=== PATIENT | female | born 1940 | race African-American/Black ===

== ENCOUNTER 2016-05-01 14:03 | Inpatient (IN) | payer OTHER ==
[2016-05-01 14:25] VITALS: BMI 30.4
--- NOTE | 2016-05-01 14:35 | PDOC ---
History of Present Illness <Alejandro Fink - Last Filed: 05/01/16 17:23> - General History Source: Patient Exam Limitations: No Limitations - History of Present Illness Initial Comments: 05/01/16 15:45 The patient is a 76-yea-old woman, accompanied by daughter, with a significant past medical history of hypertension, congestive heart failure (on 80mg of Lasix), renal failure s/p renal stents, non-insulin dependent diabetes mellitus and breast Ca (currently on Tamoxifen) who presents to the emergency department via EMS for further evaluation of shortness of breath for the past 2 days. As per EMS, the patient was noted to be lethargic, short of breath with associated bilateral leg swelling by her visiting nurse. The visiting nurse performed a physical examination and noted "fluid in her lungs", and did not feel comfortable taking care of her and EMS was activated. As per daughter, it is unaware if patient is complaint with her Lasix (80 mg). Patient was recently admitted to this hospital for CHF exacerbation, for which during discharged, the patient's Lasix was discussed as she is in renal failure. Primary Care Physician: Joe Recinos [phone] Sales Driver/Oncologist: Dr. Josue Orozco ([phone] <Dana Samuel - Last Filed: 05/01/16 18:08> - General Stated Complaint: SWELLING OF THE LEG Past History - Past Medical History Anemia: Yes Asthma: No Cancer: Yes (right breast ca) Cardiac Disorders: Yes (CHF) CVA: No COPD: No CHF: No Dementia: No Diabetes: Yes GI Disorders: Yes (small bowel obstruction) Disorders: No HTN: Yes Hypercholesterolemia: No Liver Disease: No Suicide Attempt (Hx): No Seizures: No Thyroid Disease: No - Surgical History Abdominal Surgery: No Appendectomy: No Cardiac Surgery: No Cholecystectomy: No Lung Surgery: No Neurologic Surgery: No Orthopedic Surgery: Yes - Immunization History Td Vaccination: Yes Immunization Up to Date: Yes - Psycho/Social/Smoking Cessation Hx Anxiety: No Suicidal Ideation: No Smoking Status: No Smoking History: Never smoked Have you smoked in the past 12 months: No Number of Cigarettes Smoked Daily: 0 If you are a former smoker, when did you quit?: 40 yrs ago Cigars Per Day: 0 Information on smoking cessation initiated: No Hx Alcohol Use: No Drug/Substance Use Hx: No Substance Use Type: None Hx Substance Use Treatment: No <Alejandro Fink - Last Filed: 05/01/16 17:23> <Dana Samuel - Last Filed: 05/01/16 18:08> - Past Medical History Allergies/Adverse Reactions: Allergies Allergy/AdvReac Type Severity Reaction Status Date / Time No Known Drug Allergies Allergy Verified 05/01/16 14:38 Home Medications: Ambulatory Orders Amlodipine Besylate [Norvasc -] 5 mg PO DAILY 05/01/16 Atenolol [Tenormin] 50 mg PO DAILY 05/01/16 Calcium Acetate [Phoslo -] 667 mg PO TID 05/01/16 Dronabinol [Marinol] 5 mg PO DAILY 05/01/16 Furosemide [Lasix] 80 mg PO DAILY 05/01/16 Oxycodone HCl 5 mg PO QID 05/01/16 Pantoprazole Sodium [Protonix] 40 mg PO DAILY 05/01/16 Polyethylene Glycol 3350 [Miralax (For Daily Use) -] 17 gm PO DAILY 05/01/16 Sitagliptin Phosphate [Januvia] 25 mg PO DAILY 05/01/16 Tamoxifen Citrate 20 mg PO DAILY 05/01/16 Review of Systems - Review of Systems Able to Perform ROS?: Yes Comments:: 05/01/16 15:45 GENERAL/CONSTITUTIONAL: Yes: +Weakness. No fever or chills. HEAD, EYES, EARS, NOSE AND THROAT: No change in vision. No ear pain or discharge. No sore throat. CARDIOVASCULAR: Yes: +Shortness of breath. No chest pain. RESPIRATORY: No cough, wheezing, or hemoptysis. GASTROINTESTINAL: No nausea, vomiting, diarrhea or constipation. GENITOURINARY: No dysuria, frequency, or change in urination. MUSCULOSKELETAL: No joint or muscle swelling or pain. No neck or back pain. SKIN: No rash NEUROLOGIC: No headache, vertigo, loss of consciousness, or change in strength/ sensation. ENDOCRINE: No increased thirst. No abnormal weight change. HEMATOLOGIC/LYMPHATIC: No anemia, easy bleeding, or history of blood clots. ALLERGIC/IMMUNOLOGIC: No hives or skin allergy. <Dana Samuel - Last Filed: 05/01/16 18:08> *Physical Exam - Vital Signs Last Vital Signs Temp Pulse Resp BP Pulse Ox 98.6 F 52 L 19 116/77 97 05/01/16 14:18 05/01/16 14:18 05/01/16 14:18 05/01/16 14:18 05/01/16 14:18 <Alejandro Fink - Last Filed: 05/01/16 17:23> - Vital Signs Last Vital Signs Temp Pulse Resp BP Pulse Ox 98.6 F 52 L 19 116/77 97 05/01/16 14:18 05/01/16 14:18 05/01/16 14:18 05/01/16 14:18 05/01/16 14:18 - Physical Exam Comments: 05/01/16 15:45 GENERAL: Awake, alert. On non-rebreather. HEAD: No signs of trauma. +JVD, bilaterally. EYES: PERRLA, EOMI, sclera anicteric, conjunctiva clear ENT: Auricles normal inspection, hearing grossly normal, nares patent, oropharynx clear without exudates. NECK: Normal ROM, supple, no lymphadenopathy, JVD, or masses LUNGS: +There are rales in the lower lung bases, bilaterally. HEART: Regular rate and rhythm, normal S1 and S2, no murmurs, rubs or gallops ABDOMEN: Soft, nontender, normoactive bowel sounds. No guarding, no rebound. No masses EXTREMITIES: Normal range of motion, 3+ pitting edema bilaterally. No clubbing or cyanosis. No cords, erythema, or tenderness. PT pulses 2+ palpable but DP pulses not palpable NEUROLOGICAL: Cranial nerves II through XII grossly intact. Normal speech. SKIN: There is skin discoloration of the distal tibia <Dana Samuel - Last Filed: 05/01/16 18:08> ED Treatment Course - LABORATORY CBC & Chemistry Diagram: 05/01/16 15:05 05/01/16 15:05 <Alejandro Fink - Last Filed: 05/01/16 17:23> - LABORATORY CBC & Chemistry Diagram: 05/01/16 15:05 05/01/16 15:05 - ADDITIONAL ORDERS Additional order review: 05/01/16 15:05 RBC 2.73 L MCV 93.5 MCHC 32.0 RDW 16.7 H MPV 9.4 D Neutrophils % 79.2 Lymphocytes % 10.0 Monocytes % 9.3 Eosinophils % 0.9 Basophils % 0.6 <Dana Samuel - Last Filed: 05/01/16 18:08> Medical Decision Making - Medical Decision Making 05/01/16 17:06 A call was placed to patient's Primary Care Physician, Dr. Briseyda Recinos at [phone]. Awaiting call back. 05/01/16 17:[address] Briseyda Recinos. Case was discussed. Accepts case. Would like Rubber Washer, Dr. Cade Altamirano and Gluer Machine Setup Operator, Dr. Chapincito Jordan on consult. <Dana Samuel - Last Filed: 05/01/16 18:08> *DC/Admit/Observation/Transfer - Discharge Dispostion Admit: Yes <Alejandro Fink - Last Filed: 05/01/16 17:23> - Attestations Scribe Attestion: 05/01/16 15:45 Documentation prepared by Dana Samuel, acting as registered medical transcriptionist for Alejandro Fink MD. <Dana Samuel - Last Filed: 05/01/16 18:08> Diagnosis at time of Disposition: CHF (congestive heart failure) - Discharge Dispostion Condition at time of disposition: Guarded - Referrals Referrals: Briseyda Recinos MD [Primary Care Provider] -
[2016-05-01] MEDS ORDERED: FUROSEMIDE 40 MG/4 ML INJECTABLE VIAL IVPUSH ONE (14:44)
[2016-05-01 15:34] LABS: BASOPHIL 0.6 % (0-2.0); EOSINOPHIL 0.9 % (0-4.5); MEAN CELL VOLUME 93.5 fl (80-96); MEAN PLT VOLUME 9.4 fl (7.5-11.1); NEUTROPHILS 79.2 % (42.8-82.8); PLATELET COUNT 133 K/MM3 (134-434); RDW 16.7 % (11.6-15.6); WHITE BLOOD COUNT 4.3 K/mm3 (4.0-10.0)
[2016-05-01 15:47] LABS: INR 1.2 (0.82-1.09); PROTHROMBIN TIME (PATIENT) 13.3 SEC (9.98-11.88)
[2016-05-01] MEDS ORDERED: FUROSEMIDE 40 MG/4 ML INJECTABLE VIAL ONE (15:49)
[2016-05-01 15:50] LABS: ACTIVATED PTT 56.7 SECONDS (26.9-34.4)
[2016-05-01 16:01] LABS: ALBUMIN 2.3 g/dl (3.4-5.0); ANION GAP 7 (8-16); BILIRUBIN,TOTAL 0.2 mg/dL (0.2-1.0); CALCIUM 7.9 mg/dL (8.5-10.1); CO2 25 mmol/L (21-32); CREATININE 3.4 mg/dL (0.55-1.02); GLUCOSE,RANDOM 82 mg/dL (74-106); MAGNESIUM 2.3 mg/dL (1.8-2.4); SGOT/AST 48 U/L (15-37); SGPT/ALT 24 U/L (12-78); TOT PROT 7.3 g/dl (6.4-8.2)
[2016-05-01 16:03] LABS: ALK PHOS 164 U/L (45-117); TROPONIN I < 0.02 ng/ml (0.00-0.05)
[2016-05-01] MEDS ORDERED: oxyCODONE HCL 5 MG TABLET PO PRN (21:08)
[2016-05-01] MEDS ORDERED: VANCOMYCIN 1 GRAM (PRE-DOCKED) 1,000 MG/250 ML BAG IVPB ONE (23:15)
[2016-05-02 01:05] LABS: URINE APPEARANCE SLCLOUDY; URINE BILIRUBIN NEGATIVE (NEGATIVE); URINE COLOR STRAW; URINE GLUCOSE (UA) NEGATIVE (NEGATIVE); URINE KETONE NEGATIVE (NEGATIVE); URINE NITRITE NEGATIVE (NEGATIVE); URINE PROTEIN NEGATIVE (NEGATIVE); URINE UROBILINOGEN NEGATIVE E.U./dl (0.2-1.0)
[2016-05-02 01:18] LABS: URINE BLOOD 2+ (NEGATIVE)
[2016-05-02 01:19] LABS: URINE LEUK ESTERASE 3+ (NEGATIVE)
[2016-05-02 01:23] LABS: CALCIUM OXALATE CRYSTALS RARE /hpf (NONE SEEN); URINE BACTERIA MODERATE /hpf (NONE SEEN); URINE HYALINE CAST 3 /lpf; URINE RBC 42 /hpf (0-3); URINE WBC 74 /hpf (3-5); YEAST MANY
--- NOTE | 2016-05-02 02:03 | HOSP ---
Addendum entered and electronically signed by Gloria Worthy RES 05/02/16 02: 05: hypotention may be due to overdiuresis (80 mg IV lasix push in ED). record i and o Original Note: Subjective - Review of Symptoms Events since last encounter: hypotension, hypothermia Subjective: patient aaox3, nad, resting comfortably, responsive, feels well and has no complaints. denies f/c, dizziness, h/a, sob, nausea, chest pain. HEENT: No: Head Aches Pulmonary: No: Dyspnea, Cough, Pleuritic Chest Pain, Other Cardiovascular: No: Chest Pain, Palpitations, Orthopnea, Paroxysmal Noc. Dyspnea , Edema, Light Headedness, Other Gastrointestinal: No: Nausea Neurological: No: Weakness, Confusion Physical Examination Vital Signs: Vital Signs Temperature 94.5 F L 05/02/16 01:13 Pulse Rate 54 L 05/01/16 21:50 Respiratory Rate 16 05/01/16 21:50 Blood Pressure 80/44 05/02/16 01:13 O2 Sat by Pulse Oximetry (%) 100 05/01/16 21:50 Constitutional: Yes: No Distress, Calm Eyes: Yes: Conjunctiva Clear HENT: Yes: Normocephalic Neck: Yes: Supple Cardiovascular: Yes: Regular Rate and Rhythm, S1, S2 Respiratory: Yes: Rhonchi (mild bibasilar) Gastrointestinal: Yes: Normal Bowel Sounds, Soft Extremities: Yes: Other (warm) Edema: LLE: 1+, RLE: 1+ Peripheral Pulses: Left Radial: 2+, Right Radial: 2+ Neurological: Yes: Alert, Oriented Psychiatric: Yes: Alert, Oriented Hospitalist Encounter Assessment: hypertension in 76 F with Acute on chronic CHF exacerbation (diastolic) likely due to prolonged supine position or vasovagal during sleep -asymptomatic. -hold lasix and BP meds for now -if systolic drops below 70 or if mental status changes then patietn may need dopamine drip but not at this time -vitals q4 h -mental status check q 1 h Visit type - Emergency Visit Emergency Visit: No - New Patient This patient is new to me today: Yes Date on this admission: 05/02/16 - Critical Care Critical Care patient: No
[2016-05-02] MEDS ORDERED: PNEUMOC 13-VAL CONJ-DIP CRM/PF 0.5 ML DISP.SYRIN IM ONE (02:56)
--- NOTE | 2016-05-02 04:25 | CONSULT ---
Consult Consult Specialty:: Pulm/CCM Reason for Consultation:: hypotension, CHF - History of Present Illness Chief Complaint: SOB History of Present Illness: This is a 76 yo woman with DM, HTN, diastolic HF, CKD, breast CA w/ metastasis on chemo who presented with increased LE edema and SOB x2 days. EMS activated by [facility] for lethargy and SOB. In the ED. In ED labs notable for SCr 3.4, previously 1.0 in 2015. CXR with pulmonary vascular congestion and effusions. BNP 12k. Lasix 80mg IV given. Patient admitted to hospitalist service. While on the floor she was noted to have SBP 70s and she was transferred to ICU for possible pressors +/- inotropic support. In the ICU patient seen, awake, alert. Hemodynamically stable: SBP 140-160s. Labs notable for u/a +LE, wbc 50s. She was hypothermic on the floor. Keflex started for UTI. Bentley placed and lasix 80mg x1 given. ECHO pending. - History Source History Provided By: Patient, Family Member - Past Medical History Cardio/Vascular: Yes: CAD, HTN Gastrointestinal: Yes: Other (SEROSAL METS WIHT HISTORY OF SBO) ...: No Rheumatology: Yes: Other (Surgery on right hip for metastasis and ?pathological fracture.) Endocrine: Yes: Diabetes Mellitus - Alcohol/Substance Use Hx Alcohol Use: No - Smoking History Smoking history: Former smoker Have you smoked in the past 12 months: No Aproximately how many cigarettes per day: 0 If you are a former smoker, when did you quit?: 40 yrs ago - Social History Usual Living Arrangement: Alone ADL: Support Services Occupation: retired History of Recent Travel: No Home Medications - Allergies Allergies/Adverse Reactions: Allergies Allergy/AdvReac Type Severity Reaction Status Date / Time No Known Drug Allergies Allergy Verified 05/01/16 14:38 - Home Medications Home Medications: Ambulatory Orders Amlodipine Besylate [Norvasc -] 5 mg PO DAILY 05/01/16 Atenolol [Tenormin] 50 mg PO DAILY 05/01/16 Calcium Acetate [Phoslo -] 667 mg PO TID 05/01/16 Dronabinol [Marinol] 5 mg PO DAILY 05/01/16 Furosemide [Lasix] 80 mg PO DAILY 05/01/16 Oxycodone HCl 5 mg PO QID 05/01/16 Pantoprazole Sodium [Protonix] 40 mg PO DAILY 05/01/16 Polyethylene Glycol 3350 [Miralax (For Daily Use) -] 17 gm PO DAILY 05/01/16 Sitagliptin Phosphate [Januvia] 25 mg PO DAILY 05/01/16 Tamoxifen Citrate 20 mg PO DAILY 05/01/16 Family Disease History - Family Disease History Family History: Unremarkable Review of Systems - Review of Systems Constitutional: reports: Weakness Cardiovascular: reports: Edema, Shortness of Breath Respiratory: reports: SOB on Exertion Physical Exam Vital Signs: Vital Signs Temperature 96.7 F L 05/02/16 02:34 Pulse Rate 54 L 05/01/16 21:50 Respiratory Rate 16 05/01/16 21:50 Blood Pressure 76/50 05/02/16 02:34 O2 Sat by Pulse Oximetry (%) 100 05/01/16 21:50 Current Medications Atenolol (Tenormin -) 50 mg PO DAILY [facility] Calcium Acetate (Phoslo -) 667 mg PO TIDCM [facility] Dronabinol (Marinol -) 5 mg PO DAILY [facility] Oxycodone HCl (Roxicodone -) 5 mg PO Q6H PRN PRN Reason: BACK PAIN Pantoprazole Sodium (Protonix -) 40 mg PO DAILY [facility] Pneumococcal 13-Valent Conj Vacc (Prevnar 13 Syringe -) 0.5 ml IM .ONCE ONE Stop: 05/02/16 02:57 Polyethylene Glycol (Miralax (For Daily Use) -) 17 gm PO DAILY [facility] Sitagliptin Phosphate (Januvia -) 25 mg PO DAILY@0700 [facility] Tamoxifen Citrate (Tamoxifen Citrate) 20 mg PO DAILY [facility] Constitutional: Yes: No Distress, Calm Eyes: Yes: PERRL Cardiovascular: Yes: Regular Rate and Rhythm, S1, S2 Respiratory: Yes: Rales Gastrointestinal: Yes: Normal Bowel Sounds, Soft Edema: LLE: 4+, RLE: 4+ Neurological: Yes: Alert, Oriented Psychiatric: Yes: Alert, Oriented Labs: CBCD WBC 4.3 K/mm3 (4.0-10.0) D 05/01/16 15:05 RBC 2.73 M/mm3 (3.60-5.2) L 05/01/16 15:05 Hgb 8.2 GM/dL (10.7-15.3) L 05/01/16 15:05 Hct 25.5 % (32.4-45.2) L 05/01/16 15:05 MCV 93.5 fl (80-96) 05/01/16 15:05 MCHC 32.0 g/dl (32.0-36.0) 05/01/16 15:05 RDW 16.7 % (11.6-15.6) H 05/01/16 15:05 Plt Count 133 K/MM3 (134-434) L D 05/01/16 15:05 MPV 9.4 fl (7.5-11.1) D 05/01/16 15:05 CMP Sodium 143 mmol/L (136-145) 05/01/16 15:05 Potassium 4.6 mmol/L (3.5-5.1) D 05/01/16 15:05 Chloride 111 mmol/L (98-107) H D 05/01/16 15:05 Carbon Dioxide 25 mmol/L (21-32) 05/01/16 15:05 Anion Gap 7 (8-16) L 05/01/16 15:05 BUN 85 mg/dL (7-18) H D 05/01/16 15:05 Creatinine 3.4 mg/dL (0.55-1.02) H 05/01/16 15:05 Creat Clearance w eGFR 13.17 (>60) 05/01/16 15:05 Random Glucose 82 mg/dL (74-106) 05/01/16 15:05 Calcium 7.9 mg/dL (8.5-10.1) L 05/01/16 15:05 Total Bilirubin 0.2 mg/dL (0.2-1.0) D 05/01/16 15:05 AST 48 U/L (15-37) H D 05/01/16 15:05 ALT 24 U/L (12-78) D 05/01/16 15:05 Alkaline Phosphatase 164 U/L (45-117) H D 05/01/16 15:05 Total Protein 7.3 g/dl (6.4-8.2) 05/01/16 15:05 Albumin 2.3 g/dl (3.4-5.0) L D 05/01/16 15:05 CARDIAC ENZYMES Creatine Kinase 41 IU/L (26-192) 05/01/16 15:05 Troponin I < 0.02 ng/ml (0.00-0.05) 05/01/16 15:05 Urine Test Results Urine Color Straw 05/02/16 00:17 Urine Appearance Slcloudy 05/02/16 00:17 Urine pH 6.0 (5.0-8.0) 05/02/16 00:17 Ur Specific [place] 1.006 (1.001-1.035) 05/02/16 00:17 Urine Protein Negative (NEGATIVE) 05/02/16 00:17 Urine Glucose (UA) Negative (NEGATIVE) 05/02/16 00:17 Urine Ketones Negative (NEGATIVE) 05/02/16 00:17 Urine Blood 2+ (NEGATIVE) H 05/02/16 00:17 Urine Nitrite Negative (NEGATIVE) 05/02/16 00:17 Urine Bilirubin Negative (NEGATIVE) 05/02/16 00:17 Ur Leukocyte Esterase 3+ (NEGATIVE) H 05/02/16 00:17 Urine RBC 42 /hpf (0-3) 05/02/16 00:17 Urine WBC 74 /hpf (3-5) 05/02/16 00:17 Ur Epithelial Cells Rare /hpf (FEW) 05/02/16 00:17 Urine Bacteria Moderate /hpf (NONE SEEN) 05/02/16 00:17 Imaging - Results Chest X-ray: Report Reviewed, Image Reviewed Problem List - Problems (1) CHF (congestive heart failure) Code(s): I50.9 - HEART FAILURE, UNSPECIFIED (2) Breast cancer Code(s): C50.919 - MALIGNANT NEOPLASM OF UNSP SITE OF UNSPECIFIED FEMALE BREAST (3) Kidney failure Code(s): N19 - UNSPECIFIED KIDNEY FAILURE (4) UTI (urinary tract infection) Code(s): N39.0 - URINARY TRACT INFECTION, SITE NOT SPECIFIED Assessment/Plan a/p: 76 yo DM, HTN, stage 4 breast CA, presented with CHF exacerbation, renal failure, UTI -O2 for Sat >92% -lasix for O>I -no acute indication for pressors -ECHO today -consider inotropic assisted diuresis if non responsive to lasix -bentley placed for strict I&O's -urine lytes -renal dose medications -consider renal and cardiology consults -keflex for UTI -heparin sq for DVT prophylaxis Boerem ACNP Pulm/CCM CCT: 35m
[2016-05-02] MEDS ORDERED: FUROSEMIDE 40 MG/4 ML INJECTABLE VIAL IVPUSH ONE (04:28)
[2016-05-02] MEDS ORDERED: oxyCODONE HCL 5 MG TABLET PO PRN (04:59)
[2016-05-02] MEDS: CEPHALEXIN MONOHYDRATE 500 MG CAPSULE (UD) PO SCH ×2 (05:41→10:15)
[2016-05-02 06:38] LABS: BASOPHIL 0.5 % (0-2.0); EOSINOPHIL 0.9 % (0-4.5); MCH 30.4 pg (25.7-33.7); MCHC 32.5 g/dl (32.0-36.0); MEAN CELL VOLUME 93.4 fl (80-96); MEAN PLT VOLUME 9.2 fl (7.5-11.1); NEUTROPHILS 74.8 % (42.8-82.8); PLATELET COUNT 116 K/MM3 (134-434); RDW 16.7 % (11.6-15.6)
[2016-05-02] MEDS ORDERED: sitaGLIPtin PHOSPHATE 25 MG TABLET (FP) PO SCH (07:00)
[2016-05-02 07:05] LABS: ALBUMIN 2.2 g/dl (3.4-5.0); BILIRUBIN,TOTAL 0.2 mg/dL (0.2-1.0); CALCIUM 8.1 mg/dL (8.5-10.1); CREATININE 3.6 mg/dL (0.55-1.02)
[2016-05-02] MEDS ORDERED: CALCIUM ACETATE 667 MG CAPSULE (FP) PO SCH (08:00)
[2016-05-02] MEDS: CALCIUM ACETATE 667 MG CAPSULE (FP) PO SCH ×3 (08:23→17:18)
--- NOTE | 2016-05-02 09:57 | HP ---
Admitting History and Physical - Primary Care Physician PCP: Briseyda Recinos - Admission Chief Complaint: SOB History of Present Illness: 76 yrs old female admitted for SOB and lethargy. patient well known to me from the office She was admitted here in January for similar complaints of CHF and acute on chronic kidney disease This time she was observed by her visiting nurse to be lethargic and worsening shortness of breath with fluid overload, lower extremity edema and EMS was called. She is transferred to the ICU when she became hypotensive and hypothermic in telemetry. patient is awake and alert, she received Lasix yesterday, she has a Guerrero catheter She was seen by her level vial sealer and hose maker after previous discharge from the hospital. During that admission, she had bilateral ureteral stent placement due to left kidney obstructive uropathy. She walks with a walker but finds it difficult to ambulate due to shortness of breath and edema History Source: Patient Limitations to Obtaining History: No Limitations - Past Medical History Cardiovascular: Yes: CAD, HTN Gastrointestinal: Yes: Other (SEROSAL METS WIHT HISTORY OF SBO) ...: No Heme/Onc: Yes: Anemia, Cancer (metastatic breast CA) Rheumatology: Yes: Other (Surgery on right hip for metastasis and ?pathological fracture.) Endocrine: Yes: Diabetes Mellitus - Smoking History Smoking history: Former smoker Have you smoked in the past 12 months: No Aproximately how many cigarettes per day: 0 If you are a former smoker, when did you quit?: 40 yrs ago - Alcohol/Substance Use Hx Alcohol Use: No - Social History ADL: Support Services Occupation: retired History of Recent Travel: No Home Medications - Allergies Allergies/Adverse Reactions: Allergies Allergy/AdvReac Type Severity Reaction Status Date / Time No Known Drug Allergies Allergy Verified 05/01/16 14:38 - Home Medications Home Medications: Ambulatory Orders Amlodipine Besylate [Norvasc -] 5 mg PO DAILY 05/01/16 Atenolol [Tenormin] 50 mg PO DAILY 05/01/16 Calcium Acetate [Phoslo -] 667 mg PO TID 05/01/16 Dronabinol [Marinol] 5 mg PO DAILY 05/01/16 Furosemide [Lasix] 80 mg PO DAILY 05/01/16 Oxycodone HCl 5 mg PO QID 05/01/16 Pantoprazole Sodium [Protonix] 40 mg PO DAILY 05/01/16 Polyethylene Glycol 3350 [Miralax (For Daily Use) -] 17 gm PO DAILY 05/01/16 Sitagliptin Phosphate [Januvia] 25 mg PO DAILY 05/01/16 Tamoxifen Citrate 20 mg PO DAILY 05/01/16 Review of Systems - Review of Systems Constitutional: denies: Chills, Fever Cardiovascular: reports: Edema, Shortness of Breath. denies: Chest Pain, Palpitations Respiratory: reports: Cough Physical Examination Vital Signs: Vital Signs Temperature 97.7 F 05/02/16 06:35 Pulse Rate 62 05/02/16 09:19 Respiratory Rate 19 05/02/16 09:19 Blood Pressure 104/87 05/02/16 09:19 O2 Sat by Pulse Oximetry (%) 100 05/01/16 21:50 Constitutional: Yes: Mild Distress Cardiovascular: Yes: Regular Rate and Rhythm Respiratory: Yes: Diminished, Rales Gastrointestinal: Yes: Normal Bowel Sounds, Soft, Other (edema of the abdominal wall). No: Distention, Tenderness Edema: Yes (proximal edema) Psychiatric: Yes: Alert, Oriented Labs: CBC, BMP 05/02/16 05:20 05/02/16 05:20 Imaging - Results Chest X-ray: Image Reviewed (bilateral congestive changes) EKG: Image Reviewed Problem List - Problems (1) CHF (congestive heart failure) Code(s): I50.9 - HEART FAILURE, UNSPECIFIED (2) Chronic diastolic CHF (congestive heart failure) Code(s): I50.32 - CHRONIC DIASTOLIC (CONGESTIVE) HEART FAILURE (3) DM II (diabetes mellitus, type II), controlled Code(s): E11.9 - TYPE 2 DIABETES MELLITUS WITHOUT COMPLICATIONS Qualifiers: Diabetes mellitus complication status: with neurologic complications Diabetes mellitus complication detail: with autonomic neuropathy (4) Edema Code(s): R60.9 - EDEMA, UNSPECIFIED (5) HLD (hyperlipidemia) Code(s): E78.5 - HYPERLIPIDEMIA, UNSPECIFIED (6) UTI (urinary tract infection) Code(s): N39.0 - URINARY TRACT INFECTION, SITE NOT SPECIFIED Qualifiers: Urinary tract infection type: acute cystitis (7) Hypotension Code(s): I95.9 - HYPOTENSION, UNSPECIFIED Qualifiers: Hypotension type: other hypotension type Qualified Code(s): I95.89 - Other hypotension Assessment/Plan plan received Lasix yesterday and today nephrology evaluation Check kidney and urinary bladder sono She has recent bilateral ureteral stent placements, also has a positive urinalysisbeing treated for UTI with antibiotics, urology evaluationmay need to remove stents Transfuse packed cells For hypothermiarule out UTI sepsis as a cause, check cortisol levels, transfuse packed cells today Hold atenolol due to hypotension Cardiology evaluation Check daily weights Spoke to patient about advanced directives today, she wishes to go home , not decided on DNR spoke to staff CC time35 minutes
[2016-05-02] MEDS ORDERED: PANTOPRAZOLE 40 MG TABLET (FP) PO SCH (10:00)
[2016-05-02] MEDS ORDERED: DRONABINOL 5 MG CAPSULE PO SCH (10:00)
[2016-05-02] MEDS ORDERED: ATENOLOL 50 MG TABLET (FP) PO SCH ×2 (10:00)
[2016-05-02] MEDS ORDERED: POLYETHYLENE GLYCOL 3350 119 GM BTL PO SCH (10:00)
[2016-05-02] MEDS ORDERED: TAMOXIFEN CITRATE 10 MG TABLET PO SCH (10:00)
[2016-05-02] MEDS: TAMOXIFEN CITRATE 10 MG TABLET PO SCH (10:15)
[2016-05-02] MEDS: sitaGLIPtin PHOSPHATE 25 MG TABLET (FP) PO SCH (10:15)
[2016-05-02] MEDS: HEPARIN NA (PORCINE) 5,000 UNITS/ML 1ML VIAL SQ SCH ×2 (10:19→21:37)
[2016-05-02] MEDS: PANTOPRAZOLE 40 MG TABLET (FP) PO SCH (10:20)
[2016-05-02] MEDS: POLYETHYLENE GLYCOL 3350 119 GM BTL PO SCH (10:22)
--- NOTE | 2016-05-02 11:19 | CONSULT ---
Consult Consult Specialty:: Cardiology Referred by:: Dr. Recinos/Dr. Mejias Reason for Consultation:: CHF - History of Present Illness Chief Complaint: admitted for hypotension History of Present Illness: 76 year old woman with a history of HTN, chronic diastolic chf, CKD, JOSUÉ h/o stents, DMII, breast Ca admitted with sob, lethargy, b/l LE swelling, hypotension. Pt. seen and examined in the ICU in nad. pt awake, alert, and oriented. she states she is felling well. she denies being sob at home. denies any chest pain, palpitations, lightheadedness, dizziness, syncope, or near syncope. no pnd or orthopnea. 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 Cardio/Vascular: Yes: CAD, CHF, HTN, Hyperlipdemia Gastrointestinal: Yes: Other (SEROSAL METS WIHT HISTORY OF SBO) Renal/: Yes: Renal Failure ...: No Heme/Onc: Yes: Cancer Rheumatology: Yes: Other (Surgery on right hip for metastasis and ?pathological fracture.) Endocrine: Yes: Diabetes Mellitus - Alcohol/Substance Use Hx Alcohol Use: No - Smoking History Smoking history: Former smoker Have you smoked in the past 12 months: No Aproximately how many cigarettes per day: 0 If you are a former smoker, when did you quit?: 40 yrs ago - Social History Usual Living Arrangement: Alone ADL: Support Services Occupation: retired History of Recent Travel: No Home Medications - Allergies Allergies/Adverse Reactions: Allergies Allergy/AdvReac Type Severity Reaction Status Date / Time No Known Drug Allergies Allergy Verified 05/01/16 14:38 - Home Medications Home Medications: Ambulatory Orders Amlodipine Besylate [Norvasc -] 5 mg PO DAILY 05/01/16 Atenolol [Tenormin] 50 mg PO DAILY 05/01/16 Calcium Acetate [Phoslo -] 667 mg PO TID 05/01/16 Dronabinol [Marinol] 5 mg PO DAILY 05/01/16 Furosemide [Lasix] 80 mg PO DAILY 05/01/16 Oxycodone HCl 5 mg PO QID 05/01/16 Pantoprazole Sodium [Protonix] 40 mg PO DAILY 05/01/16 Polyethylene Glycol 3350 [Miralax (For Daily Use) -] 17 gm PO DAILY 05/01/16 Sitagliptin Phosphate [Januvia] 25 mg PO DAILY 05/01/16 Tamoxifen Citrate 20 mg PO DAILY 05/01/16 Family Disease History - Family Disease History Family History: Denies Review of Systems - Review of Systems Constitutional: reports: Lethargy, Malaise, Weakness. denies: No Symptoms, Chills, Diaphoresis, Fever, Loss of Appetite, Night Sweats, Unintentional Wgt. Loss, Other Eyes: denies: No Symptoms, Blind Spots, Blurred Vision, Double Vision, Eye Pain , Floaters, Photophobia, Recent Change in Vision, Other HENT: denies: No Symptoms, Difficult Swallowing, Ear Discharge, Ear Pain, Epistaxis, Gingival Bleeding, Hearing Loss, Mouth Swelling, Nasal Congestion, Ocular Prosthesis, Throat Pain, Toothache, Ringing in Ears, Other Neck: denies: No Symptoms, Decreased ROM, Lumps, Pain on Movement, Stiffness, Swollen Glands, Tenderness, Other Cardiovascular: reports: Edema, Shortness of Breath. denies: No Symptoms, Chest Pain, Palpitations, Other Respiratory: reports: SOB, SOB on Exertion. denies: No Symptoms, Cough, Exercise Intolerance, Hemoptysis, Orthopnea, PND, Snoring, Wheezing, Other Gastrointestinal: denies: No Symptoms, Abdominal Pain, Bloating, Constipation, Diarrhea, Dysphagia, Indigestion, Melena, Nausea, Rectal Bleeding, Vomiting, Vomiting Blood, Other Genitourinary: denies: No Symptoms, Burning, Discharge, Dysuria, Flank Pain, Frequency, Hematuria, Incontinence, Lesions, Menses, Pain, Testicular Mass, Testicular Pain, Testicular Swelling, Urgency, Vaginal Bleeding, Other Breasts: denies: No Symptoms Reported, See HPI, Breast Implants, Discharge from Nipple, Lumps, Pain, Skin Changes, Other Musculoskeletal: denies: No Symptoms, Back Pain, Crepitus, Decreased ROM, Extremity Pain, Joint Pain, Joint Swelling, Muscle Pain, Muscle Cramps, Muscle Weakness, Other Integumentary: denies: No Symptoms, Blister, Bruising, Change in Color, Eczema, Erythema, Incision, Lesions, Lump, Pallor, Pruritis, Rash, Wound, Other Neurological: reports: Weakness. denies: No Symptoms, Change in LOC, Change in Speech, Confusion, Dizziness, Headache, Incoordination, Numbness, Parasthesia, Pre-Existing Deficit, Seizure, Syncope, Tremors, Unsteady Gait, Other Endocrine: denies: No Symptoms, Excessive Sweating, Flushing, Increased Hunger, Increased Thirst, Intolerance to Cold, Intolerance to Heat, Unexplained Weight Gain, Unexplained Weight Loss, Other Hematology/Lymphatic: denies: No Symptoms, Easily Bruised, Excessive Bleeding, Swollen Glands, Other Psychiatric: denies: No Symptoms, Altered Sleep Pattern, Anxiety, Depression, Hallucinations, Panic, Paranoia, Suicidal, Other - Risk Factors Known Risk Factors: Yes: Age, Diabetes Mellitus, Hypercholesterolemia, Hypertension, Physical Inactivity Vital Signs: Vital Signs Temperature 97.4 F L 05/02/16 10:30 Pulse Rate 64 05/02/16 10:30 Respiratory Rate 19 05/02/16 10:30 Blood Pressure 108/74 05/02/16 10:30 O2 Sat by Pulse Oximetry (%) 97 05/02/16 10:10 Constitutional: Yes: Well Nourished, No Distress, Calm Eyes: Yes: WNL, Conjunctiva Clear, EOM Intact, PERRL HENT: Yes: WNL, Atraumatic, Normocephalic Neck: Yes: WNL, Supple, Trachea Midline Respiratory: Yes: Regular, Diminished, On Nasal O2, Rales. No: Rhonchi, Wheezes Gastrointestinal: Yes: WNL, Normal Bowel Sounds, Soft. No: Distention, Tenderness Cardiovascular: Yes: Regular Rate and Rhythm. No: Bradycardia, Tachycardia, Pulse Irregular, Gallop, Rub, Varicosities JVD: No Carotid Bruit: No PMI: Non-Displaced Heart Sounds: Yes: S1, S2. No: Split S2, S3, S4, Clicks, Gallop, Rub, Bruit Murmur: No: Systolic Murmur, Diastolic Murmur Musculoskeletal: Yes: Muscle Weakness Extremities: Yes: WNL Edema: Yes Edema: LLE: 2+, RLE: 2+ Peripheral Pulses WNL: Yes Peripheral Pulses: 2+ Left Doralis Pedis, 2+ Right Dorsalis Pedis Integumentary: Yes: WNL Neurological: Yes: Alert, Oriented Psychiatric: Yes: Alert, Oriented - Other Data Labs, Other Data: CBC, BMP 05/02/16 05:20 05/02/16 05:20 INR, PTT INR 1.20 (0.82-1.09) H 05/01/16 15:05 ekg-sinus anum 50bpm, rbbb, septal infarct, nonspecific ST abnl Echo: Report Reviewed Ejection Fraction %: LVEF > or = 40 % Imaging - Results Chest X-ray: Report Reviewed, Image Reviewed EKG: Report Reviewed, Image Reviewed Other: Report Reviewed, Image Reviewed (tele-nsr, no arrhythmia) Problem List - Problems (1) SOB (shortness of breath) Code(s): R06.02 - SHORTNESS OF BREATH (2) Edema Code(s): R60.9 - EDEMA, UNSPECIFIED (3) Chronic diastolic CHF (congestive heart failure) Code(s): I50.32 - CHRONIC DIASTOLIC (CONGESTIVE) HEART FAILURE (4) HTN (hypertension) Code(s): I10 - ESSENTIAL (PRIMARY) HYPERTENSION (5) HLD (hyperlipidemia) Code(s): E78.5 - HYPERLIPIDEMIA, UNSPECIFIED (6) DM II (diabetes mellitus, type II), controlled Code(s): E11.9 - TYPE 2 DIABETES MELLITUS WITHOUT COMPLICATIONS Assessment/Plan 76 year old woman with a history of HTN, chronic diastolic chf, CKD, JOSUÉ h/o stents, DMII, breast Ca with mets admitted with sob, lethargy, b/l LE swelling, hypotension. SOB-likely multifactorial including acute on chronic diastolic CHF -given 1 dose of IV lasix 80mg in ER and another dose of 80mg this am -sob seems to have improved -LE edema appears chronic and actually appears improved based on wrinkling of skin -monitor I/Os and daily weights -hold off on further Lasix today and re-evaluate later today and tomorrow for need for additional Lasix -does not require inotropic assisted diuresis at this time and given etiology is diastolic dysfunction not systolic, inotropes would be unlikely to assist in diuresis -monitor bun/creat/electrolytes closely -echo from 12/2015 showed normal LV and RV function, Impaired relaxation, mild MR , mild to mod TR, small pericardial effusion -f/up repeat echo that was done this am -hold Atenolol for now as she was hypotensive on admission HTN-hypotensive on admission -hold anti-HTN meds for now will follow
[2016-05-02] MEDS: DRONABINOL 2.5 MG CAPSULE PO SCH (11:41)
--- NOTE | 2016-05-02 12:41 | CONSULT ---
Consult Consult Specialty:: Nephrology Referred by:: Drs. Briseyda Recinos/ Lina Mejias Reason for Consultation:: Abnormal kidney functions - History of Present Illness Chief Complaint: BUN 83, Cr 3.6 eGFR 12.33 ml/min/m2 History of Present Illness: Patient in the ICU Was reportedly Hypotensive on the floor, But BP improved by the time she was in the ICU. Has h/o Type 2 DM, Hypertension, CHF, CKD, CA. Breast on Tamoxifen, Chronic LE edema ? Benous stasis. Reporedly the patient has Renal artery stenting done recently. Maintains good urine output. No hematuria, No fever, No chills, o diarrhea. Serum Creatinine and BUN extremly elevated. Was normal a year ago. Also noted is severe anemia. No overt bleeding. 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 ) ...: No Rheumatology: Yes: Other (Surgery on right hip for metastasis and ?pathological fracture.) Endocrine: Yes: Diabetes Mellitus - Alcohol/Substance Use Hx Alcohol Use: No - Smoking History Smoking history: Former smoker Have you smoked in the past 12 months: No Aproximately how many cigarettes per day: 0 If you are a former smoker, when did you quit?: 40 yrs ago - Social History Usual Living Arrangement: Alone ADL: Support Services Occupation: retired History of Recent Travel: No Home Medications - Allergies Allergies/Adverse Reactions: Allergies Allergy/AdvReac Type Severity Reaction Status Date / Time No Known Drug Allergies Allergy Verified 05/01/16 14:38 - Home Medications Home Medications: Ambulatory Orders Amlodipine Besylate [Norvasc -] 5 mg PO DAILY 05/01/16 Atenolol [Tenormin] 50 mg PO DAILY 05/01/16 Calcium Acetate [Phoslo -] 667 mg PO TID 05/01/16 Dronabinol [Marinol] 5 mg PO DAILY 05/01/16 Furosemide [Lasix] 80 mg PO DAILY 05/01/16 Oxycodone HCl 5 mg PO QID 05/01/16 Pantoprazole Sodium [Protonix] 40 mg PO DAILY 05/01/16 Polyethylene Glycol 3350 [Miralax (For Daily Use) -] 17 gm PO DAILY 05/01/16 Sitagliptin Phosphate [Januvia] 25 mg PO DAILY 05/01/16 Tamoxifen Citrate 20 mg PO DAILY 05/01/16 Review of Systems - Review of Systems Constitutional: reports: No Symptoms, Weakness. denies: Night Sweats HENT: reports: No Symptoms. denies: Difficult Swallowing Respiratory: reports: No Symptoms Gastrointestinal: reports: No Symptoms. denies: Melena Genitourinary: reports: No Symptoms. denies: Burning, Dysuria, Flank Pain Breasts: reports: See HPI Musculoskeletal: reports: No Symptoms Integumentary: reports: No Symptoms Neurological: reports: Numbness, Parasthesia Physical Exam Vital Signs: Vital Signs Temperature 97.4 F L 05/02/16 10:30 Pulse Rate 61 05/02/16 11:56 Respiratory Rate 19 05/02/16 11:56 Blood Pressure 116/64 05/02/16 11:56 O2 Sat by Pulse Oximetry (%) 97 05/02/16 10:10 Constitutional: Yes: Calm Eyes: Yes: WNL HENT: Yes: WNL Neck: Yes: WNL Cardiovascular: Yes: Regular Rate and Rhythm, S1, S2 Respiratory: Yes: CTA Bilaterally Gastrointestinal: Yes: Normal Bowel Sounds, Soft Renal/: Yes: Guerrero Present (Maintains good urine output). No: CVA Tenderness - Left, CVA Tenderness - Right Edema: Yes Edema: LLE: 2+ (Has Chronic venous stasis), RLE: 2+ (Evidence of Chronic venous stasis) Labs: CBC, BMP 05/02/16 05:20 05/02/16 05:20 Problem List - Problems (1) Chronic diastolic CHF (congestive heart failure) Code(s): I50.32 - CHRONIC DIASTOLIC (CONGESTIVE) HEART FAILURE (2) DM II (diabetes mellitus, type II), controlled Code(s): E11.9 - TYPE 2 DIABETES MELLITUS WITHOUT COMPLICATIONS Qualifiers: Diabetes mellitus complication status: with neurologic complications Diabetes mellitus complication detail: with autonomic neuropathy (3) Edema Code(s): R60.9 - EDEMA, UNSPECIFIED (4) HTN (hypertension) Code(s): I10 - ESSENTIAL (PRIMARY) HYPERTENSION Qualifiers: Hypertension type: renovascular hypertension Qualified Code(s): I15.0 - Renovascular hypertension (5) Anemia Code(s): D64.9 - ANEMIA, UNSPECIFIED Qualifiers: 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, drug-induced (6) Anemia due to chemotherapy Code(s): D64.81 - ANEMIA DUE TO ANTINEOPLASTIC CHEMOTHERAPY T45.1X5A - ADVERSE EFFECT OF ANTINEOPLASTIC AND IMMUNOSUP DRUGS, INIT (7) Breast cancer Code(s): C50.919 - MALIGNANT NEOPLASM OF UNSP SITE OF UNSPECIFIED FEMALE BREAST (8) Breast cancer metastasized to bone Code(s): C50.919 - MALIGNANT NEOPLASM OF UNSP SITE OF UNSPECIFIED FEMALE BREAST C79.51 - SECONDARY MALIGNANT NEOPLASM OF BONE (9) Dehydration Code(s): E86.0 - DEHYDRATION (10) Diabetes Code(s): E11.9 - TYPE 2 DIABETES MELLITUS WITHOUT COMPLICATIONS Qualifiers: Diabetes mellitus type: type 2 Diabetes mellitus complication status: with neurologic complications (11) Kidney failure Code(s): N19 - UNSPECIFIED KIDNEY FAILURE (12) 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 Will obtain Renal vascular studies to evaluate renal perfusion Monitor Renal functions. Look for reversible components to her Acute Renal failure. Underlying Chronic Renal disease, possibly Microvascular in origin. If the azotemia worsens, may require Renal replavcement therapy. Will D/C Lasix and observe. Thank you. Will follow with you. Meli Montoya MD
--- NOTE | 2016-05-02 13:22 | PN ---
Progress Note, Physician History of Present Illness: patient seen and examined no events overnight no hypotension or tachycardia no fevers - Current Medication List Current Medications: Active Medications Calcium Acetate (Phoslo -) 667 mg PO TIDCM [facility] Last Admin: 05/02/16 11:42 Dose: 667 mg Dronabinol (Marinol -) 5 mg PO DAILY [facility] Last Admin: 05/02/16 11:41 Dose: 5 mg Heparin Sodium (Porcine) (Heparin -) 5,000 unit SQ BID [facility] Last Admin: 05/02/16 10:19 Dose: 5,000 unit Piperacillin Sod/Tazobactam Sod (Zosyn 2.25gm Ivpb (Pre-Docked)) 50 mls @ 100 mls/hr IVPB Q8H-IV [facility] Oxycodone HCl (Roxicodone -) 5 mg PO Q6H PRN PRN Reason: BACK PAIN Pantoprazole Sodium (Protonix -) 40 mg PO DAILY [facility] Last Admin: 05/02/16 10:20 Dose: 40 mg Polyethylene Glycol (Miralax (For Daily Use) -) 17 gm PO DAILY [facility] Last Admin: 05/02/16 10:22 Dose: 17 grams Sitagliptin Phosphate (Januvia -) 25 mg PO DAILY@0700 [facility] Last Admin: 05/02/16 10:15 Dose: 25 mg Tamoxifen Citrate (Tamoxifen Citrate) 20 mg PO DAILY [facility] Last Admin: 05/02/16 10:15 Dose: 20 mg - Objective Vital Signs: Vital Signs Temperature 97.4 F L 05/02/16 10:30 Pulse Rate 61 05/02/16 11:56 Respiratory Rate 19 05/02/16 11:56 Blood Pressure 116/64 05/02/16 11:56 O2 Sat by Pulse Oximetry (%) 97 05/02/16 10:10 Constitutional: Yes: Cachectic Eyes: Yes: WNL HENT: Yes: Atraumatic Neck: Yes: Supple Cardiovascular: Yes: Regular Rate and Rhythm, S1, S2 Respiratory: Yes: Other (right side clear left side minimal wheezing) Gastrointestinal: Yes: Soft Edema: Yes Edema: LLE: 2+, RLE: 2+ Labs: CBC, BMP 05/02/16 05:20 05/02/16 05:20 INR, PTT INR 1.20 (0.82-1.09) H 05/01/16 15:05 Assessment/Plan 76F with multiple medical probelms transsferred to ICU for hypothermia and hypotension Hypothermia/Hypotension: the cause is likely a component of sepsis. likely has a PNA with a RLL infiltrate on CXR with a UTI will stop Keflex will start zosyn Hypotension resolved patient is also anemia and will require 1 unit PRBCs bentley for I/O Stop lasix Repeat CXR UCx pending BCx pending will send TFTs will do ECHO diastolic CHF: will get ECHO hold lasix per renal and observe repeat CXR Breast CA with metastasis: Outpt follow up with heme/onco no further treatment warranted per heme/onc palliative consult CKD: nephrology consult appreciated f/u urine lytes trend Cr renally dose all meds bentley for I/Os hold lasix per nephrology and observe off dieuresis DM: fingersticks ACHS ISS sitagliptin Diabetic diet FEN: no IVF no electrolyte issues on diet PPx: HSQ PO protonix PT consult transfer to floor
[2016-05-02] MEDS: PIPERACILLIN/TAZOB 2.25 GM 50 ML IVPB SCH ×2 (13:24→17:15)
--- NOTE | 2016-05-02 16:33 | EKG ---
Test Reason : Blood Pressure : / mmHG Vent. Rate : 050 BPM Atrial Rate : 050 BPM P-R Int : 182 ms QRS Dur : 134 ms QT Int : 548 ms P-R-T Axes : 037 072 039 degrees QTc Int : 499 ms SINUS BRADYCARDIA RIGHT BUNDLE BRANCH BLOCK SEPTAL INFARCT , AGE UNDETERMINED ABNORMAL ECG WHEN COMPARED WITH ECG OF 01-MAR-2016 08:32, VENT. RATE HAS DECREASED BY 35 BPM SEPTAL INFARCT IS NOW PRESENT T WAVE INVERSION MORE EVIDENT IN ANTERIOR LEADS Confirmed by VAMSHI WALLACE MD ([id number]) on 05/02/2016 4:32:51 PM Referred By: Confirmed By:VAMSHI WALLACE MD
[2016-05-02] MEDS: INSULIN SLIDING SCALE (NOVOLOG) 1 VIAL SQ SCH ×2 (17:15→22:26)
[2016-05-03] MEDS: PIPERACILLIN/TAZOB 2.25 GM 50 ML IVPB SCH (01:57)
[2016-05-03] MEDS ORDERED: PT OWN MED DRAWER 7, Y5N ONE (06:04)
[2016-05-03 06:10] LABS: MCH 29.1 pg (25.7-33.7); PLATELET COUNT 128 K/MM3 (134-434); WHITE BLOOD COUNT 4.4 K/mm3 (4.0-10.0)
[2016-05-03] MEDS: sitaGLIPtin PHOSPHATE 25 MG TABLET (FP) PO SCH (06:26)
[2016-05-03] MEDS: INSULIN SLIDING SCALE (NOVOLOG) 1 VIAL SQ SCH ×4 (06:31→21:04)
[2016-05-03 06:37] LABS: ALBUMIN 2.2 g/dl (3.4-5.0); CALCIUM 7.9 mg/dL (8.5-10.1); CREATININE 3.7 mg/dL (0.55-1.02)
[2016-05-03 06:47] LABS: BILIRUBIN,TOTAL 0.3 mg/dL (0.2-1.0); FREE T4 0.91 ng/dl (0.76-1.46); THYROID STIMULATING HORMONE 8.65 uIU/ml (0.358-3.74); TOT PROT 7.2 g/dl (6.4-8.2)
--- NOTE | 2016-05-03 07:34 | PN ---
Progress Note (short form) - Note Progress Note: pt seen/ examined / chart reviewed feels comfortable denies pain. afebrile Vital Signs Temp 95 F L 05/03/16 06:00 Pulse 58 L 05/03/16 06:00 Resp 26 H 05/03/16 06:00 BP 112/78 05/03/16 06:00 Pulse Ox 97 05/02/16 21:00 Intake & Output 05/02/16 05/02/16 05/03/16 11:59 23:59 11:59 Intake Total 50 1000 170 Output Total 300 2100 400 Balance -250 -1100 -230 Weight 153 lb 152 lb 3.2 oz Intake: IVPB 50 50 Oral 50 600 120 Packed Cells 350 Output: Urine 300 2100 400 Guerrero 300 2100 400 Other: Voiding Method Diaper Diaper Bowel Movement Yes Yes No # Bowel Movements 1 3 Weight Measurement Method Built in Bedscale Built in Bedscale Active Medications Calcium Acetate (Phoslo -) 667 mg PO TIDCM [facility] Last Admin: 05/02/16 17:18 Dose: 667 mg Dronabinol (Marinol -) 5 mg PO DAILY [facility] Last Admin: 05/02/16 11:41 Dose: 5 mg Heparin Sodium (Porcine) (Heparin -) 5,000 unit SQ BID [facility] Last Admin: 05/02/16 21:37 Dose: 5,000 unit Piperacillin Sod/Tazobactam Sod (Zosyn 2.25gm Ivpb (Pre-Docked)) 50 mls @ 100 mls/hr IVPB Q8H-IV [facility] Last Admin: 05/03/16 01:57 Dose: 100 mls/hr Insulin Aspart (Novolog Vial Sliding Scale -) 1 vial SQ ACHS [facility] PRN Reason: Protocol Last Admin: 05/03/16 06:31 Dose: Not Given Oxycodone HCl (Roxicodone -) 5 mg PO Q6H PRN PRN Reason: BACK PAIN Pantoprazole Sodium (Protonix -) 40 mg PO DAILY [facility] Last Admin: 05/02/16 10:20 Dose: 40 mg Polyethylene Glycol (Miralax (For Daily Use) -) 17 gm PO DAILY [facility] Last Admin: 05/02/16 10:22 Dose: 17 grams Tamoxifen Citrate (Tamoxifen Citrate) 20 mg PO DAILY [facility] Last Admin: 05/02/16 10:15 Dose: 20 mg CBC, BMP 05/03/16 05:15 05/03/16 05:15 Microbiology 05/01/16 23:10 Blood Culture - Preliminary Blood - Peripheral Venous NO GROWTH OBTAINED AFTER 24 HOURS, INCUBATION TO CONTINUE FOR 4 DAYS. 05/01/16 23:10 Blood Culture - Preliminary Blood - Peripheral Venous NO GROWTH OBTAINED AFTER 24 HOURS, INCUBATION TO CONTINUE FOR 4 DAYS. Physical Examination Constitutional: Yes:No Distress Cardiovascular: Yes: Regular Rate and Rhythm Respiratory: Yes: Diminished at bases . Gastrointestinal: Yes: Normal Bowel Sounds, Soft, Other (edema of the abdominal wall). No: Distention, Tenderness Edema: Yes (proximal edema) Psychiatric: Yes: Alert, Oriented Guerrero + Imaging - Results Chest X-ray: Image Reviewed (bilateral congestive changes) EKG: Image Reviewed Problem List - Problems (1) CHF (congestive heart failure) Code(s): I50.9 - HEART FAILURE, UNSPECIFIED (2) Chronic diastolic CHF (congestive heart failure) Code(s): I50.32 - CHRONIC DIASTOLIC (CONGESTIVE) HEART FAILURE (3) DM II (diabetes mellitus, type II), controlled Code(s): E11.9 - TYPE 2 DIABETES MELLITUS WITHOUT COMPLICATIONS Qualifiers: Diabetes mellitus complication status: with neurologic complications Diabetes mellitus complication detail: with autonomic neuropathy (4) Edema Code(s): R60.9 - EDEMA, UNSPECIFIED (5) HLD (hyperlipidemia) Code(s): E78.5 - HYPERLIPIDEMIA, UNSPECIFIED (6) UTI (urinary tract infection) Code(s): N39.0 - URINARY TRACT INFECTION, SITE NOT SPECIFIED Qualifiers: Urinary tract infection type: acute cystitis (7) Hypotension Code(s): I95.9 - HYPOTENSION, UNSPECIFIED Qualifiers: Hypotension type: other hypotension type Qualified Code(s): I95.89 - Other hypotension Assessment/Plan Overall better continue present care meds reviewed monitor lytes d/c januvia and monitor bgm may transfer to floor will follow Problem List - Problems (1) Breast cancer metastasized to bone Code(s): C50.919 - MALIGNANT NEOPLASM OF UNSP SITE OF UNSPECIFIED FEMALE BREAST C79.51 - SECONDARY MALIGNANT NEOPLASM OF BONE
[2016-05-03] MEDS: CALCIUM ACETATE 667 MG CAPSULE (FP) PO SCH ×3 (08:12→17:51)
--- NOTE | 2016-05-03 09:46 | PN ---
Progress Note, Physician Chief Complaint: no distress alert TELE: NSR - Current Medication List Current Medications: Active Medications Calcium Acetate (Phoslo -) 667 mg PO TIDCM [facility] Last Admin: 05/03/16 08:12 Dose: 667 mg Dronabinol (Marinol -) 5 mg PO DAILY [facility] Last Admin: 05/02/16 11:41 Dose: 5 mg Heparin Sodium (Porcine) (Heparin -) 5,000 unit SQ BID [facility] Last Admin: 05/02/16 21:37 Dose: 5,000 unit Piperacillin Sod/Tazobactam Sod (Zosyn 2.25gm Ivpb (Pre-Docked)) 50 mls @ 100 mls/hr IVPB Q8H-IV [facility] Last Admin: 05/03/16 01:57 Dose: 100 mls/hr Insulin Aspart (Novolog Vial Sliding Scale -) 1 vial SQ ACHS [facility] PRN Reason: Protocol Last Admin: 05/03/16 06:31 Dose: Not Given Oxycodone HCl (Roxicodone -) 5 mg PO Q6H PRN PRN Reason: BACK PAIN Pantoprazole Sodium (Protonix -) 40 mg PO DAILY [facility] Last Admin: 05/02/16 10:20 Dose: 40 mg Polyethylene Glycol (Miralax (For Daily Use) -) 17 gm PO DAILY [facility] Last Admin: 05/02/16 10:22 Dose: 17 grams Tamoxifen Citrate (Tamoxifen Citrate) 20 mg PO DAILY [facility] Last Admin: 05/02/16 10:15 Dose: 20 mg - Objective Vital Signs: Vital Signs Temperature 95 F L 05/03/16 06:00 Pulse Rate 60 05/03/16 08:00 Respiratory Rate 24 05/03/16 08:00 Blood Pressure 115/71 05/03/16 08:00 O2 Sat by Pulse Oximetry (%) 97 05/02/16 21:00 Constitutional: Yes: Calm Eyes: Yes: Conjunctiva Clear Cardiovascular: Yes: Regular Rate and Rhythm Respiratory: Yes: Other (clear anteriorly and laterally) Gastrointestinal: Yes: Soft Edema: No Neurological: Yes: Alert Labs: CBC, BMP 05/03/16 05:15 05/03/16 05:15 INR, PTT INR 1.20 (0.82-1.09) H 05/01/16 15:05 - ....Imaging EKG: Image Reviewed Assessment/Plan Assessment/Plan 76 year old woman with a history of HTN, chronic diastolic chf, CKD, JOSUÉ h/o stents, DMII, breast Ca with mets admitted with sob, lethargy, b/l LE swelling, hypotension. SOB-likely multifactorial including acute on chronic diastolic CHF -improved after diuresis -LE edema appears chronic and actually appears improved based on wrinkling of skin -monitor I/Os and daily weights -Diurese PRN -monitor bun/creat/electrolytes closely -echo from 12/2015 showed normal LV and RV function, Impaired relaxation, mild MR , mild to mod TR, small pericardial effusion -repeat echo w/ mild reduction RV function and sig TR w/ Mild PHTN -Doubt PE- will check LE venous duplex HTN-hypotensive on admission and running lowish baseline BPs now -hold anti-HTN meds for now
[2016-05-03] MEDS: TAMOXIFEN CITRATE 10 MG TABLET PO SCH (10:00)
[2016-05-03] MEDS: PANTOPRAZOLE 40 MG TABLET (FP) PO SCH (10:00)
[2016-05-03] MEDS: POLYETHYLENE GLYCOL 3350 119 GM BTL PO SCH (10:00)
[2016-05-03] MEDS: DRONABINOL 2.5 MG CAPSULE PO SCH (10:00)
[2016-05-03] MEDS: HEPARIN NA (PORCINE) 5,000 UNITS/ML 1ML VIAL SQ SCH ×2 (11:49→21:02)
--- NOTE | 2016-05-03 11:50 | PN ---
Progress Note, Physician History of Present Illness: patient seen and examined no issues remains hypothermic asymptomatic feels well no complaints - Current Medication List Current Medications: Active Medications Calcium Acetate (Phoslo -) 667 mg PO TIDCM [facility] Last Admin: 05/03/16 08:12 Dose: 667 mg Dronabinol (Marinol -) 5 mg PO DAILY [facility] Last Admin: 05/02/16 11:41 Dose: 5 mg Heparin Sodium (Porcine) (Heparin -) 5,000 unit SQ BID [facility] Last Admin: 05/02/16 21:37 Dose: 5,000 unit Ceftriaxone Sodium 1 gm/ (Dextrose) 50 mls @ 100 mls/hr IVPB DAILY [facility] Insulin Aspart (Novolog Vial Sliding Scale -) 1 vial SQ ACHS [facility] PRN Reason: Protocol Last Admin: 05/03/16 06:31 Dose: Not Given Oxycodone HCl (Roxicodone -) 5 mg PO Q6H PRN PRN Reason: BACK PAIN Pantoprazole Sodium (Protonix -) 40 mg PO DAILY [facility] Last Admin: 05/02/16 10:20 Dose: 40 mg Polyethylene Glycol (Miralax (For Daily Use) -) 17 gm PO DAILY [facility] Last Admin: 05/02/16 10:22 Dose: 17 grams Tamoxifen Citrate (Tamoxifen Citrate) 20 mg PO DAILY [facility] Last Admin: 05/02/16 10:15 Dose: 20 mg - Objective Vital Signs: Vital Signs Temperature 95 F L 05/03/16 06:00 Pulse Rate 64 05/03/16 10:17 Respiratory Rate 24 05/03/16 10:17 Blood Pressure 97/51 05/03/16 10:17 O2 Sat by Pulse Oximetry (%) 97 05/02/16 21:00 Constitutional: Yes: Cachectic Eyes: Yes: WNL HENT: Yes: Atraumatic Neck: Yes: Supple Cardiovascular: Yes: Regular Rate and Rhythm, S1, S2 Respiratory: Yes: Other fine crackles bilateral crackles Gastrointestinal: Yes: Soft Edema: Yes Edema: trace non pitting edema Labs: CBC, BMP 05/03/16 05:15 05/03/16 05:15 INR, PTT INR 1.20 (0.82-1.09) H 05/01/16 15:05 Assessment/Plan 76F with multiple medical probelms transsferred to ICU for hypothermia and hypotension Hypothermia/Hypotension: the cause is likely a component of sepsis. likely has a PNA with a RLL infiltrate on CXR with a UTI will stop zosyn start ceftriaxone Hypotension resolved patient is also anemia and will require 1 unit PRBCs bentley for I/O Stop lasix will diurese PRN Repeat CXR Cultures negative so far TFTs reviewed will do ECHO diastolic CHF: Echo reviewed hold lasix and observe repeat CXR Breast CA with metastasis: Outpt follow up with heme/onco no further treatment warranted per heme/onc palliative consult appreciated CKD: nephrology consult appreciated trend Cr renally dose all meds hold lasix per nephrology and observe off dieuresis DM: fingersticks ACHS ISS stop sitagliptin Diabetic diet FEN: no IVF no electrolyte issues on diet PPx: HSQ PO protonix PT consult transfer to floor
--- NOTE | 2016-05-03 12:03 | PN ---
Teaching Attending Note Name of Resident: Timothy Esquivel ATTENDING PHYSICIAN STATEMENT I saw and evaluated the patient. I reviewed the resident's note and discussed the case with the resident. I agree with the resident's findings and plan as documented. SUBJECTIVE: Patient seen and examined in the ICU. Awake and alert. Denies CP or SOB. Minimal dry cough. Intake & Output 04/30/16 05/01/16 05/02/16 05/03/16 23:59 23:59 23:59 23:59 Intake Total 250 1050 170 Output Total 2400 400 Balance 250 -1350 -230 Weight 151 lb 153 lb 152 lb 3.2 oz Last Vital Signs Temp Pulse Resp BP Pulse Ox 95 F L 64 24 97/51 97 05/03/16 06:00 05/03/16 10:17 05/03/16 10:17 05/03/16 10:17 05/02/16 21:00 Active Medications Calcium Acetate (Phoslo -) 667 mg PO TIDCM [facility] Last Admin: 05/03/16 11:47 Dose: 667 mg Dronabinol (Marinol -) 5 mg PO DAILY [facility] Last Admin: 05/03/16 10:00 Dose: 5 mg Heparin Sodium (Porcine) (Heparin -) 5,000 unit SQ BID [facility] Last Admin: 05/03/16 11:49 Dose: 5,000 unit Ceftriaxone Sodium (Rocephin 1gm Ivpb (Pre-Docked)) 50 mls @ 100 mls/hr IVPB DAILY [facility] Insulin Aspart (Novolog Vial Sliding Scale -) 1 vial SQ ACHS [facility] PRN Reason: Protocol Last Admin: 05/03/16 11:50 Dose: Not Given Oxycodone HCl (Roxicodone -) 5 mg PO Q6H PRN PRN Reason: BACK PAIN Pantoprazole Sodium (Protonix -) 40 mg PO DAILY [facility] Last Admin: 05/03/16 10:00 Dose: 40 mg Polyethylene Glycol (Miralax (For Daily Use) -) 17 gm PO DAILY [facility] Last Admin: 05/03/16 10:00 Dose: 17 grams Tamoxifen Citrate (Tamoxifen Citrate) 20 mg PO DAILY [facility] Last Admin: 05/03/16 10:00 Dose: 20 mg Constitutional: Yes: Awake and alert Eyes: Yes: PERRL Cardiovascular: Yes: Regular Rate and Rhythm, S1, S2 Respiratory: Yes: Few bibasilar rhonchi Gastrointestinal: Yes: Normal Bowel Sounds, Soft Edema: LLE: 4+, RLE: 4+ Neurological: Yes: Alert, Oriented Psychiatric: Yes: Alert, Oriented Labs: Laboratory Results - last 24 hr 05/02/16 05/02/16 05/02/16 12:40 17:06 22:25 WBC RBC Hgb Hct MCV MCHC RDW Plt Count MPV Sodium Potassium Chloride Carbon Dioxide Anion Gap BUN Creatinine Creat Clearance w eGFR POC Glucometer 109.46301 163.45700 Random Glucose Calcium Total Bilirubin AST ALT Alkaline Phosphatase Total Protein Albumin TSH Free T4 Blood Type O POSITIVE Antibody Screen Negative Crossmatch See Detail 05/03/16 05/03/16 05/03/16 05:15 05:15 06:28 WBC 4.4 RBC 3.13 L D Hgb 9.1 L D Hct 28.5 L D MCV 91.0 MCHC 32.0 RDW 18.0 H Plt Count 128 L MPV 10.0 Sodium 143 Potassium 4.5 Chloride 111 H Carbon Dioxide 24 Anion Gap 8 BUN 85 H Creatinine 3.7 H Creat Clearance w eGFR 11.94 POC Glucometer 82.00021 Random Glucose 64 L Calcium 7.9 L Total Bilirubin 0.3 D AST 37 ALT 21 Alkaline Phosphatase 155 H Total Protein 7.2 Albumin 2.2 L TSH 8.65 H Free T4 0.91 Blood Type Antibody Screen Crossmatch 05/03/16 11:44 WBC RBC Hgb Hct MCV MCHC RDW Plt Count MPV Sodium Potassium Chloride Carbon Dioxide Anion Gap BUN Creatinine Creat Clearance w eGFR POC Glucometer 95.52516 Random Glucose Calcium Total Bilirubin AST ALT Alkaline Phosphatase Total Protein Albumin TSH Free T4 Blood Type Antibody Screen Crossmatch Problem List - Problems (1) CHF (congestive heart failure) Code(s): I50.9 - HEART FAILURE, UNSPECIFIED (2) Breast cancer Code(s): C50.919 - MALIGNANT NEOPLASM OF UNSP SITE OF UNSPECIFIED FEMALE BREAST (3) Kidney failure Code(s): N19 - UNSPECIFIED KIDNEY FAILURE (4) UTI (urinary tract infection) Code(s): N39.0 - URINARY TRACT INFECTION, SITE NOT SPECIFIED Assessment/Plan -O2 to maintain saturation -lasix for O>I -Strict I&O's -renal dose medications -ABX -SQ heparin Dr Wallace CCTime 35"
[2016-05-03] MEDS: CEFTRIAXONE 50 ML IVPB SCH (12:15)
--- NOTE | 2016-05-03 13:09 | PN ---
Progress Note (short form) - Note Progress Note: Renal Follow up for SUSY/CKD/Volume Overload Pt seen and examined in the ICU awake and alert feels better on NC O2 Denies any chest pain on IV lasix Guerrero in place Vital Signs Temperature 95 F L 05/03/16 06:00 Pulse Rate 64 05/03/16 10:17 Respiratory Rate 24 05/03/16 10:17 Blood Pressure 97/51 05/03/16 10:17 O2 Sat by Pulse Oximetry (%) 97 05/02/16 21:00 Intake & Output 04/30/16 05/01/16 05/02/16 05/03/16 23:59 23:59 23:59 23:59 Intake Total 250 1050 170 Output Total 2400 400 Balance 250 -1350 -230 Weight 151 lb 153 lb 152 lb 3.2 oz Gen: NAD, awake and alert HEENT: NC/AT, MMM, CVS: RRR, No M/R Lungs: + rales b/l lung ascencio Abd: soft NT/ND Ext: 2+ edema in B/L LE Neuro: Awake and alert CBC, BMP 05/03/16 05:15 05/03/16 05:15 Laboratory Tests 05/01/16 05/02/16 05/03/16 15:05 05:20 05:15 BUN 85 H D 83 H 85 H Creatinine 3.4 H 3.6 H 3.7 H Laboratory Tests 05/03/16 05:15 Calcium 7.9 L Albumin 2.2 L Current Medications Calcium Acetate (Phoslo -) 667 mg PO TIDCM [facility] Last Admin: 05/03/16 11:47 Dose: 667 mg Dronabinol (Marinol -) 5 mg PO DAILY [facility] Last Admin: 05/03/16 10:00 Dose: 5 mg Heparin Sodium (Porcine) (Heparin -) 5,000 unit SQ BID [facility] Last Admin: 05/03/16 11:49 Dose: 5,000 unit Ceftriaxone Sodium (Rocephin 1gm Ivpb (Pre-Docked)) 50 mls @ 100 mls/hr IVPB DAILY [facility] Last Admin: 05/03/16 12:15 Dose: 100 mls/hr Insulin Aspart (Novolog Vial Sliding Scale -) 1 vial SQ ACHS [facility] PRN Reason: Protocol Last Admin: 05/03/16 11:50 Dose: Not Given Oxycodone HCl (Roxicodone -) 5 mg PO Q6H PRN PRN Reason: BACK PAIN Pantoprazole Sodium (Protonix -) 40 mg PO DAILY [facility] Last Admin: 05/03/16 10:00 Dose: 40 mg Polyethylene Glycol (Miralax (For Daily Use) -) 17 gm PO DAILY [facility] Last Admin: 05/03/16 10:00 Dose: 17 grams Tamoxifen Citrate (Tamoxifen Citrate) 20 mg PO DAILY [facility] Last Admin: 05/03/16 10:00 Dose: 20 mg A/p 76 year odl Woman with Breast Ca, Hypertension, CHF (right heart), DM, CKD with recent SUSY from Left Hydronephrosis presented with sob, worsening LE edema and found to have acute HF. #Acute on chronic Renal Insufficiency Cr was 3.1 on discharge and now 3.7 with IV diuretics worsening renal function could be secondary to renal hypoperfusion in setting of HF Renal US reviewed no Hydroneophrosis noted Check FeNa, UPCR, FeUrea Start Lasix 40mg IVP BID Goal is to achieve evolemia Would trend BUN/Cr and electrolytes Trend daily weights Pt and family do not want to pursue dialysis No acute indication for MOCCASIN SEWER given pt is responsive to diuretics and there is no hyperkalmeia, acidosis or uremia Dose all meds for Cr Cl ~10 Avoid Rocio/ARB and nephrotoxins #Acute CHF Continue diuretics Case discussed with cardiology EHO reviewed #Breast Ca Continue Tamoxifen as per Oncology #Possible PNA on CXR continue Ceftrixaone f/u cultures #Anemia s/p PRBC transfusion 05/02/2015 Thank you Will follow Cade Altamirano DO 76 year old woman with a history of HTN, chronic diastolic chf, CKD, JOSUÉ h/o stents, DMII, breast Ca with mets admitted with sob, lethargy, b/l LE swelling, hypotension.
[2016-05-03] MEDS: FUROSEMIDE 40 MG/4 ML INJECTABLE VIAL IVPUSH SCH (13:47)
--- NOTE | 2016-05-03 16:06 | PN ---
Progress Note (short form) - Note Progress Note: Patient seen and examined 76 year old with multiple co-morbid medical problems. Presented with hypotension , fluid overload, SUSY/CKD. History of metastatic breast ca previously treated with arimidex, Faslodex, xeloda, gemzar, taxol and most recetly tamoxifen. Currently, continues to show signs of progressive disease. Can continue to maintain Tamoxifen despite its estrogenic effect as long as heparin is maintained. Current issues of CHF, fluid overload, infection, CKD/SUSY being addressed in ICU. Will follow
--- NOTE | 2016-05-03 17:30 | CONS ---
DATE OF CONSULTATION: DATE OF DICTATION: 05/03/2016 HISTORY OF PRESENT ILLNESS: This is a 76-year-old female with a history of multiple medical problems. Patient has a history of hypertension, chronic diastolic CHF, chronic kidney disease with an acute exacerbation, renal artery stenosis stenting, type 2 diabetes and breast CA. Patient presented with hypotension, lower extremity edema, shortness of breath. Patient has congestive changes on x-ray. PAST HISTORY: Has included aforementioned coronary artery disease, CHF, hypertension, hyperlipidemia. Also history of small bowel obstruction with serosal metastases. History of chronic kidney injury with acute kidney injury. History of surgery on right hip for metastases. History of chest wall metastases. Patient has been treated previously with Arimidex, Faslodex, Taxol, Gemzar, Xeloda, and most recently tamoxifen. Despite this, she has progressive metastatic breast carcinoma. She has chest wall involvement. MEDICATION: Medicines on admission included amlodipine, atenolol, Marinol, calcium, Lasix, oxycodone, Protonix, Miralax, Januvia, in addition to tamoxifen. REVIEW OF SYSTEMS: Patient denies headaches. Has been tired, weak. Has been short of breath. No chest pain. No fevers. No sweats. No night sweats. No dysuria. No hematuria. No back or bone pain. Chest wall changes. Weak, fatigued. No excessive bleeding, adenopathy. CURRENT PHYSICAL EXAMINATION: Vital signs: Blood pressure 97/51, pulse 64, respirations 24, afebrile. HEENT: VIKKI, EOM intact. Oropharynx no pharyngitis, mucositis, stomatitis, papillated tongue. Neck: Nodularity in his left supraclavicular fossa. No other cervical or supraclavicular nodes. No axillary nodes on the left. Chest: The right chest wall involved with large cutaneous tumor, right upper anterior chest, right breast going into the right axilla. Lungs: With diffuse rhonchi, wheezes anteriorly and posteriorly. Cardiac: Regular rhythm. Systolic murmur. Breast: Left breast, no dominant masses. Right breast, masses cutaneously as described. Abdomen: No organomegaly or masses. Extremities: Lower extremity edema bilaterally. Guerrero catheter. LABORATORY: 143 sodium, potassium 4.5, chloride 111, CO2 of 24, BUN 85, creatinine 3.7. O2 37, PT 21, alkaline phosphatase 155, albumin 2.2, TSH 8.65. WBC 4.4, hematocrit 28, platelets 128,000. CHF, large heart, possible left basal infiltrate with atelectasis. IMPRESSION: Multiple comorbid medical problems including metastatic breast carcinoma. Previously treated with hormonal therapy, aromatase inhibitors, Arimidex, Faslodex. Previously treated with Xeloda, Gemzar, and Taxol. Now tamoxifen therapy with progressive disease. Chest wall and axillary involvement. Chronic and acute kidney disease, history of hypertension, presented with hypotension. History of diabetes. History of renal artery stenosis with stenting, history of hyperlipidemia. Current management towards treatment of congestive heart failure, fluid overload state, chronic renal insufficiency and possible infiltration. Would agree, would continue tamoxifen as long as heparin prophylaxis for DVT can be administered. Thanking you. OCTAVIO GOLD M.D. SILVIA/[id number]
[2016-05-03] MEDS ORDERED: INSULIN (NOVOLOG) ASPART 100 UNITS/ML 10ML VIAL ONE (20:32)
[2016-05-04] MEDS: FUROSEMIDE 40 MG/4 ML INJECTABLE VIAL IVPUSH SCH ×2 (06:53→14:21)
[2016-05-04] MEDS: INSULIN SLIDING SCALE (NOVOLOG) 1 VIAL SQ SCH ×4 (06:53→22:08)
[2016-05-04] MEDS ORDERED: INSULIN (NOVOLOG) ASPART 100 UNITS/ML 10ML VIAL ONE (08:13)
[2016-05-04] MEDS ORDERED: INSULIN DETEMIR 100 UNITS/ML MDV SQ ONE (08:13)
[2016-05-04] MEDS: CALCIUM ACETATE 667 MG CAPSULE (FP) PO SCH ×3 (09:17→17:54)
[2016-05-04 09:20] LABS: BASOPHIL 0.4 % (0-2.0); EOSINOPHIL 1.3 % (0-4.5); MCH 30.1 pg (25.7-33.7); MCHC 32.7 g/dl (32.0-36.0); MEAN CELL VOLUME 92.3 fl (80-96); MEAN PLT VOLUME 9.7 fl (7.5-11.1); PLATELET COUNT 115 K/MM3 (134-434); RDW 17.7 % (11.6-15.6); WHITE BLOOD COUNT 5.2 K/mm3 (4.0-10.0)
[2016-05-04] MEDS ORDERED: PT OWN MED DRAWER 7, Y5N ONE (09:47)
[2016-05-04] MEDS: HEPARIN NA (PORCINE) 5,000 UNITS/ML 1ML VIAL SQ SCH ×2 (09:53→22:11)
[2016-05-04] MEDS: POLYETHYLENE GLYCOL 3350 119 GM BTL PO SCH (09:55)
[2016-05-04] MEDS: DRONABINOL 2.5 MG CAPSULE PO SCH (09:55)
[2016-05-04] MEDS: TAMOXIFEN CITRATE 10 MG TABLET PO SCH (09:56)
[2016-05-04] MEDS: CEFTRIAXONE 50 ML IVPB SCH (09:56)
[2016-05-04] MEDS: PANTOPRAZOLE 40 MG TABLET (FP) PO SCH (09:56)
[2016-05-04 09:59] LABS: ALBUMIN 2.2 g/dl (3.4-5.0)
[2016-05-04 10:02] LABS: BILIRUBIN,TOTAL 0.3 mg/dL (0.2-1.0); CALCIUM 8.4 mg/dL (8.5-10.1); MAGNESIUM 2.5 mg/dL (1.8-2.4); PHOSPHOROUS 5.1 mg/dL (2.5-4.9); TOT PROT 6.8 g/dl (6.4-8.2)
--- NOTE | 2016-05-04 10:07 | PN ---
Progress Note, Physician - Current Medication List Current Medications: Active Medications Calcium Acetate (Phoslo -) 667 mg PO TIDCM [facility] Last Admin: 05/04/16 09:17 Dose: 667 mg Dronabinol (Marinol -) 5 mg PO DAILY [facility] Last Admin: 05/04/16 09:55 Dose: 5 mg Furosemide (Lasix Injection -) 40 mg IVPUSH BID@0600,1400 [facility] Last Admin: 05/04/16 06:53 Dose: 40 mg Heparin Sodium (Porcine) (Heparin -) 5,000 unit SQ BID [facility] [place] Last Admin: 05/04/16 09:53 Dose: 5,000 unit Ceftriaxone Sodium (Rocephin 1gm Ivpb (Pre-Docked)) 50 mls @ 100 mls/hr IVPB DAILY [facility] [place] Last Admin: 05/04/16 09:56 Dose: 100 mls/hr Insulin Aspart (Novolog Vial Sliding Scale -) 1 vial SQ ACHS [facility] PRN Reason: Protocol Last Admin: 05/04/16 06:53 Dose: Not Given Oxycodone HCl (Roxicodone -) 5 mg PO Q6H PRN PRN Reason: BACK PAIN Pantoprazole Sodium (Protonix -) 40 mg PO DAILY [facility] Last Admin: 05/04/16 09:56 Dose: 40 mg Polyethylene Glycol (Miralax (For Daily Use) -) 17 gm PO DAILY [facility] Last Admin: 05/04/16 09:55 Dose: 17 grams Tamoxifen Citrate (Tamoxifen Citrate) 20 mg PO DAILY [facility] Last Admin: 05/04/16 09:56 Dose: 20 mg - Objective Vital Signs: Vital Signs Temperature 97.2 F L 05/04/16 06:00 Pulse Rate 60 05/04/16 06:00 Respiratory Rate 20 05/04/16 06:00 Blood Pressure 124/56 05/04/16 06:00 O2 Sat by Pulse Oximetry (%) 94 L 05/03/16 21:00 Eyes: Yes: WNL, Conjunctiva Clear, EOM Intact HENT: Yes: WNL, Atraumatic, Normocephalic Neck: Yes: WNL, Supple, Trachea Midline Cardiovascular: Yes: WNL, Regular Rate and Rhythm Respiratory: Yes: WNL, Regular, CTA Bilaterally Gastrointestinal: Yes: WNL, Normal Bowel Sounds Genitourinary: Yes: WNL Musculoskeletal: Yes: WNL Extremities: Yes: WNL Edema: No Integumentary: Yes: WNL Neurological: Yes: WNL, Alert, Oriented ...Motor Strength: WNL Psychiatric: Yes: WNL Labs: CBC, BMP 05/04/16 07:00 INR, PTT INR 1.20 (0.82-1.09) H 05/01/16 15:05 Assessment/Plan 76 year old woman with a history of HTN, chronic diastolic chf, CKD, JOSUÉ h/o stents, DMII, breast Ca with mets admitted with sob, lethargy, b/l LE swelling, hypotension. SOB-likely multifactorial including acute on chronic diastolic CHF -improved after diuresis -LE edema appears chronic and actually appears improved based on wrinkling of skin -monitor I/Os and daily weights -Diurese PRN -monitor bun/creat/electrolytes closely -echo from 12/2015 showed normal LV and RV function, Impaired relaxation, mild MR , mild to mod TR, small pericardial effusion -repeat echo w/ mild reduction RV function and sig TR w/ Mild PHTN -Doubt PE- will check LE venous duplex HTN-hypotensive on admission and running lowish baseline BPs now -hold anti-HTN meds for now
--- NOTE | 2016-05-04 11:57 | PN ---
Progress Note, Physician History of Present Illness: PULMONARY ALERT,FEELING BETTER, COMFORTABLE,NAD - Current Medication List Current Medications: Active Medications Calcium Acetate (Phoslo -) 667 mg PO TIDCM [facility] Last Admin: 05/04/16 09:17 Dose: 667 mg Dronabinol (Marinol -) 5 mg PO DAILY [facility] Last Admin: 05/04/16 09:55 Dose: 5 mg Furosemide (Lasix Injection -) 40 mg IVPUSH BID@0600,1400 [facility] Last Admin: 05/04/16 06:53 Dose: 40 mg Heparin Sodium (Porcine) (Heparin -) 5,000 unit SQ BID [facility] Last Admin: 05/04/16 09:53 Dose: 5,000 unit Ceftriaxone Sodium (Rocephin 1gm Ivpb (Pre-Docked)) 50 mls @ 100 mls/hr IVPB DAILY [facility] Last Admin: 05/04/16 09:56 Dose: 100 mls/hr Insulin Aspart (Novolog Vial Sliding Scale -) 1 vial SQ ACHS [facility] PRN Reason: Protocol Last Admin: 05/04/16 06:53 Dose: Not Given Oxycodone HCl (Roxicodone -) 5 mg PO Q6H PRN PRN Reason: BACK PAIN Pantoprazole Sodium (Protonix -) 40 mg PO DAILY [facility] Last Admin: 05/04/16 09:56 Dose: 40 mg Polyethylene Glycol (Miralax (For Daily Use) -) 17 gm PO DAILY [facility] Last Admin: 05/04/16 09:55 Dose: 17 grams Tamoxifen Citrate (Tamoxifen Citrate) 20 mg PO DAILY [facility] Last Admin: 05/04/16 09:56 Dose: 20 mg - Objective Vital Signs: Vital Signs Temperature 97.2 F L 05/04/16 06:00 Pulse Rate 60 05/04/16 06:00 Respiratory Rate 20 05/04/16 06:00 Blood Pressure 124/56 05/04/16 06:00 O2 Sat by Pulse Oximetry (%) 94 L 05/03/16 21:00 Constitutional: Yes: Calm, Thin Eyes: Yes: WNL HENT: Yes: WNL Neck: Yes: Supple (TRACH) Cardiovascular: Yes: Regular Rate and Rhythm, S1, S2 Respiratory: Yes: Rales (BIBASILAR RALES L>R) Gastrointestinal: Yes: Normal Bowel Sounds, Soft Extremities: Yes: WNL Edema: Yes Labs: CBC, BMP 05/04/16 07:00 05/04/16 07:00 INR, PTT INR 1.20 (0.82-1.09) H 05/01/16 15:05 Assessment/Plan moiz List - Problems (1) CHF (congestive heart failure) Code(s): I50.9 - HEART FAILURE, UNSPECIFIED (2) Breast cancer Code(s): C50.919 - MALIGNANT NEOPLASM OF UNSP SITE OF UNSPECIFIED FEMALE BREAST (3) Kidney failure Code(s): N19 - UNSPECIFIED KIDNEY FAILURE (4) UTI (urinary tract infection) Code(s): N39.0 - URINARY TRACT INFECTION, SITE NOT SPECIFIED Assessment/Plan -O2 -lasix -Strict I&O's -ABX - chest x-ray DR BLACKWOOD
--- NOTE | 2016-05-04 12:13 | PN ---
Progress Note, Physician - Current Medication List Current Medications: Active Medications Calcium Acetate (Phoslo -) 667 mg PO TIDCM [facility] Last Admin: 05/04/16 09:17 Dose: 667 mg Dronabinol (Marinol -) 5 mg PO DAILY [facility] Last Admin: 05/04/16 09:55 Dose: 5 mg Furosemide (Lasix Injection -) 40 mg IVPUSH BID@0600,1400 [facility] Last Admin: 05/04/16 06:53 Dose: 40 mg Heparin Sodium (Porcine) (Heparin -) 5,000 unit SQ BID [facility] Last Admin: 05/04/16 09:53 Dose: 5,000 unit Ceftriaxone Sodium (Rocephin 1gm Ivpb (Pre-Docked)) 50 mls @ 100 mls/hr IVPB DAILY [facility] Last Admin: 05/04/16 09:56 Dose: 100 mls/hr Insulin Aspart (Novolog Vial Sliding Scale -) 1 vial SQ ACHS [facility] PRN Reason: Protocol Last Admin: 05/04/16 06:53 Dose: Not Given Oxycodone HCl (Roxicodone -) 5 mg PO Q6H PRN PRN Reason: BACK PAIN Pantoprazole Sodium (Protonix -) 40 mg PO DAILY [facility] Last Admin: 05/04/16 09:56 Dose: 40 mg Polyethylene Glycol (Miralax (For Daily Use) -) 17 gm PO DAILY [facility] Last Admin: 05/04/16 09:55 Dose: 17 grams Tamoxifen Citrate (Tamoxifen Citrate) 20 mg PO DAILY [facility] Last Admin: 05/04/16 09:56 Dose: 20 mg - Objective Vital Signs: Vital Signs Temperature 97.2 F L 05/04/16 06:00 Pulse Rate 60 05/04/16 06:00 Respiratory Rate 20 05/04/16 06:00 Blood Pressure 124/56 05/04/16 06:00 O2 Sat by Pulse Oximetry (%) 94 L 05/03/16 21:00 Labs: CBC, BMP 05/04/16 07:00 05/04/16 07:00 INR, PTT INR 1.20 (0.82-1.09) H 05/01/16 15:05 <Briseyda Recinos - Last Filed: 05/04/16 12:13> - Current Medication List Current Medications: Active Medications Calcium Acetate (Phoslo -) 667 mg PO TIDCM [facility] Last Admin: 05/04/16 09:17 Dose: 667 mg Dronabinol (Marinol -) 5 mg PO DAILY [facility] Last Admin: 05/04/16 09:55 Dose: 5 mg Furosemide (Lasix Injection -) 40 mg IVPUSH BID@0600,1400 [facility] Last Admin: 05/04/16 06:53 Dose: 40 mg Heparin Sodium (Porcine) (Heparin -) 5,000 unit SQ BID [facility] Last Admin: 05/04/16 09:53 Dose: 5,000 unit Ceftriaxone Sodium (Rocephin 1gm Ivpb (Pre-Docked)) 50 mls @ 100 mls/hr IVPB DAILY [facility] Last Admin: 05/04/16 09:56 Dose: 100 mls/hr Insulin Aspart (Novolog Vial Sliding Scale -) 1 vial SQ ACHS [facility] PRN Reason: Protocol Last Admin: 05/04/16 12:21 Dose: Not Given Oxycodone HCl (Roxicodone -) 5 mg PO Q6H PRN PRN Reason: BACK PAIN Pantoprazole Sodium (Protonix -) 40 mg PO DAILY [facility] Last Admin: 05/04/16 09:56 Dose: 40 mg Polyethylene Glycol (Miralax (For Daily Use) -) 17 gm PO DAILY [facility] Last Admin: 05/04/16 09:55 Dose: 17 grams Tamoxifen Citrate (Tamoxifen Citrate) 20 mg PO DAILY [facility] Last Admin: 05/04/16 09:56 Dose: 20 mg - Objective Vital Signs: Vital Signs Temperature 97.2 F L 05/04/16 06:00 Pulse Rate 60 05/04/16 06:00 Respiratory Rate 20 05/04/16 06:00 Blood Pressure 124/56 05/04/16 06:00 O2 Sat by Pulse Oximetry (%) 94 L 05/03/16 21:00 Labs: CBC, BMP 05/04/16 07:00 05/04/16 07:00 INR, PTT INR 1.20 (0.82-1.09) H 05/01/16 15:05 <Meli Montoya - Last Filed: 05/04/16 12:23> Problem List - Problems (1) CHF (congestive heart failure) Code(s): I50.9 - HEART FAILURE, UNSPECIFIED (2) Chronic diastolic CHF (congestive heart failure) Code(s): I50.32 - CHRONIC DIASTOLIC (CONGESTIVE) HEART FAILURE (3) DM II (diabetes mellitus, type II), controlled Code(s): E11.9 - TYPE 2 DIABETES MELLITUS WITHOUT COMPLICATIONS (4) Edema Code(s): R60.9 - EDEMA, UNSPECIFIED (5) HLD (hyperlipidemia) Code(s): E78.5 - HYPERLIPIDEMIA, UNSPECIFIED (6) UTI (urinary tract infection) Code(s): N39.0 - URINARY TRACT INFECTION, SITE NOT SPECIFIED (7) Hypotension Code(s): I95.9 - HYPOTENSION, UNSPECIFIED <Briseyda Recinos - Last Filed: 05/04/16 12:13> - Problems (1) Chronic diastolic CHF (congestive heart failure) Code(s): I50.32 - CHRONIC DIASTOLIC (CONGESTIVE) HEART FAILURE (2) DM II (diabetes mellitus, type II), controlled Code(s): E11.9 - TYPE 2 DIABETES MELLITUS WITHOUT COMPLICATIONS Qualifiers: Diabetes mellitus complication status: with neurologic complications Diabetes mellitus complication detail: with autonomic neuropathy (3) Edema Code(s): R60.9 - EDEMA, UNSPECIFIED (4) HTN (hypertension) Code(s): I10 - ESSENTIAL (PRIMARY) HYPERTENSION Qualifiers: Hypertension type: renovascular hypertension Qualified Code(s): I15.0 - Renovascular hypertension (5) Anemia Code(s): D64.9 - ANEMIA, UNSPECIFIED Qualifiers: 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, drug-induced (6) Anemia due to chemotherapy Code(s): D64.81 - ANEMIA DUE TO ANTINEOPLASTIC CHEMOTHERAPY T45.1X5A - ADVERSE EFFECT OF ANTINEOPLASTIC AND IMMUNOSUP DRUGS, INIT (7) Breast cancer Code(s): C50.919 - MALIGNANT NEOPLASM OF UNSP SITE OF UNSPECIFIED FEMALE BREAST (8) Breast cancer metastasized to bone Code(s): C50.919 - MALIGNANT NEOPLASM OF UNSP SITE OF UNSPECIFIED FEMALE BREAST C79.51 - SECONDARY MALIGNANT NEOPLASM OF BONE (9) Dehydration Code(s): E86.0 - DEHYDRATION (10) Diabetes Code(s): E11.9 - TYPE 2 DIABETES MELLITUS WITHOUT COMPLICATIONS Qualifiers: Diabetes mellitus type: type 2 Diabetes mellitus complication status: with neurologic complications (11) Kidney failure Code(s): N19 - UNSPECIFIED KIDNEY FAILURE (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
--- NOTE | 2016-05-04 12:18 | PN ---
Progress Note, Physician History of Present Illness: Patient seen on her bed. Has h/o Type 2 DM, Hypertension, CHF, CKD, CA. Breast on Tamoxifen, Chronic LE edema ? Benous stasis. Has h/o antegrade ureteric stenting for unilateral Hydronephrosis. Renal sonogram shows no Hydronephrosis. Has good urine output. No urinary complaints Good appetite. slept well - Current Medication List Current Medications: Active Medications Calcium Acetate (Phoslo -) 667 mg PO TIDCM [facility] Last Admin: 05/04/16 09:17 Dose: 667 mg Dronabinol (Marinol -) 5 mg PO DAILY [facility] Last Admin: 05/04/16 09:55 Dose: 5 mg Furosemide (Lasix Injection -) 40 mg IVPUSH BID@0600,1400 [facility] Last Admin: 05/04/16 06:53 Dose: 40 mg Heparin Sodium (Porcine) (Heparin -) 5,000 unit SQ BID [facility] Last Admin: 05/04/16 09:53 Dose: 5,000 unit Ceftriaxone Sodium (Rocephin 1gm Ivpb (Pre-Docked)) 50 mls @ 100 mls/hr IVPB DAILY [facility] Last Admin: 05/04/16 09:56 Dose: 100 mls/hr Insulin Aspart (Novolog Vial Sliding Scale -) 1 vial SQ ACHS [facility] PRN Reason: Protocol Last Admin: 05/04/16 06:53 Dose: Not Given Oxycodone HCl (Roxicodone -) 5 mg PO Q6H PRN PRN Reason: BACK PAIN Pantoprazole Sodium (Protonix -) 40 mg PO DAILY [facility] Last Admin: 05/04/16 09:56 Dose: 40 mg Polyethylene Glycol (Miralax (For Daily Use) -) 17 gm PO DAILY [facility] Last Admin: 05/04/16 09:55 Dose: 17 grams Tamoxifen Citrate (Tamoxifen Citrate) 20 mg PO DAILY [facility] Last Admin: 05/04/16 09:56 Dose: 20 mg - Objective Vital Signs: Vital Signs Temperature 97.2 F L 05/04/16 06:00 Pulse Rate 60 05/04/16 06:00 Respiratory Rate 20 05/04/16 06:00 Blood Pressure 124/56 05/04/16 06:00 O2 Sat by Pulse Oximetry (%) 94 L 05/03/16 21:00 Constitutional: Yes: Well Nourished, No Distress, Calm Eyes: Yes: Conjunctiva Clear HENT: Yes: WNL Neck: Yes: WNL, Trachea Midline Cardiovascular: Yes: Regular Rate and Rhythm, S1, S2 Respiratory: Yes: CTA Bilaterally Gastrointestinal: Yes: Normal Bowel Sounds Edema: Yes Edema: LLE: 2+, RLE: 2+ Neurological: Yes: Alert, Oriented Labs: CBC, BMP 05/04/16 07:00 05/04/16 07:00 INR, PTT INR 1.20 (0.82-1.09) H 05/01/16 15:05 Problem List - Problems (1) Chronic diastolic CHF (congestive heart failure) Code(s): I50.32 - CHRONIC DIASTOLIC (CONGESTIVE) HEART FAILURE (2) DM II (diabetes mellitus, type II), controlled Code(s): E11.9 - TYPE 2 DIABETES MELLITUS WITHOUT COMPLICATIONS Qualifiers: Diabetes mellitus complication status: with neurologic complications Diabetes mellitus complication detail: with autonomic neuropathy (3) Edema Code(s): R60.9 - EDEMA, UNSPECIFIED (4) HTN (hypertension) Code(s): I10 - ESSENTIAL (PRIMARY) HYPERTENSION Qualifiers: Hypertension type: renovascular hypertension Qualified Code(s): I15.0 - Renovascular hypertension (5) Anemia Code(s): D64.9 - ANEMIA, UNSPECIFIED Qualifiers: 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, drug-induced (6) Anemia due to chemotherapy Code(s): D64.81 - ANEMIA DUE TO ANTINEOPLASTIC CHEMOTHERAPY T45.1X5A - ADVERSE EFFECT OF ANTINEOPLASTIC AND IMMUNOSUP DRUGS, INIT (7) Breast cancer Code(s): C50.919 - MALIGNANT NEOPLASM OF UNSP SITE OF UNSPECIFIED FEMALE BREAST (8) Breast cancer metastasized to bone Code(s): C50.919 - MALIGNANT NEOPLASM OF UNSP SITE OF UNSPECIFIED FEMALE BREAST C79.51 - SECONDARY MALIGNANT NEOPLASM OF BONE (9) Dehydration Code(s): E86.0 - DEHYDRATION (10) Diabetes Code(s): E11.9 - TYPE 2 DIABETES MELLITUS WITHOUT COMPLICATIONS Qualifiers: Diabetes mellitus type: type 2 Diabetes mellitus complication status: with neurologic complications (11) Kidney failure Code(s): N19 - UNSPECIFIED KIDNEY FAILURE (12) 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 renal functions seems to settle near her baseline. On loop diuretics for Congestive heart failure. On Ceftriaxone for Pneumonia. Received PRBC Transfusion for severe anemia Will follow with you. Meli Montoya MD
--- NOTE | 2016-05-04 12:40 | PN ---
Progress Note (short form) - Note Progress Note: Vital Signs - 24 hr Appetite ok no vomiting no nausea no SOB 05/03/16 05/03/16 05/03/16 14:00 16:43 17:56 Temperature 97.1 F L 97.3 F L Pulse Rate 62 59 L 64 Respiratory 26 H 22 20 Rate Blood Pressure 112/87 116/71 114/60 O2 Sat by Pulse 97 Oximetry (%) 05/03/16 05/03/16 05/04/16 21:00 22:56 06:00 Temperature 97.1 F L 97.2 F L Pulse Rate 60 60 Respiratory 18 20 Rate Blood Pressure 140/73 124/56 O2 Sat by Pulse 94 L Oximetry (%) Current Medications Generic Name Dose Route Start Last Admin Trade Name Rustyq PRN Reason Stop Dose Admin Calcium Acetate 667 mg 05/02/16 08:00 05/04/16 12:27 Phoslo - PO 667 mg TIDCM [facility] Administration Dronabinol 5 mg 05/02/16 10:00 05/04/16 09:55 Marinol - PO 5 mg DAILY [facility] Administration Furosemide 40 mg 05/03/16 14:00 05/04/16 06:53 Lasix Injection - IVPUSH 40 mg BID@0600,1400 [facility] Administration Heparin Sodium (Porcine) 5,000 unit 05/02/16 10:00 05/04/16 09:53 Heparin - SQ 5,000 unit BID [facility] Administration Ceftriaxone Sodium 50 mls @ 100 mls/hr 05/03/16 12:15 05/04/16 09:56 Rocephin 1gm Ivpb (Pre-Docked) IVPB 100 mls/hr DAILY [facility] Administration Insulin Aspart 1 vial 05/02/16 16:30 05/04/16 12:21 Novolog Vial Sliding Scale - SQ Not Given ACHS [facility] Protocol Oxycodone HCl 5 mg 05/02/16 04:59 Roxicodone - PO Q6H PRN BACK PAIN Pantoprazole Sodium 40 mg 05/02/16 10:00 05/04/16 09:56 Protonix - PO 40 mg DAILY [facility] Administration Polyethylene Glycol 17 gm 05/02/16 10:00 05/04/16 09:55 Miralax (For Daily Use) - PO 17 grams DAILY [facility] Administration Tamoxifen Citrate 20 mg 05/02/16 10:00 05/04/16 09:56 Tamoxifen Citrate PO 20 mg DAILY [facility] Administration Laboratory Results - last 24 hr 05/03/16 05/03/16 05/03/16 05:15 15:30 15:30 WBC RBC Hgb Hct MCV MCHC RDW Plt Count MPV Neutrophils % Lymphocytes % Monocytes % Eosinophils % Basophils % Sodium Potassium Chloride Carbon Dioxide Anion Gap BUN Creatinine Creat Clearance w eGFR POC Glucometer Random Glucose Calcium Phosphorus Magnesium Total Bilirubin AST ALT Alkaline Phosphatase Total Protein Albumin Free T3 1.8 L U Random Total Protein Ur Random Sodium 67 Ur Random Potassium 25.9 Ur Random Chloride 68 Ur Random Urea Nitrogn 400 Urine Creatinine 05/03/16 05/03/16 05/03/16 15:30 15:30 16:32 WBC RBC Hgb Hct MCV MCHC RDW Plt Count MPV Neutrophils % Lymphocytes % Monocytes % Eosinophils % Basophils % Sodium Potassium Chloride Carbon Dioxide Anion Gap BUN Creatinine Creat Clearance w eGFR POC Glucometer [id number] Random Glucose Calcium Phosphorus Magnesium Total Bilirubin AST ALT Alkaline Phosphatase Total Protein Albumin Free T3 U Random Total Protein 113 H Ur Random Sodium Ur Random Potassium Ur Random Chloride Ur Random Urea Nitrogn Urine Creatinine 38.2 05/03/16 05/04/16 05/04/16 21:01 07:00 07:00 WBC 5.2 RBC 2.93 L Hgb 8.8 L Hct 27.0 L MCV 92.3 MCHC 32.7 RDW 17.7 H Plt Count 115 L MPV 9.7 Neutrophils % 74.0 Lymphocytes % 13.6 Monocytes % 10.7 H Eosinophils % 1.3 Basophils % 0.4 Sodium 144 Potassium 4.4 Chloride 110 H Carbon Dioxide 26 Anion Gap 8 BUN 91 H Creatinine 4.0 H Creat Clearance w eGFR 10.92 POC Glucometer 101 Random Glucose 74 Calcium 8.4 L Phosphorus 5.1 H Magnesium 2.5 H Total Bilirubin 0.3 AST 36 ALT 16 D Alkaline Phosphatase 139 H Total Protein 6.8 Albumin 2.2 L Free T3 U Random Total Protein Ur Random Sodium Ur Random Potassium Ur Random Chloride Ur Random Urea Nitrogn Urine Creatinine 05/04/16 12:09 WBC RBC Hgb Hct MCV MCHC RDW Plt Count MPV Neutrophils % Lymphocytes % Monocytes % Eosinophils % Basophils % Sodium Potassium Chloride Carbon Dioxide Anion Gap BUN Creatinine Creat Clearance w eGFR POC Glucometer 117 Random Glucose Calcium Phosphorus Magnesium Total Bilirubin AST ALT Alkaline Phosphatase Total Protein Albumin Free T3 U Random Total Protein Ur Random Sodium Ur Random Potassium Ur Random Chloride Ur Random Urea Nitrogn Urine Creatinine S1 S2 RRR Lungs decreased Abd- soft, NT Edema trace+, wrinkling skin PLAN -- cautious use of Lasix -- IV antibiotics -- monitor renal function -- palliative care Problem List - Problems (1) CHF (congestive heart failure) Code(s): I50.9 - HEART FAILURE, UNSPECIFIED (2) Chronic diastolic CHF (congestive heart failure) Code(s): I50.32 - CHRONIC DIASTOLIC (CONGESTIVE) HEART FAILURE (3) DM II (diabetes mellitus, type II), controlled Code(s): E11.9 - TYPE 2 DIABETES MELLITUS WITHOUT COMPLICATIONS Qualifiers: Diabetes mellitus complication status: with neurologic complications Diabetes mellitus complication detail: with autonomic neuropathy (4) Edema Code(s): R60.9 - EDEMA, UNSPECIFIED (5) HLD (hyperlipidemia) Code(s): E78.5 - HYPERLIPIDEMIA, UNSPECIFIED (6) UTI (urinary tract infection) Code(s): N39.0 - URINARY TRACT INFECTION, SITE NOT SPECIFIED Qualifiers: Urinary tract infection type: acute cystitis (7) Hypotension Code(s): I95.9 - HYPOTENSION, UNSPECIFIED Qualifiers: Hypotension type: other hypotension type Qualified Code(s): I95.89 - Other hypotension
--- NOTE | 2016-05-04 13:14 | PN ---
Progress Note (short form) - Note Progress Note: Patient seen and examined SOB improved. Denies chest pains, GI complaints of nausea, emesis, diarrhea, constipation. Kidney function continues to slowly decline. Last Vital Signs Temp Pulse Resp BP Pulse Ox 97.2 F L 60 20 124/56 94 L 05/04/16 06:00 05/04/16 06:00 05/04/16 06:00 05/04/16 06:00 05/03/16 21:00 HEENT: VIKKI, EOM Intact Oropharynx: No thrush, No mucositis Breasts: chest wall and right breast nodules Cor: RSR, No murmurs, No gallops Lungs: scattered rhonchi Abd: Soft, Normal bowel sounds, No organomegaly Ext:LE edema Skin: No rashes, Integument intact CBC, BMP 05/04/16 07:00 05/04/16 07:00 Current Medications Generic Name Dose Route Start Last Admin Trade Name Freq PRN Reason Stop Dose Admin Calcium Acetate 667 mg 05/02/16 08:00 05/04/16 12:27 Phoslo - PO 667 mg TIDCM [facility] Administration Dronabinol 5 mg 05/02/16 10:00 05/04/16 09:55 Marinol - PO 5 mg DAILY [facility] Administration Furosemide 40 mg 05/03/16 14:00 05/04/16 06:53 Lasix Injection - IVPUSH 40 mg BID@0600,1400 [facility] Administration Heparin Sodium (Porcine) 5,000 unit 05/02/16 10:00 05/04/16 09:53 Heparin - SQ 5,000 unit BID [facility] Administration Ceftriaxone Sodium 50 mls @ 100 mls/hr 05/03/16 12:15 05/04/16 09:56 Rocephin 1gm Ivpb (Pre-Docked) IVPB 100 mls/hr DAILY [facility] Administration Insulin Aspart 1 vial 05/02/16 16:30 05/04/16 12:21 Novolog Vial Sliding Scale - SQ Not Given ACHS [facility] Protocol Oxycodone HCl 5 mg 05/02/16 04:59 Roxicodone - PO Q6H PRN BACK PAIN Pantoprazole Sodium 40 mg 05/02/16 10:00 05/04/16 09:56 Protonix - PO 40 mg DAILY [facility] Administration Polyethylene Glycol 17 gm 05/02/16 10:00 05/04/16 09:55 Miralax (For Daily Use) - PO 17 grams DAILY [facility] Administration Tamoxifen Citrate 20 mg 05/02/16 10:00 05/04/16 09:56 Tamoxifen Citrate PO 20 mg DAILY [facility] Administration Impression: Pneumonia-on antibiotics CHF- on lasix , but rising BUN/creatinine Breast ca- on tamoxifen- multiple prior hormones and chemotherapy Bone mets Anemia-chronic disease / renal disease --?? need for Procrit in futurea Thrombocytopenia-?? sepsis , Plan: Continue therapy for pneumonia Monitor kidney status, Diuresiscareful and judicious Continue tamoxifen.
[2016-05-05] MEDS: INSULIN SLIDING SCALE (NOVOLOG) 1 VIAL SQ SCH ×4 (06:24→22:29)
[2016-05-05] MEDS: FUROSEMIDE 40 MG/4 ML INJECTABLE VIAL IVPUSH SCH (06:24)
[2016-05-05] MEDS: CALCIUM ACETATE 667 MG CAPSULE (FP) PO SCH ×3 (08:38→17:42)
[2016-05-05 09:41] LABS: CALCIUM 8.4 mg/dL (8.5-10.1); CREATININE 4.2 mg/dL (0.55-1.02)
--- NOTE | 2016-05-05 09:48 | PN ---
Progress Note, Physician Chief Complaint: not SOB no chest pain has urine output - Current Medication List Current Medications: Active Medications Calcium Acetate (Phoslo -) 667 mg PO TIDCM [facility] Last Admin: 05/05/16 08:38 Dose: 667 mg Dronabinol (Marinol -) 5 mg PO DAILY [facility] Last Admin: 05/04/16 09:55 Dose: 5 mg Furosemide (Lasix Injection -) 40 mg IVPUSH BID@0600,1400 [facility] Last Admin: 05/05/16 06:24 Dose: 40 mg Heparin Sodium (Porcine) (Heparin -) 5,000 unit SQ BID [facility] Last Admin: 05/04/16 22:11 Dose: 5,000 unit Ceftriaxone Sodium (Rocephin 1gm Ivpb (Pre-Docked)) 50 mls @ 100 mls/hr IVPB DAILY [facility] Last Admin: 05/04/16 09:56 Dose: 100 mls/hr Insulin Aspart (Novolog Vial Sliding Scale -) 1 vial SQ ACHS [facility] PRN Reason: Protocol Last Admin: 05/05/16 06:24 Dose: Not Given Oxycodone HCl (Roxicodone -) 5 mg PO Q6H PRN PRN Reason: BACK PAIN Pantoprazole Sodium (Protonix -) 40 mg PO DAILY [facility] Last Admin: 05/04/16 09:56 Dose: 40 mg Polyethylene Glycol (Miralax (For Daily Use) -) 17 gm PO DAILY [facility] Last Admin: 05/04/16 09:55 Dose: 17 grams Tamoxifen Citrate (Tamoxifen Citrate) 20 mg PO DAILY [facility] Last Admin: 05/04/16 09:56 Dose: 20 mg - Objective Vital Signs: Vital Signs Temperature 97.6 F 05/05/16 06:00 Pulse Rate 62 05/05/16 06:00 Respiratory Rate 20 05/05/16 06:00 Blood Pressure 132/75 05/05/16 06:00 O2 Sat by Pulse Oximetry (%) 100 05/04/16 22:00 Constitutional: Yes: No Distress Cardiovascular: Yes: Regular Rate and Rhythm Respiratory: Yes: Diminished, Rales (bases) Gastrointestinal: Yes: Normal Bowel Sounds, Soft. No: Distention, Tenderness Edema: Yes Edema: LLE: 1+, RLE: 1+ Labs: CBC, BMP 05/04/16 07:00 05/05/16 09:00 INR, PTT INR 1.20 (0.82-1.09) H 05/01/16 15:05 Problem List - Problems (1) CHF (congestive heart failure) Code(s): I50.9 - HEART FAILURE, UNSPECIFIED (2) Chronic diastolic CHF (congestive heart failure) Code(s): I50.32 - CHRONIC DIASTOLIC (CONGESTIVE) HEART FAILURE (3) DM II (diabetes mellitus, type II), controlled Code(s): E11.9 - TYPE 2 DIABETES MELLITUS WITHOUT COMPLICATIONS Qualifiers: Diabetes mellitus complication status: with neurologic complications Diabetes mellitus complication detail: with autonomic neuropathy (4) Edema Code(s): R60.9 - EDEMA, UNSPECIFIED (5) HLD (hyperlipidemia) Code(s): E78.5 - HYPERLIPIDEMIA, UNSPECIFIED (6) UTI (urinary tract infection) Code(s): N39.0 - URINARY TRACT INFECTION, SITE NOT SPECIFIED Qualifiers: Urinary tract infection type: acute cystitis (7) Hypotension Code(s): I95.9 - HYPOTENSION, UNSPECIFIED Qualifiers: Hypotension type: other hypotension type Qualified Code(s): I95.89 - Other hypotension Assessment/Plan plan on Lasix-- may need to decrease renal function worsening She does not want dialysis-- spoke to pt about it continue with meds
--- NOTE | 2016-05-05 09:56 | PN ---
Progress Note, Physician - Current Medication List Current Medications: Active Medications Calcium Acetate (Phoslo -) 667 mg PO TIDCM [facility] Last Admin: 05/05/16 08:38 Dose: 667 mg Dronabinol (Marinol -) 5 mg PO DAILY [facility] Last Admin: 05/04/16 09:55 Dose: 5 mg Furosemide (Lasix Injection -) 40 mg IVPUSH BID@0600,1400 [facility] Last Admin: 05/05/16 06:24 Dose: 40 mg Heparin Sodium (Porcine) (Heparin -) 5,000 unit SQ BID [facility] Last Admin: 05/04/16 22:11 Dose: 5,000 unit Ceftriaxone Sodium (Rocephin 1gm Ivpb (Pre-Docked)) 50 mls @ 100 mls/hr IVPB DAILY [facility] Last Admin: 05/04/16 09:56 Dose: 100 mls/hr Insulin Aspart (Novolog Vial Sliding Scale -) 1 vial SQ ACHS [facility] PRN Reason: Protocol Last Admin: 05/05/16 06:24 Dose: Not Given Oxycodone HCl (Roxicodone -) 5 mg PO Q6H PRN PRN Reason: BACK PAIN Pantoprazole Sodium (Protonix -) 40 mg PO DAILY [facility] Last Admin: 05/04/16 09:56 Dose: 40 mg Polyethylene Glycol (Miralax (For Daily Use) -) 17 gm PO DAILY [facility] Last Admin: 05/04/16 09:55 Dose: 17 grams Tamoxifen Citrate (Tamoxifen Citrate) 20 mg PO DAILY [facility] Last Admin: 05/04/16 09:56 Dose: 20 mg - Objective Vital Signs: Vital Signs Temperature 97.6 F 05/05/16 06:00 Pulse Rate 62 05/05/16 06:00 Respiratory Rate 20 05/05/16 06:00 Blood Pressure 132/75 05/05/16 06:00 O2 Sat by Pulse Oximetry (%) 100 05/04/16 22:00 Eyes: Yes: WNL, Conjunctiva Clear, EOM Intact HENT: Yes: WNL, Atraumatic, Normocephalic Neck: Yes: WNL, Supple, Trachea Midline Cardiovascular: Yes: WNL, Regular Rate and Rhythm Respiratory: Yes: WNL, Regular, CTA Bilaterally Gastrointestinal: Yes: WNL, Normal Bowel Sounds Genitourinary: Yes: WNL Musculoskeletal: Yes: WNL Extremities: Yes: WNL Edema: No Integumentary: Yes: WNL Neurological: Yes: WNL, Alert, Oriented ...Motor Strength: WNL Psychiatric: Yes: WNL Labs: CBC, BMP 05/04/16 07:00 05/05/16 09:00 INR, PTT INR 1.20 (0.82-1.09) H 05/01/16 15:05 Assessment/Plan 76 year old woman with a history of HTN, chronic diastolic chf, CKD, JOSUÉ h/o stents, DMII, breast Ca with mets admitted with sob, lethargy, b/l LE swelling, hypotension. SOB-likely multifactorial including acute on chronic diastolic CHF -improved after diuresis -LE edema appears chronic and actually appears improved based on wrinkling of skin -monitor I/Os and daily weights -Diurese PRN -monitor bun/creat/electrolytes closely -echo from 12/2015 showed normal LV and RV function, Impaired relaxation, mild MR , mild to mod TR, small pericardial effusion -repeat echo w/ mild reduction RV function and sig TR w/ Mild PHTN -Doubt PE- will check LE venous duplex HTN-hypotensive on admission and running lowish baseline BPs now -hold anti-HTN meds for now
[2016-05-05] MEDS ORDERED: PT OWN MED DRAWER 7, Y5N ONE (10:01)
[2016-05-05] MEDS: CEFTRIAXONE 50 ML IVPB SCH (10:08)
[2016-05-05] MEDS: PANTOPRAZOLE 40 MG TABLET (FP) PO SCH (10:08)
[2016-05-05] MEDS: HEPARIN NA (PORCINE) 5,000 UNITS/ML 1ML VIAL SQ SCH (10:08)
[2016-05-05] MEDS: DRONABINOL 2.5 MG CAPSULE PO SCH (10:09)
[2016-05-05] MEDS: TAMOXIFEN CITRATE 10 MG TABLET PO SCH (10:09)
[2016-05-05] MEDS: POLYETHYLENE GLYCOL 3350 119 GM BTL PO SCH ×2 (10:10→10:19)
[2016-05-05] MEDS ORDERED: CEFTRIAXONE 50 ML ONE (10:26)
--- NOTE | 2016-05-05 13:15 | PN ---
Progress Note, Physician - Current Medication List Current Medications: Active Medications Calcium Acetate (Phoslo -) 667 mg PO TIDCM [facility] Last Admin: 05/05/16 08:38 Dose: 667 mg Dronabinol (Marinol -) 5 mg PO DAILY [facility] Last Admin: 05/05/16 10:09 Dose: 5 mg Furosemide (Lasix Injection -) 40 mg IVPUSH DAILY [facility] Heparin Sodium (Porcine) (Heparin -) 5,000 unit SQ BID [facility] Last Admin: 05/05/16 10:08 Dose: 5,000 unit Ceftriaxone Sodium (Rocephin 1gm Ivpb (Pre-Docked)) 50 mls @ 100 mls/hr IVPB DAILY [facility] Last Admin: 05/05/16 10:08 Dose: 100 mls/hr Insulin Aspart (Novolog Vial Sliding Scale -) 1 vial SQ ACHS [facility] PRN Reason: Protocol Last Admin: 05/05/16 12:11 Dose: Not Given Oxycodone HCl (Roxicodone -) 5 mg PO Q6H PRN PRN Reason: BACK PAIN Pantoprazole Sodium (Protonix -) 40 mg PO DAILY [facility] Last Admin: 05/05/16 10:08 Dose: 40 mg Polyethylene Glycol (Miralax (For Daily Use) -) 17 gm PO DAILY [facility] Last Admin: 05/05/16 10:19 Dose: Not Given Tamoxifen Citrate (Tamoxifen Citrate) 20 mg PO DAILY [facility] Last Admin: 05/05/16 10:09 Dose: 20 mg - Objective Vital Signs: Vital Signs Temperature 97.2 F L 05/05/16 12:08 Pulse Rate 66 05/05/16 10:05 Respiratory Rate 28 H 05/05/16 10:05 Blood Pressure 109/57 05/05/16 10:05 O2 Sat by Pulse Oximetry (%) 100 05/04/16 22:00 Constitutional: Yes: Well Nourished, Calm Eyes: Yes: WNL HENT: Yes: WNL Neck: Yes: WNL Cardiovascular: Yes: Regular Rate and Rhythm, S1, S2 Respiratory: Yes: Diminished, Wheezes (few scattered zuly wheezes) Gastrointestinal: Yes: Normal Bowel Sounds, Soft Extremities: Yes: WNL Edema: Yes Labs: CBC, BMP 05/05/16 09:00 INR, PTT - ....Imaging Chest X-ray: Report Reviewed, Image Reviewed (+ congestion) Assessment/Plan moiz List - Problems (1) CHF (congestive heart failure) Code(s): I50.9 - HEART FAILURE, UNSPECIFIED (2) Breast cancer Code(s): C50.919 - [facility] S[facility] OF UNSPECIFIED FEMALE BREAST (3) Kidney failure Code(s): N19 - UNSPECIFIED KIDNEY FAILURE (4) UTI (urinary tract infection) Code(s): N39.0 - URINARY TRACT INFECTION, SITE NOT SPECIFIED Assessment/Plan -O2 -lasix -Strict I&O's -ABX DR BLACKWOOD
--- NOTE | 2016-05-05 13:52 | PN ---
Progress Note, Physician Chief Complaint: Patient seen in bed. No new complaints. BP tends to run low. Excellent urine out put. History of Present Illness: Patient seen on her bed. Has h/o Type 2 DM, Hypertension, CHF, CKD, CA. Breast on Tamoxifen, Chronic LE edema ? Benous stasis. Has h/o antegrade ureteric stenting for unilateral Hydronephrosis. Renal sonogram shows no Hydronephrosis. Has good urine output. No urinary complaints Good appetite. slept well - Current Medication List Current Medications: Active Medications Calcium Acetate (Phoslo -) 667 mg PO TIDCM [facility] Last Admin: 05/05/16 13:31 Dose: 667 mg Dronabinol (Marinol -) 5 mg PO DAILY [facility] Last Admin: 05/05/16 10:09 Dose: 5 mg Heparin Sodium (Porcine) (Heparin -) 5,000 unit SQ BID [facility] Last Admin: 05/05/16 10:08 Dose: 5,000 unit Ceftriaxone Sodium (Rocephin 1gm Ivpb (Pre-Docked)) 50 mls @ 100 mls/hr IVPB DAILY [facility] Last Admin: 05/05/16 10:08 Dose: 100 mls/hr Insulin Aspart (Novolog Vial Sliding Scale -) 1 vial SQ ACHS [facility] PRN Reason: Protocol Last Admin: 05/05/16 12:11 Dose: Not Given Oxycodone HCl (Roxicodone -) 5 mg PO Q6H PRN PRN Reason: BACK PAIN Pantoprazole Sodium (Protonix -) 40 mg PO DAILY [facility] Last Admin: 05/05/16 10:08 Dose: 40 mg Polyethylene Glycol (Miralax (For Daily Use) -) 17 gm PO DAILY [facility] Last Admin: 05/05/16 10:19 Dose: Not Given Tamoxifen Citrate (Tamoxifen Citrate) 20 mg PO DAILY [facility] Last Admin: 05/05/16 10:09 Dose: 20 mg - Objective Vital Signs: Vital Signs Temperature 97.2 F L 05/05/16 12:08 Pulse Rate 66 05/05/16 10:05 Respiratory Rate 28 H 05/05/16 10:05 Blood Pressure 109/57 05/05/16 10:05 O2 Sat by Pulse Oximetry (%) 100 05/04/16 22:00 Constitutional: Yes: Well Nourished, No Distress Eyes: Yes: WNL HENT: Yes: WNL, Atraumatic, Normocephalic Neck: Yes: Supple Cardiovascular: Yes: Regular Rate and Rhythm, S1, S2 Respiratory: Yes: Regular, CTA Bilaterally Gastrointestinal: Yes: WNL, Normal Bowel Sounds Labs: CBC, BMP 05/04/16 07:00 05/05/16 09:00 INR, PTT INR 1.20 (0.82-1.09) H 05/01/16 15:05 Problem List - Problems (1) Chronic diastolic CHF (congestive heart failure) Code(s): I50.32 - CHRONIC DIASTOLIC (CONGESTIVE) HEART FAILURE (2) DM II (diabetes mellitus, type II), controlled Code(s): E11.9 - TYPE 2 DIABETES MELLITUS WITHOUT COMPLICATIONS Qualifiers: Diabetes mellitus complication status: with neurologic complications Diabetes mellitus complication detail: with autonomic neuropathy (3) Edema Code(s): R60.9 - EDEMA, UNSPECIFIED (4) HTN (hypertension) Code(s): I10 - ESSENTIAL (PRIMARY) HYPERTENSION Qualifiers: Hypertension type: renovascular hypertension Qualified Code(s): I15.0 - Renovascular hypertension (5) Anemia Code(s): D64.9 - ANEMIA, UNSPECIFIED Qualifiers: 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, drug-induced (6) Anemia due to chemotherapy Code(s): D64.81 - ANEMIA DUE TO ANTINEOPLASTIC CHEMOTHERAPY T45.1X5A - ADVERSE EFFECT OF ANTINEOPLASTIC AND IMMUNOSUP DRUGS, INIT (7) Breast cancer Code(s): C50.919 - MALIGNANT NEOPLASM OF UNSP SITE OF UNSPECIFIED FEMALE BREAST (8) Breast cancer metastasized to bone Code(s): C50.919 - MALIGNANT NEOPLASM OF UNSP SITE OF UNSPECIFIED FEMALE BREAST C79.51 - SECONDARY MALIGNANT NEOPLASM OF BONE (9) Dehydration Code(s): E86.0 - DEHYDRATION (10) Diabetes Code(s): E11.9 - TYPE 2 DIABETES MELLITUS WITHOUT COMPLICATIONS Qualifiers: Diabetes mellitus type: type 2 Diabetes mellitus complication status: with neurologic complications (11) Kidney failure Code(s): N19 - UNSPECIFIED KIDNEY FAILURE (12) 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 On loop diuretics for Congestive heart failure. But no evdence of CHF now. Will stop the same. On Ceftriaxone for Pneumonia. Will follow with you. Meli Mnotoya MD
[2016-05-05] MEDS ORDERED: ALBUTEROL SO4 0.083% IH SOL 2.5 MG/3 ML VIAL.NEB. NEB PRN (20:18)
[2016-05-05] MEDS: metroNIDAZOLE 250 MG TABLET PO SCH (22:25)
[2016-05-06] MEDS: metroNIDAZOLE 250 MG TABLET PO SCH ×3 (07:03→21:38)
[2016-05-06] MEDS: INSULIN SLIDING SCALE (NOVOLOG) 1 VIAL SQ SCH ×4 (07:04→21:38)
[2016-05-06 07:53] LABS: ALBUMIN 2.1 g/dl (3.4-5.0); CALCIUM 8.5 mg/dL (8.5-10.1); CREATININE 4.2 mg/dL (0.55-1.02)
[2016-05-06 07:56] LABS: BILIRUBIN,TOTAL 0.3 mg/dL (0.2-1.0)
--- NOTE | 2016-05-06 09:46 | PN ---
Progress Note (short form) - Note Progress Note: Subjective Patient seen and examined. Chart reviewed. Patient is comfortable. Denies diarrhea. Passing urine. Denies pain. Afebrile. Objective Last Vital Signs Temp Pulse Resp BP Pulse Ox 98.1 F 68 20 129/93 95 05/06/16 06:00 05/06/16 06:00 05/06/16 06:00 05/06/16 06:00 05/05/16 22:00 Physical Exam Constitutional: Yes: No Distress Cardiovascular: Yes: Regular Rate and Rhythm Respiratory: Yes: Diminished at bases. Gastrointestinal: Yes: Normal Bowel Sounds, Soft. No: Distention, Tenderness Edema: Yes Edema: LLE: 1+, RLE: 1+ Labs: CBC, BMP 05/04/16 07:00 05/06/16 07:00 Laboratory Results - last 24 hr 05/02/16 05/04/16 05/04/16 12:40 06:52 06:58 Sodium Potassium Chloride Carbon Dioxide Anion Gap BUN Creatinine Creat Clearance w eGFR POC Glucometer 71 185 Random Glucose Calcium Total Bilirubin AST ALT Alkaline Phosphatase Total Protein Albumin Blood Type O POSITIVE Antibody Screen Negative Crossmatch See Detail 05/05/16 05/05/16 05/05/16 12:10 17:40 22:26 Sodium Potassium Chloride Carbon Dioxide Anion Gap BUN Creatinine Creat Clearance w eGFR POC Glucometer 125 129 86 Random Glucose Calcium Total Bilirubin AST ALT Alkaline Phosphatase Total Protein Albumin Blood Type Antibody Screen Crossmatch 05/05/16 05/06/16 05/06/16 23:08 05:57 07:00 Sodium 147 H Potassium 3.7 Chloride 112 H Carbon Dioxide 27 Anion Gap 8 BUN 91 H Creatinine 4.2 H Creat Clearance w eGFR 10.32 POC Glucometer 234.48563 252.82257 Random Glucose 66 L D Calcium 8.5 Total Bilirubin 0.3 AST 24 D ALT 12 D Alkaline Phosphatase 121 H Total Protein 7.0 Albumin 2.1 L Blood Type Antibody Screen Crossmatch 05/06/16 07:03 Sodium Potassium Chloride Carbon Dioxide Anion Gap BUN Creatinine Creat Clearance w eGFR POC Glucometer 75 Random Glucose Calcium Total Bilirubin AST ALT Alkaline Phosphatase Total Protein Albumin Blood Type Antibody Screen Crossmatch Assessment and Plan C diff. positive Continue flagyl. Contact precautions. Worsening renal function. Lasix held. Follow up CXR today. If better, then will consider d/c rocephin. Will follow. Follow up labs. Discussed with nursing staff. Documentation prepared by Lisa Awan, acting as a director medical affairs for Eleuterio Mejias MD.
[2016-05-06] MEDS ORDERED: PT OWN MED DRAWER 7, Y5N ONE (09:56)
[2016-05-06] MEDS ORDERED: FUROSEMIDE 40 MG/4 ML INJECTABLE VIAL IVPUSH SCH (10:00)
[2016-05-06] MEDS: CALCIUM ACETATE 667 MG CAPSULE (FP) PO SCH ×3 (10:08→17:29)
[2016-05-06] MEDS: DRONABINOL 2.5 MG CAPSULE PO SCH (10:09)
[2016-05-06] MEDS: CEFTRIAXONE 50 ML IVPB SCH (10:11)
[2016-05-06] MEDS: PANTOPRAZOLE 40 MG TABLET (FP) PO SCH (10:11)
[2016-05-06] MEDS: TAMOXIFEN CITRATE 10 MG TABLET PO SCH (10:12)
--- NOTE | 2016-05-06 12:47 | PN ---
Progress Note, Physician - Current Medication List Current Medications: Active Medications Albuterol Sulfate (Ventolin 0.083% Nebulizer Soln -) 1 amp NEB Q4H PRN PRN Reason: SHORT OF BREATH/WHEEZING Calcium Acetate (Phoslo -) 667 mg PO TIDCM [facility] Last Admin: 05/06/16 12:14 Dose: 667 mg Dronabinol (Marinol -) 5 mg PO DAILY [facility] Last Admin: 05/06/16 10:09 Dose: 5 mg Ceftriaxone Sodium (Rocephin 1gm Ivpb (Pre-Docked)) 50 mls @ 100 mls/hr IVPB DAILY [facility] Last Admin: 05/06/16 10:11 Dose: 100 mls/hr Insulin Aspart (Novolog Vial Sliding Scale -) 1 vial SQ ACHS [facility] PRN Reason: Protocol Last Admin: 05/06/16 12:23 Dose: Not Given Metronidazole (Flagyl -) 500 mg PO TID [facility] Last Admin: 05/06/16 07:03 Dose: 500 mg Oxycodone HCl (Roxicodone -) 5 mg PO Q6H PRN PRN Reason: BACK PAIN Pantoprazole Sodium (Protonix -) 40 mg PO DAILY [facility] Last Admin: 05/06/16 10:11 Dose: 40 mg Tamoxifen Citrate (Tamoxifen Citrate) 20 mg PO DAILY [facility] Last Admin: 05/06/16 10:12 Dose: 20 mg - Objective Vital Signs: Vital Signs Temperature 98.3 F 05/06/16 10:20 Pulse Rate 65 05/06/16 10:20 Respiratory Rate 20 05/06/16 10:20 Blood Pressure 104/55 05/06/16 10:20 O2 Sat by Pulse Oximetry (%) 95 05/05/16 22:00 Labs: CBC, BMP 05/04/16 07:00 05/06/16 07:00 INR, PTT INR 1.20 (0.82-1.09) H 05/01/16 15:05 Problem List - Problems (1) SOB (shortness of breath) Code(s): R06.02 - SHORTNESS OF BREATH (2) Edema Code(s): R60.9 - EDEMA, UNSPECIFIED (3) Chronic diastolic CHF (congestive heart failure) Code(s): I50.32 - CHRONIC DIASTOLIC (CONGESTIVE) HEART FAILURE (4) HTN (hypertension) Code(s): I10 - ESSENTIAL (PRIMARY) HYPERTENSION Qualifiers: Hypertension type: renovascular hypertension Qualified Code(s): I15.0 - Renovascular hypertension (5) HLD (hyperlipidemia) Code(s): E78.5 - HYPERLIPIDEMIA, UNSPECIFIED (6) DM II (diabetes mellitus, type II), controlled Code(s): E11.9 - TYPE 2 DIABETES MELLITUS WITHOUT COMPLICATIONS Qualifiers: Diabetes mellitus complication status: with neurologic complications Diabetes mellitus complication detail: with autonomic neuropathy Assessment/Plan 76 year old woman with a history of HTN, chronic diastolic chf, CKD, JOSUÉ h/o stents, DMII, breast Ca with mets admitted with sob, lethargy, b/l LE swelling, hypotension. SOB-likely multifactorial including acute on chronic diastolic CHF -Lasix stopped as developing worsening intravascular depletion, bun/creat increased -monitor I/Os and daily weights -monitor bun/creat/electrolytes closely -echo from 12/2015 showed normal LV and RV function, Impaired relaxation, mild MR , mild to mod TR, small pericardial effusion -repeat echo showed normal LV function, mildly reduced RV function with severe TR, mild PAH -repeat echo w/ mild reduction RV function and sig TR w/ Mild PHTN -Unlikely PE- LE venous duplex showed no DVT HTN-hypotensive on admission BP now improved, lower end of normal -hold anti-HTN meds
--- NOTE | 2016-05-06 14:27 | PN ---
Progress Note, Physician History of Present Illness: pulmonary alert,nad,-sob,-cp - Current Medication List Current Medications: Active Medications Albuterol Sulfate (Ventolin 0.083% Nebulizer Soln -) 1 amp NEB Q4H PRN PRN Reason: SHORT OF BREATH/WHEEZING Calcium Acetate (Phoslo -) 667 mg PO TIDCM [facility] Last Admin: 05/06/16 12:14 Dose: 667 mg Dronabinol (Marinol -) 5 mg PO DAILY [facility] Last Admin: 05/06/16 10:09 Dose: 5 mg Ceftriaxone Sodium (Rocephin 1gm Ivpb (Pre-Docked)) 50 mls @ 100 mls/hr IVPB DAILY [facility] Last Admin: 05/06/16 10:11 Dose: 100 mls/hr Insulin Aspart (Novolog Vial Sliding Scale -) 1 vial SQ ACHS [facility] PRN Reason: Protocol Last Admin: 05/06/16 12:23 Dose: Not Given Metronidazole (Flagyl -) 500 mg PO TID [facility] Last Admin: 05/06/16 13:11 Dose: 500 mg Oxycodone HCl (Roxicodone -) 5 mg PO Q6H PRN PRN Reason: BACK PAIN Pantoprazole Sodium (Protonix -) 40 mg PO DAILY [facility] Last Admin: 05/06/16 10:11 Dose: 40 mg Tamoxifen Citrate (Tamoxifen Citrate) 20 mg PO DAILY [facility] Last Admin: 05/06/16 10:12 Dose: 20 mg - Objective Vital Signs: Vital Signs Temperature 98.3 F 05/06/16 10:20 Pulse Rate 65 05/06/16 10:20 Respiratory Rate 20 05/06/16 10:20 Blood Pressure 104/55 05/06/16 10:20 O2 Sat by Pulse Oximetry (%) 95 05/05/16 22:00 Constitutional: Yes: Calm, Thin Eyes: Yes: WNL HENT: Yes: WNL Neck: Yes: WNL Cardiovascular: Yes: Regular Rate and Rhythm, S1, S2 Respiratory: Yes: Rales (few bibasilar crackles) Gastrointestinal: Yes: Normal Bowel Sounds, Soft Extremities: Yes: WNL Edema: No Labs: CBC, BMP 05/04/16 07:00 05/06/16 07:00 INR, PTT INR 1.20 (0.82-1.09) H 05/01/16 15:05 Assessment/Plan moiz List - Problems (1) CHF (congestive heart failure) Code(s): I50.9 - HEART FAILURE, UNSPECIFIED (2) Breast cancer Code(s): C50.919 - MALIGNANT NEOPLASM OF [facility] SITE OF UNSPECIFIED FEMALE BREAST (3) Kidney failure Code(s): N19 - UNSPECIFIED KIDNEY FAILURE (4) UTI (urinary tract infection) Code(s): N39.0 - URINARY TRACT INFECTION, SITE NOT SPECIFIED Assessment/Plan -O2 -Strict I&O's -ABX - monitor lytes,renal function DR BLACKWOOD
[2016-05-06 15:03] LABS: BASOPHIL 0.3 % (0-2.0); EOSINOPHIL 1.4 % (0-4.5); MCH 29.2 pg (25.7-33.7); MCHC 31.6 g/dl (32.0-36.0); MEAN CELL VOLUME 92.2 fl (80-96); MEAN PLT VOLUME 9.8 fl (7.5-11.1); NEUTROPHILS 63.4 % (42.8-82.8); PLATELET COUNT 134 K/MM3 (134-434); RDW 17.2 % (11.6-15.6); WHITE BLOOD COUNT 3.9 K/mm3 (4.0-10.0)
--- NOTE | 2016-05-06 16:13 | PN ---
Progress Note (short form) - Note Progress Note: Patient seen and examined c/o exertional SOB Last Vital Signs Temp Pulse Resp BP Pulse Ox 97.7 F 65 20 128/62 95 05/06/16 14:45 05/06/16 14:45 05/06/16 14:45 05/06/16 14:45 05/06/16 09:00 Cor: RSR, No murmurs, No gallops Lungs: Clear to P&A Abd: Soft, Normal bowel sounds, No organomegaly Ext:No significant edema Skin: No rashes, Integument intact Abnormal Lab Results 05/06/16 05/06/16 07:00 14:30 WBC 3.9 L RBC 2.86 L Hgb 8.3 L Hct 26.3 L MCHC 31.6 L RDW 17.2 H Monocytes % 14.0 H Sodium 147 H Chloride 112 H BUN 91 H Creatinine 4.2 H Random Glucose 66 L D Alkaline Phosphatase 121 H Albumin 2.1 L Current Medications Albuterol Sulfate (Ventolin 0.083% Nebulizer Soln -) 1 amp NEB Q4H PRN PRN Reason: SHORT OF BREATH/WHEEZING Calcium Acetate (Phoslo -) 667 mg PO TIDCM [facility] Last Admin: 05/06/16 12:14 Dose: 667 mg Dronabinol (Marinol -) 5 mg PO DAILY [facility] Last Admin: 05/06/16 10:09 Dose: 5 mg Ceftriaxone Sodium (Rocephin 1gm Ivpb (Pre-Docked)) 50 mls @ 100 mls/hr IVPB DAILY [facility] Last Admin: 05/06/16 10:11 Dose: 100 mls/hr Insulin Aspart (Novolog Vial Sliding Scale -) 1 vial SQ ACHS [facility] PRN Reason: Protocol Last Admin: 05/06/16 12:23 Dose: Not Given Metronidazole (Flagyl -) 500 mg PO TID [facility] Last Admin: 05/06/16 13:11 Dose: 500 mg Oxycodone HCl (Roxicodone -) 5 mg PO Q6H PRN PRN Reason: BACK PAIN Pantoprazole Sodium (Protonix -) 40 mg PO DAILY [facility] Last Admin: 05/06/16 10:11 Dose: 40 mg Tamoxifen Citrate (Tamoxifen Citrate) 20 mg PO DAILY [facility] Last Admin: 05/06/16 10:12 Dose: 20 mg A/P 76 y/o patient with metastatic breast cance , s/p multiple lines of therapy,now worsenig renal disease/shortness of breath Concern for lymphangitic spread poor overall prognosis
--- NOTE | 2016-05-06 17:34 | PN ---
Progress Note (short form) - Note Progress Note: Renal Follow up for SUSY/CKD/Volume Overload Pt seen and examined at the bedside no acute complaints denies sob but has not been out of bed no chest or abd pain Vital Signs Temperature 97.7 F 05/06/16 14:45 Pulse Rate 65 05/06/16 14:45 Respiratory Rate 20 05/06/16 14:45 Blood Pressure 128/62 05/06/16 14:45 O2 Sat by Pulse Oximetry (%) 95 05/06/16 09:00 Intake & Output 05/03/16 05/04/16 05/05/16 05/06/16 23:59 23:59 23:59 23:59 Intake Total 0647 127 0053 250 Output Total 8057 130 0397 650 Balance 270 10 -100 -400 Weight 152 lb 3.2 oz 144 lb 2 oz 141 lb 14.4 oz Gen: NAD, awake and alert HEENT: NC/AT, MMM, CVS: RRR, No M/R Lungs: + rales b/l lung ascencio Abd: soft NT/ND Ext: 2+ edema in B/L LE Neuro: Awake and alert CBC, BMP 05/06/16 14:30 05/06/16 07:00 Current Medications Albuterol Sulfate (Ventolin 0.083% Nebulizer Soln -) 1 amp NEB Q4H PRN PRN Reason: SHORT OF BREATH/WHEEZING Calcium Acetate (Phoslo -) 667 mg PO TIDCM [facility] Last Admin: 05/06/16 17:29 Dose: 667 mg Dronabinol (Marinol -) 5 mg PO DAILY [facility] Last Admin: 05/06/16 10:09 Dose: 5 mg Ceftriaxone Sodium (Rocephin 1gm Ivpb (Pre-Docked)) 50 mls @ 100 mls/hr IVPB DAILY [facility] Last Admin: 05/06/16 10:11 Dose: 100 mls/hr Insulin Aspart (Novolog Vial Sliding Scale -) 1 vial SQ ACHS [facility] PRN Reason: Protocol Last Admin: 05/06/16 16:30 Dose: Not Given Metronidazole (Flagyl -) 500 mg PO TID [facility] Last Admin: 05/06/16 13:11 Dose: 500 mg Oxycodone HCl (Roxicodone -) 5 mg PO Q6H PRN PRN Reason: BACK PAIN Pantoprazole Sodium (Protonix -) 40 mg PO DAILY [facility] Last Admin: 05/06/16 10:11 Dose: 40 mg Tamoxifen Citrate (Tamoxifen Citrate) 20 mg PO DAILY [facility] Last Admin: 05/06/16 10:12 Dose: 20 mg A/p 76 year odl Woman with Breast Ca, Hypertension, CHF (right heart), DM, CKD with recent SUSY from Left Hydronephrosis presented with sob, worsening LE edema and found to have acute HF. #Acute on chronic Renal Insufficiency Renal function worsened with IV diuretics holding lasix for now volume status appears improved and pt without dyspnea Trend NA/BUN/Cr no acute indication for ELOCUTION TEACHER and as per family and pts wishes they do not want ELOCUTION TEACHER #Acute CHF volume status improved holding diuretics #Breast Ca Continue Tamoxifen as per Oncology #Possible PNA on CXR continue Ceftrixaone f/u cultures #Anemia s/p PRBC transfusion 05/02/2015 Thank you Will follow Cade Altamirano DO
[2016-05-07] MEDS: INSULIN SLIDING SCALE (NOVOLOG) 1 VIAL SQ SCH ×4 (07:09→21:45)
[2016-05-07] MEDS: metroNIDAZOLE 250 MG TABLET PO SCH ×3 (07:11→21:44)
[2016-05-07 08:24] LABS: MCH 30.2 pg (25.7-33.7); MCHC 32.7 g/dl (32.0-36.0); MEAN CELL VOLUME 92.3 fl (80-96); MEAN PLT VOLUME 9.3 fl (7.5-11.1); PLATELET COUNT 132 K/MM3 (134-434); RDW 17.6 % (11.6-15.6)
[2016-05-07 08:59] LABS: ALBUMIN 2.1 g/dl (3.4-5.0); CALCIUM 8.5 mg/dL (8.5-10.1); CREATININE 4.3 mg/dL (0.55-1.02); MAGNESIUM 2.2 mg/dL (1.8-2.4); PHOSPHOROUS 4.3 mg/dL (2.5-4.9)
[2016-05-07 09:00] LABS: BILIRUBIN,TOTAL 0.3 mg/dL (0.2-1.0); TOT PROT 6.7 g/dl (6.4-8.2)
--- NOTE | 2016-05-07 09:17 | PN ---
Progress Note, Physician Chief Complaint: sitting in chair no distress denies chest pain or SOB - Current Medication List Current Medications: Active Medications Albuterol Sulfate (Ventolin 0.083% Nebulizer Soln -) 1 amp NEB Q4H PRN PRN Reason: SHORT OF BREATH/WHEEZING Calcium Acetate (Phoslo -) 667 mg PO TIDCM [facility] Last Admin: 05/06/16 17:29 Dose: 667 mg Dronabinol (Marinol -) 5 mg PO DAILY [facility] Last Admin: 05/06/16 10:09 Dose: 5 mg Ceftriaxone Sodium (Rocephin 1gm Ivpb (Pre-Docked)) 50 mls @ 100 mls/hr IVPB DAILY [facility] Last Admin: 05/06/16 10:11 Dose: 100 mls/hr Insulin Aspart (Novolog Vial Sliding Scale -) 1 vial SQ ACHS [facility] PRN Reason: Protocol Last Admin: 05/07/16 07:09 Dose: Not Given Metronidazole (Flagyl -) 500 mg PO TID [facility] Last Admin: 05/07/16 07:11 Dose: 500 mg Oxycodone HCl (Roxicodone -) 5 mg PO Q6H PRN PRN Reason: BACK PAIN Pantoprazole Sodium (Protonix -) 40 mg PO DAILY [facility] Last Admin: 05/06/16 10:11 Dose: 40 mg Tamoxifen Citrate (Tamoxifen Citrate) 20 mg PO DAILY [facility] Last Admin: 05/06/16 10:12 Dose: 20 mg - Objective Vital Signs: Vital Signs Temperature 97.9 F 05/07/16 05:55 Pulse Rate 67 05/07/16 05:55 Respiratory Rate 20 05/07/16 05:55 Blood Pressure 130/46 05/07/16 05:55 O2 Sat by Pulse Oximetry (%) 97 05/06/16 21:30 Constitutional: Yes: No Distress Cardiovascular: Yes: Regular Rate and Rhythm Respiratory: Yes: Other (slight decreased breath sounds bases, o/w clear) Gastrointestinal: Yes: Soft Edema: No Neurological: Yes: Alert Labs: CBC, BMP 05/07/16 07:05 05/07/16 07:05 INR, PTT INR 1.20 (0.82-1.09) H 05/01/16 15:05 Assessment/Plan Assessment/Plan 76 year old woman with a history of HTN, chronic diastolic chf, CKD, JOSUÉ h/o stents, DMII, breast Ca with mets admitted with sob, lethargy, b/l LE swelling, hypotension. SOB-likely multifactorial including acute on chronic diastolic CHF -Lasix stopped as developing worsening intravascular depletion, bun/creat increased -monitor I/Os and daily weights -monitor bun/creat/electrolytes closely -echo from 12/2015 showed normal LV and RV function, Impaired relaxation, mild MR , mild to mod TR, small pericardial effusion -repeat echo showed normal LV function, mildly reduced RV function with severe TR, mild PAH -Unlikely PE- LE venous duplex showed no DVT HTN-hypotensive on admission BP now improved, lower end of normal -hold anti-HTN meds C Diff- on flagyl -as per PMD
[2016-05-07 10:42] LABS: PLATELET ESTIMATE ADEQUATE (NORMAL)
[2016-05-07 10:44] LABS: SMUDGE CELLS FEW; TOXIC GRANULATION FEW
--- NOTE | 2016-05-07 10:54 | PN ---
Progress Note (short form) - Note Progress Note: PULMONARY Breathing better but not at baseline. No cough or wheezing. No fevers recorded. Last Vital Signs Temp Pulse Resp BP Pulse Ox 97.9 F 67 20 130/46 97 05/07/16 05:55 05/07/16 05:55 05/07/16 05:55 05/07/16 05:55 05/06/16 21:30 Gen: NAD at rest Heart: RRR Lung: basilar rales Abd: soft, nontender EXt: no edema CBC, BMP 05/07/16 07:05 05/07/16 07:05 Active Medications Albuterol Sulfate (Ventolin 0.083% Nebulizer Soln -) 1 amp NEB Q4H PRN PRN Reason: SHORT OF BREATH/WHEEZING Calcium Acetate (Phoslo -) 667 mg PO TIDCM [facility] Last Admin: 05/06/16 17:29 Dose: 667 mg Dronabinol (Marinol -) 5 mg PO DAILY [facility] Last Admin: 05/06/16 10:09 Dose: 5 mg Ceftriaxone Sodium (Rocephin 1gm Ivpb (Pre-Docked)) 50 mls @ 100 mls/hr IVPB DAILY [facility] Last Admin: 05/06/16 10:11 Dose: 100 mls/hr Insulin Aspart (Novolog Vial Sliding Scale -) 1 vial SQ ACHS [facility] PRN Reason: Protocol Last Admin: 05/07/16 07:09 Dose: Not Given Metronidazole (Flagyl -) 500 mg PO TID [facility] Last Admin: 05/07/16 07:11 Dose: 500 mg Oxycodone HCl (Roxicodone -) 5 mg PO Q6H PRN PRN Reason: BACK PAIN Pantoprazole Sodium (Protonix -) 40 mg PO DAILY [facility] Last Admin: 05/06/16 10:11 Dose: 40 mg Tamoxifen Citrate (Tamoxifen Citrate) 20 mg PO DAILY [facility] Last Admin: 05/06/16 10:12 Dose: 20 mg A/P Acute on Chronic LV Diastolic Heart Failure Breast Ca HTN DM UTI + C Diff Ag - continue antibiotics - lasix as needed - inhaled bronchodilators - O2 to keep SpO2 >90% - DVT prophylaxis
--- NOTE | 2016-05-07 11:05 | PN ---
Progress Note (short form) - Note Progress Note: Renal Follow up for SUSY/CKD/Volume Overload Pt seen and examined at the bedside states that she feels better denies any sob at rest, denies cough no pain or fever Vital Signs Temperature 97.9 F 05/07/16 05:55 Pulse Rate 67 05/07/16 05:55 Respiratory Rate 20 05/07/16 05:55 Blood Pressure 130/46 05/07/16 05:55 O2 Sat by Pulse Oximetry (%) 97 05/06/16 21:30 Intake & Output 05/04/16 05/05/16 05/06/16 05/07/16 23:59 23:59 23:59 23:59 Intake Total 910 1000 250 Output Total 900 1100 1050 600 Balance 10 -100 -800 -600 Weight 144 lb 2 oz 141 lb 14.4 oz 140 lb 2 oz Gen: NAD, awake and alert HEENT: NC/AT CVS: RRR, No M/R Lungs: + rales b/l lung ascencio Abd: soft NT/ND Ext: 1+ edema in LE Neuro: Awake and alert CBC, BMP 05/07/16 07:05 05/07/16 07:05 Laboratory Tests 05/07/16 07:05 Calcium 8.5 Phosphorus 4.3 Magnesium 2.2 Albumin 2.1 L Current Medications Albuterol Sulfate (Ventolin 0.083% Nebulizer Soln -) 1 amp NEB Q4H PRN PRN Reason: SHORT OF BREATH/WHEEZING Calcium Acetate (Phoslo -) 667 mg PO TIDCM [facility] Last Admin: 05/06/16 17:29 Dose: 667 mg Dronabinol (Marinol -) 5 mg PO DAILY [facility] Last Admin: 05/06/16 10:09 Dose: 5 mg Ceftriaxone Sodium (Rocephin 1gm Ivpb (Pre-Docked)) 50 mls @ 100 mls/hr IVPB DAILY [facility] Last Admin: 05/06/16 10:11 Dose: 100 mls/hr Insulin Aspart (Novolog Vial Sliding Scale -) 1 vial SQ ACHS [facility] PRN Reason: Protocol Last Admin: 05/07/16 07:09 Dose: Not Given Metronidazole (Flagyl -) 500 mg PO TID [facility] Last Admin: 05/07/16 07:11 Dose: 500 mg Oxycodone HCl (Roxicodone -) 5 mg PO Q6H PRN PRN Reason: BACK PAIN Pantoprazole Sodium (Protonix -) 40 mg PO DAILY [facility] Last Admin: 05/06/16 10:11 Dose: 40 mg Tamoxifen Citrate (Tamoxifen Citrate) 20 mg PO DAILY [facility] Last Admin: 05/06/16 10:12 Dose: 20 mg A/p 76 year odl Woman with Breast Ca, Hypertension, CHF (right heart), DM, CKD with recent SUSY from Left Hydronephrosis presented with sob, worsening LE edema and found to have acute HF. #Acute on chronic Renal Insufficiency Renal function still worsening continue to hold standing diuretics will not give IVF given total body overload and cocern for worsening CHF No acute indication for dialysis and family and pt wish not to pursue dialysis Dose all meds for Cr Cl less then 10 #Acute CHF volume status improved holding diuretics now Cardiology following #Breast Ca Continue Tamoxifen as per Oncology #UTI continue Ceftrixaone f/u cultures #Anemia s/p PRBC transfusion 05/02/2015 no acute indication for transfusion at this time heme/oncology following Thank you Will follow Cade Altamirano DO
--- NOTE | 2016-05-07 12:11 | PN ---
Progress Note, Physician Chief Complaint: not SOB no chest pain has urine output not in distress - Current Medication List Current Medications: Active Medications Albuterol Sulfate (Ventolin 0.083% Nebulizer Soln -) 1 amp NEB Q4H PRN PRN Reason: SHORT OF BREATH/WHEEZING Calcium Acetate (Phoslo -) 667 mg PO TIDCM [facility] Last Admin: 05/06/16 17:29 Dose: 667 mg Dronabinol (Marinol -) 5 mg PO DAILY [facility] Last Admin: 05/06/16 10:09 Dose: 5 mg Ceftriaxone Sodium (Rocephin 1gm Ivpb (Pre-Docked)) 50 mls @ 100 mls/hr IVPB DAILY [facility] Last Admin: 05/06/16 10:11 Dose: 100 mls/hr Insulin Aspart (Novolog Vial Sliding Scale -) 1 vial SQ ACHS [facility] PRN Reason: Protocol Last Admin: 05/07/16 07:09 Dose: Not Given Metronidazole (Flagyl -) 500 mg PO TID [facility] Last Admin: 05/07/16 07:11 Dose: 500 mg Oxycodone HCl (Roxicodone -) 5 mg PO Q6H PRN PRN Reason: BACK PAIN Pantoprazole Sodium (Protonix -) 40 mg PO DAILY [facility] Last Admin: 05/06/16 10:11 Dose: 40 mg Tamoxifen Citrate (Tamoxifen Citrate) 20 mg PO DAILY [facility] Last Admin: 05/06/16 10:12 Dose: 20 mg - Objective Vital Signs: Vital Signs Temperature 97.9 F 05/07/16 05:55 Pulse Rate 67 05/07/16 05:55 Respiratory Rate 20 05/07/16 05:55 Blood Pressure 130/46 05/07/16 05:55 O2 Sat by Pulse Oximetry (%) 97 05/06/16 21:30 Constitutional: Yes: No Distress Cardiovascular: Yes: Regular Rate and Rhythm Respiratory: Yes: Diminished, Rales (bases) Gastrointestinal: Yes: Normal Bowel Sounds, Soft, Abdomen, Obese, Distention. No: Tenderness Edema: No Labs: CBC, BMP 05/07/16 07:05 05/07/16 07:05 INR, PTT INR 1.20 (0.82-1.09) H 05/01/16 15:05 Problem List - Problems (1) CHF (congestive heart failure) Code(s): I50.9 - HEART FAILURE, UNSPECIFIED (2) Chronic diastolic CHF (congestive heart failure) Code(s): I50.32 - CHRONIC DIASTOLIC (CONGESTIVE) HEART FAILURE (3) DM II (diabetes mellitus, type II), controlled Code(s): E11.9 - TYPE 2 DIABETES MELLITUS WITHOUT COMPLICATIONS Qualifiers: Diabetes mellitus complication status: with neurologic complications Diabetes mellitus complication detail: with autonomic neuropathy (4) Edema Code(s): R60.9 - EDEMA, UNSPECIFIED (5) HLD (hyperlipidemia) Code(s): E78.5 - HYPERLIPIDEMIA, UNSPECIFIED (6) UTI (urinary tract infection) Code(s): N39.0 - URINARY TRACT INFECTION, SITE NOT SPECIFIED Qualifiers: Urinary tract infection type: acute cystitis (7) Hypotension Code(s): I95.9 - HYPOTENSION, UNSPECIFIED Qualifiers: Hypotension type: other hypotension type Qualified Code(s): I95.89 - Other hypotension Assessment/Plan plan off Lasix due to worsening renal function pt and family does not want dialysis Flagyl for [facility] palliative care for home hospice-- pt wants to go home- not to [facility]
[2016-05-07] MEDS ORDERED: PT OWN MED DRAWER 7, Y5N ONE ×2 (12:46→12:47)
[2016-05-07] MEDS: PANTOPRAZOLE 40 MG TABLET (FP) PO SCH (13:11)
[2016-05-07] MEDS: CALCIUM ACETATE 667 MG CAPSULE (FP) PO SCH ×3 (13:12→18:26)
[2016-05-07] MEDS: DRONABINOL 2.5 MG CAPSULE PO SCH (13:38)
--- NOTE | 2016-05-07 16:48 | PN ---
Progress Note (short form) - Note Progress Note: Patient seen and examined Denies chest pain or shortness of breath Having watery stools- Last Vital Signs Temp Pulse Resp BP Pulse Ox 97.4 F L 64 20 128/68 97 05/07/16 15:15 05/07/16 15:15 05/07/16 15:15 05/07/16 15:15 05/06/16 21:30 HEENT: VIKKI, EOM Intact Oropharynx: No thrush, No mucositis Breasts: cutaneous masses,chest wall nodules Cor: RSR, No murmurs, No gallops Lungs: scattered rales bilaterally Abd: Soft, Normal bowel sounds, No organomegaly Ext:significant LE edema Skin: No rashes, Integument intact CBC, BMP 05/07/16 07:05 05/07/16 07:05 Current Medications Generic Name Dose Route Start Last Admin Trade Name Freq PRN Reason Stop Dose Admin Albuterol Sulfate 1 amp 05/05/16 20:18 Ventolin 0.083% Nebulizer Soln - NEB Q4H PRN SHORT OF BREATH/WHEEZING Calcium Acetate 667 mg 05/02/16 08:00 05/07/16 13:36 Phoslo - PO Not Given TIDCM [facility] Dronabinol 5 mg 05/02/16 10:00 05/07/16 13:38 Marinol - PO 5 mg DAILY [facility] Administration Insulin Aspart 1 vial 05/02/16 16:30 05/07/16 13:09 Novolog Vial Sliding Scale - SQ Not Given ACHS [facility] Protocol Metronidazole 500 mg 05/05/16 22:00 05/07/16 07:11 Flagyl - PO 500 mg TID [facility] Administration Oxycodone HCl 5 mg 05/02/16 04:59 Roxicodone - PO Q6H PRN BACK PAIN Pantoprazole Sodium 40 mg 05/02/16 10:00 05/07/16 13:11 Protonix - PO 40 mg DAILY [facility] Administration Tamoxifen Citrate 20 mg 05/02/16 10:00 05/06/16 10:12 Tamoxifen Citrate PO 20 mg DAILY [facility] Administration Impression: Metastatic breast ca Cutaneous, javier, bone mets Fluid Overload SUSY/CKD Pancytopenia C. difficile -Flagyl Plan; Transfuse prn further fall in Hct Flagyl Continue Tamoxifen Monitor CBC
[2016-05-07] MEDS: CEFTRIAXONE 50 ML IVPB SCH (17:33)
[2016-05-07] MEDS: TAMOXIFEN CITRATE 10 MG TABLET PO SCH (18:25)
[2016-05-08] MEDS: metroNIDAZOLE 250 MG TABLET PO SCH ×3 (05:29→22:39)
[2016-05-08] MEDS: INSULIN SLIDING SCALE (NOVOLOG) 1 VIAL SQ SCH ×4 (06:07→22:39)
[2016-05-08 07:43] LABS: MCH 29.9 pg (25.7-33.7); MCHC 32.2 g/dl (32.0-36.0); MEAN CELL VOLUME 92.9 fl (80-96); MEAN PLT VOLUME 9.3 fl (7.5-11.1); PLATELET COUNT 136 K/MM3 (134-434); RDW 17.8 % (11.6-15.6); WHITE BLOOD COUNT 2.8 K/mm3 (4.0-10.0)
[2016-05-08 07:59] LABS: CALCIUM 8.5 mg/dL (8.5-10.1); MAGNESIUM 2.2 mg/dL (1.8-2.4); PHOSPHOROUS 4.2 mg/dL (2.5-4.9)
--- NOTE | 2016-05-08 09:49 | PN ---
Progress Note, Physician Chief Complaint: alert and oriented Feels better History of Present Illness: denies chest pain or SOB - Current Medication List Current Medications: Active Medications Albuterol Sulfate (Ventolin 0.083% Nebulizer Soln -) 1 amp NEB Q4H PRN PRN Reason: SHORT OF BREATH/WHEEZING Calcium Acetate (Phoslo -) 667 mg PO TIDCM [facility] Last Admin: 05/07/16 18:26 Dose: 667 mg Dronabinol (Marinol -) 5 mg PO DAILY [facility] Last Admin: 05/07/16 13:38 Dose: 5 mg Insulin Aspart (Novolog Vial Sliding Scale -) 1 vial SQ ACHS [facility] PRN Reason: Protocol Last Admin: 05/08/16 06:07 Dose: Not Given Metronidazole (Flagyl -) 500 mg PO TID [facility] Last Admin: 05/08/16 05:29 Dose: 500 mg Oxycodone HCl (Roxicodone -) 5 mg PO Q6H PRN PRN Reason: BACK PAIN Pantoprazole Sodium (Protonix -) 40 mg PO DAILY [facility] Last Admin: 05/07/16 13:11 Dose: 40 mg Tamoxifen Citrate (Tamoxifen Citrate) 20 mg PO DAILY [facility] Last Admin: 05/07/16 18:25 Dose: 20 mg - Objective Vital Signs: Vital Signs Temperature 97.3 F L 05/08/16 06:00 Pulse Rate 94 H 05/08/16 06:00 Respiratory Rate 20 05/08/16 06:00 Blood Pressure 112/66 05/08/16 06:00 O2 Sat by Pulse Oximetry (%) 96 05/07/16 21:00 Constitutional: Yes: No Distress Cardiovascular: Yes: Regular Rate and Rhythm Respiratory: Yes: Other (slight decreased basilar breath sounds) Gastrointestinal: Yes: Soft (no rebound or guarding) Edema: No Neurological: Yes: Alert Labs: CBC, BMP 05/08/16 06:00 05/08/16 06:00 INR, PTT INR 1.20 (0.82-1.09) H 05/01/16 15:05 Laboratory Tests 05/08/16 05/08/16 06:00 06:00 WBC 2.8 L Hct 25.2 L Plt Count 136 Sodium 146 H Potassium 3.7 BUN 75 H Creatinine 4.0 H Assessment/Plan Assessment/Plan 76 year old woman with a history of HTN, chronic diastolic chf, CKD, JOSUÉ h/o stents, DMII, breast Ca with mets admitted with sob, lethargy, b/l LE swelling, hypotension. SOB-likely multifactorial including acute on chronic diastolic CHF -Lasix stopped as developing worsening intravascular depletion, bun/creat increased -monitor bun/creat/electrolytes closely -repeat echo showed normal LV function, mildly reduced RV function with severe TR, mild PAH -Unlikely PE- LE venous duplex showed no DVT HTN-hypotensive on admission BP now improved, lower end of normal -hold anti-HTN meds C Diff- on flagyl -as per PMD
[2016-05-08 10:25] LABS: PLATELET ESTIMATE ADEQUATE (NORMAL)
--- NOTE | 2016-05-08 11:26 | PN ---
Progress Note, Physician Chief Complaint: not SOB no chest pain has urine output not in distress - Current Medication List Current Medications: Active Medications Albuterol Sulfate (Ventolin 0.083% Nebulizer Soln -) 1 amp NEB Q4H PRN PRN Reason: SHORT OF BREATH/WHEEZING Calcium Acetate (Phoslo -) 667 mg PO TIDCM [facility] Last Admin: 05/07/16 18:26 Dose: 667 mg Dronabinol (Marinol -) 5 mg PO DAILY [facility] Last Admin: 05/07/16 13:38 Dose: 5 mg Insulin Aspart (Novolog Vial Sliding Scale -) 1 vial SQ ACHS [facility] PRN Reason: Protocol Last Admin: 05/08/16 06:07 Dose: Not Given Metronidazole (Flagyl -) 500 mg PO TID [facility] Last Admin: 05/08/16 05:29 Dose: 500 mg Oxycodone HCl (Roxicodone -) 5 mg PO Q6H PRN PRN Reason: BACK PAIN Pantoprazole Sodium (Protonix -) 40 mg PO DAILY [facility] Last Admin: 05/07/16 13:11 Dose: 40 mg Tamoxifen Citrate (Tamoxifen Citrate) 20 mg PO DAILY [facility] Last Admin: 05/07/16 18:25 Dose: 20 mg - Objective Vital Signs: Vital Signs Temperature 97.3 F L 05/08/16 06:00 Pulse Rate 94 H 05/08/16 06:00 Respiratory Rate 20 05/08/16 06:00 Blood Pressure 112/66 05/08/16 06:00 O2 Sat by Pulse Oximetry (%) 96 05/07/16 21:00 Constitutional: Yes: No Distress, Calm Cardiovascular: Yes: Regular Rate and Rhythm Respiratory: Yes: Diminished, Rales Gastrointestinal: Yes: Normal Bowel Sounds, Soft. No: Distention, Tenderness Edema: Yes Labs: CBC, BMP 05/08/16 06:00 05/08/16 06:00 INR, PTT INR 1.20 (0.82-1.09) H 05/01/16 15:05 Problem List - Problems (1) CHF (congestive heart failure) Code(s): I50.9 - HEART FAILURE, UNSPECIFIED (2) Chronic diastolic CHF (congestive heart failure) Code(s): I50.32 - CHRONIC DIASTOLIC (CONGESTIVE) HEART FAILURE (3) DM II (diabetes mellitus, type II), controlled Code(s): E11.9 - TYPE 2 DIABETES MELLITUS WITHOUT COMPLICATIONS Qualifiers: Diabetes mellitus complication status: with neurologic complications Diabetes mellitus complication detail: with autonomic neuropathy (4) Edema Code(s): R60.9 - EDEMA, UNSPECIFIED (5) HLD (hyperlipidemia) Code(s): E78.5 - HYPERLIPIDEMIA, UNSPECIFIED (6) UTI (urinary tract infection) Code(s): N39.0 - URINARY TRACT INFECTION, SITE NOT SPECIFIED Qualifiers: Urinary tract infection type: acute cystitis (7) Hypotension Code(s): I95.9 - HYPOTENSION, UNSPECIFIED Qualifiers: Hypotension type: other hypotension type Qualified Code(s): I95.89 - Other hypotension Assessment/Plan plan off Lasix due to worsening renal function pt and family does not want dialysis Flagyl for cdiff, still has diarrhea- add [facility] palliative care --spoke to Laura and pt-- she is receptive to go to [facility]-- daughter in agreement PT lis
[2016-05-08] MEDS ORDERED: PT OWN MED DRAWER 7, Y5N ONE ×3 (13:12→17:33)
[2016-05-08] MEDS: CALCIUM ACETATE 667 MG CAPSULE (FP) PO SCH ×3 (13:55→17:36)
[2016-05-08] MEDS: PANTOPRAZOLE 40 MG TABLET (FP) PO SCH (13:56)
[2016-05-08] MEDS: DRONABINOL 2.5 MG CAPSULE PO SCH (13:56)
--- NOTE | 2016-05-08 13:56 | PN ---
Progress Note (short form) - Note Progress Note: Renal Follow up for SUSY/CKD/Volume Overload Pt seen and examined at the bedside diarrhea improved no acute complaints Vital Signs Temperature 97.3 F L 05/08/16 06:00 Pulse Rate 94 H 05/08/16 06:00 Respiratory Rate 20 05/08/16 06:00 Blood Pressure 112/66 05/08/16 06:00 O2 Sat by Pulse Oximetry (%) 96 05/07/16 21:00 Intake & Output 05/05/16 05/06/16 05/07/16 05/08/16 23:59 23:59 23:59 23:59 Intake Total 1000 250 600 240 Output Total 1100 1050 900 Balance -100 -800 -300 240 Weight 144 lb 2 oz 141 lb 14.4 oz 140 lb 2 oz 142 lb 8 oz Gen: NAD, awake and alert CVS: RRR, No M/R Lungs: + rales b/l lung ascencio Abd: soft NT/ND Ext: 1+ edema in LE CBC, BMP 05/08/16 06:00 05/08/16 06:00 Laboratory Tests 05/08/16 06:00 Calcium 8.5 Phosphorus 4.2 Magnesium 2.2 Current Medications Albuterol Sulfate (Ventolin 0.083% Nebulizer Soln -) 1 amp NEB Q4H PRN PRN Reason: SHORT OF BREATH/WHEEZING Calcium Acetate (Phoslo -) 667 mg PO TIDCM [facility] Last Admin: 05/07/16 18:26 Dose: 667 mg Dronabinol (Marinol -) 5 mg PO DAILY [facility] Last Admin: 05/07/16 13:38 Dose: 5 mg Insulin Aspart (Novolog Vial Sliding Scale -) 1 vial SQ ACHS [facility] PRN Reason: Protocol Last Admin: 05/08/16 06:07 Dose: Not Given Metronidazole (Flagyl -) 500 mg PO TID [facility] Last Admin: 05/08/16 05:29 Dose: 500 mg Oxycodone HCl (Roxicodone -) 5 mg PO Q6H PRN PRN Reason: BACK PAIN Pantoprazole Sodium (Protonix -) 40 mg PO DAILY [facility] Last Admin: 05/07/16 13:11 Dose: 40 mg Tamoxifen Citrate (Tamoxifen Citrate) 20 mg PO DAILY [facility] Last Admin: 05/07/16 18:25 Dose: 20 mg Vancomycin HCl (Vancomycin Oral Solution) 125 mg PO Q6HPO [facility] A/p 76 year odl Woman with Breast Ca, Hypertension, CHF (right heart), DM, CKD with recent SUSY from Left Hydronephrosis presented with sob, worsening LE edema and found to have acute HF. #Acute on chronic Renal Insufficiency Renal function with mild improvement after stopping diuretics no indication for VENEREAL DISEASE CONTROL HEAD if pt to be discharged to hospice would benefit from standing oral diuretic #Acute CHF volume status improved holding diuretics now Cardiology following Pt awaiting hospice placement Cade Altamirano DO
[2016-05-08] MEDS: VANCOMYCIN 250 MG/5 ML ORAL SOLUTION PO SCH ×2 (13:57→17:36)
--- NOTE | 2016-05-08 15:30 | PN ---
Progress Note, Physician History of Present Illness: pulmonary alert,feeling better,oob-chair,-sob - Current Medication List Current Medications: Active Medications Albuterol Sulfate (Ventolin 0.083% Nebulizer Soln -) 1 amp NEB Q4H PRN PRN Reason: SHORT OF BREATH/WHEEZING Calcium Acetate (Phoslo -) 667 mg PO TIDCM [facility] Last Admin: 05/08/16 13:55 Dose: 667 mg Dronabinol (Marinol -) 5 mg PO DAILY [facility] Last Admin: 05/08/16 13:56 Dose: 5 mg Insulin Aspart (Novolog Vial Sliding Scale -) 1 vial SQ ACHS [facility] PRN Reason: Protocol Last Admin: 05/08/16 13:56 Dose: Not Given Metronidazole (Flagyl -) 500 mg PO TID [facility] Last Admin: 05/08/16 13:57 Dose: 500 mg Oxycodone HCl (Roxicodone -) 5 mg PO Q6H PRN PRN Reason: BACK PAIN Pantoprazole Sodium (Protonix -) 40 mg PO DAILY [facility] Last Admin: 05/08/16 13:56 Dose: 40 mg Tamoxifen Citrate (Tamoxifen Citrate) 20 mg PO DAILY [facility] Last Admin: 05/07/16 18:25 Dose: 20 mg Vancomycin HCl (Vancomycin Oral Solution) 125 mg PO Q6HPO [facility] Last Admin: 05/08/16 13:57 Dose: 5 ml - Objective Vital Signs: Vital Signs Temperature 97.3 F L 05/08/16 06:00 Pulse Rate 94 H 05/08/16 06:00 Respiratory Rate 20 05/08/16 06:00 Blood Pressure 112/66 05/08/16 06:00 O2 Sat by Pulse Oximetry (%) 96 05/07/16 21:00 Constitutional: Yes: Well Nourished, Calm Eyes: Yes: WNL, Occular Prosthesis Neck: Yes: WNL Cardiovascular: Yes: Regular Rate and Rhythm, S1, S2 Respiratory: Yes: Rales (few bibasilar crackles) Gastrointestinal: Yes: Normal Bowel Sounds, Soft Extremities: Yes: WNL Edema: No Labs: CBC, BMP 05/08/16 06:00 05/08/16 06:00 INR, PTT INR 1.20 (0.82-1.09) H 05/01/16 15:05 Assessment/Plan roblem List - Problems (1) CHF (congestive heart failure) Code(s): I50.9 - HEART FAILURE, UNSPECIFIED (2) Breast cancer Code(s): C50.919 - [facility] UNSPECIF[facility] FEMALE BREAST (3) Kidney failure Code(s): N19 - UNSPECIFIED KIDNEY FAILURE (4) UTI (urinary tract infection) Code(s): N39.0 - URINARY TRACT INFECTION, SITE NOT SPECIFIED Assessment/Plan -O2 -Strict I&O's -ABX - monitor lytes,renal function DR BLACKWOOD
[2016-05-08] MEDS: TAMOXIFEN CITRATE 10 MG TABLET PO SCH (17:36)
[2016-05-09] MEDS: VANCOMYCIN 250 MG/5 ML ORAL SOLUTION PO SCH ×4 (00:05→18:49)
[2016-05-09] MEDS: metroNIDAZOLE 250 MG TABLET PO SCH ×3 (05:32→20:59)
[2016-05-09] MEDS: INSULIN SLIDING SCALE (NOVOLOG) 1 VIAL SQ SCH ×4 (06:01→20:59)
--- NOTE | 2016-05-09 10:12 | PN ---
Progress Note, Physician Chief Complaint: no new complaints - Current Medication List Current Medications: Active Medications Albuterol Sulfate (Ventolin 0.083% Nebulizer Soln -) 1 amp NEB Q4H PRN PRN Reason: SHORT OF BREATH/WHEEZING Calcium Acetate (Phoslo -) 667 mg PO TIDCM [facility] Last Admin: 05/08/16 17:36 Dose: 667 mg Dronabinol (Marinol -) 5 mg PO DAILY [facility] Last Admin: 05/08/16 13:56 Dose: 5 mg Insulin Aspart (Novolog Vial Sliding Scale -) 1 vial SQ ACHS [facility] PRN Reason: Protocol Last Admin: 05/09/16 06:01 Dose: Not Given Metronidazole (Flagyl -) 500 mg PO TID [facility] Last Admin: 05/09/16 05:32 Dose: 500 mg Oxycodone HCl (Roxicodone -) 5 mg PO Q6H PRN PRN Reason: BACK PAIN Pantoprazole Sodium (Protonix -) 40 mg PO DAILY [facility] Last Admin: 05/08/16 13:56 Dose: 40 mg Tamoxifen Citrate (Tamoxifen Citrate) 20 mg PO DAILY [facility] Last Admin: 05/08/16 17:36 Dose: 20 mg Vancomycin HCl (Vancomycin Oral Solution) 125 mg PO Q6HPO [facility] Last Admin: 05/09/16 05:32 Dose: 125 ml - Objective Vital Signs: Vital Signs Temperature 97.4 F L 05/09/16 06:26 Pulse Rate 64 05/09/16 06:26 Respiratory Rate 20 05/09/16 06:26 Blood Pressure 113/63 05/09/16 06:26 O2 Sat by Pulse Oximetry (%) 97 05/08/16 21:00 Constitutional: Yes: No Distress Eyes: Yes: Conjunctiva Clear Cardiovascular: Yes: Regular Rate and Rhythm Respiratory: Yes: Other (decreased breath sounds at bases) Gastrointestinal: Yes: Soft Edema: Yes Edema: LLE: 1+, RLE: 1+ Neurological: Yes: Alert Labs: CBC, BMP 05/08/16 06:00 05/08/16 06:00 INR, PTT INR 1.20 (0.82-1.09) H 05/01/16 15:05 Laboratory Tests 05/08/16 05/08/16 06:00 06:00 WBC 2.8 L Hgb 8.1 L Hct 25.2 L Plt Count 136 Potassium 3.7 Creatinine 4.0 H Assessment/Plan Assessment/Plan 76 year old woman with a history of HTN, chronic diastolic chf, CKD, JOSUÉ h/o stents, DMII, breast Ca with mets admitted with sob, lethargy, b/l LE swelling, hypotension. SOB-likely multifactorial including acute on chronic diastolic CHF -Lasix stopped as developing worsening intravascular depletion, bun/creat increased -monitor bun/creat/electrolytes closely -repeat echo showed normal LV function, mildly reduced RV function with severe TR, mild PAH -Unlikely PE- LE venous duplex showed no DVT HTN-hypotensive on admission BP now improved, lower end of normal -hold anti-HTN meds C Diff- on flagyl -as per PMD
--- NOTE | 2016-05-09 11:56 | PN ---
Progress Note (short form) - Note Progress Note: PULMONARY Denies shortness of breath or chest pain. No cough or wheezing. No fevers recorded. Last Vital Signs Temp Pulse Resp BP Pulse Ox 97.4 F L 64 20 113/63 97 05/09/16 06:26 05/09/16 06:26 05/09/16 06:26 05/09/16 06:26 05/08/16 21:00 Gen: NAD at rest Heart: RRR Lung: basilar rales Abd: soft, nontender EXt: no edema CBC, BMP 05/08/16 06:00 05/08/16 06:00 Active Medications Albuterol Sulfate (Ventolin 0.083% Nebulizer Soln -) 1 amp NEB Q4H PRN PRN Reason: SHORT OF BREATH/WHEEZING Calcium Acetate (Phoslo -) 667 mg PO TIDCM [facility] Last Admin: 05/08/16 17:36 Dose: 667 mg Dronabinol (Marinol -) 5 mg PO DAILY [facility] Last Admin: 05/08/16 13:56 Dose: 5 mg Insulin Aspart (Novolog Vial Sliding Scale -) 1 vial SQ ACHS [facility] PRN Reason: Protocol Last Admin: 05/09/16 06:01 Dose: Not Given Metronidazole (Flagyl -) 500 mg PO TID [facility] Last Admin: 05/09/16 05:32 Dose: 500 mg Oxycodone HCl (Roxicodone -) 5 mg PO Q6H PRN PRN Reason: BACK PAIN Pantoprazole Sodium (Protonix -) 40 mg PO DAILY [facility] Last Admin: 05/08/16 13:56 Dose: 40 mg Tamoxifen Citrate (Tamoxifen Citrate) 20 mg PO DAILY [facility] Last Admin: 05/08/16 17:36 Dose: 20 mg Vancomycin HCl (Vancomycin Oral Solution) 125 mg PO Q6HPO [facility] Last Admin: 05/09/16 05:32 Dose: 125 ml A/P Acute on Chronic LV Diastolic Heart Failure CKD Breast Ca HTN DM UTI + C Diff Ag - continue antibiotics - lasix as needed - inhaled bronchodilators - O2 to keep SpO2 >90% - DVT prophylaxis
--- NOTE | 2016-05-09 12:08 | PN ---
Progress Note, Physician Chief Complaint: not SOB no chest pain has urine output not in distress has decreased frequency of loose stools has more formed stools per staff - Current Medication List Current Medications: Active Medications Albuterol Sulfate (Ventolin 0.083% Nebulizer Soln -) 1 amp NEB Q4H PRN PRN Reason: SHORT OF BREATH/WHEEZING Calcium Acetate (Phoslo -) 667 mg PO TIDCM [facility] Last Admin: 05/08/16 17:36 Dose: 667 mg Dronabinol (Marinol -) 5 mg PO DAILY [facility] Last Admin: 05/08/16 13:56 Dose: 5 mg Insulin Aspart (Novolog Vial Sliding Scale -) 1 vial SQ ACHS [facility] PRN Reason: Protocol Last Admin: 05/09/16 06:01 Dose: Not Given Metronidazole (Flagyl -) 500 mg PO TID [facility] Last Admin: 05/09/16 05:32 Dose: 500 mg Oxycodone HCl (Roxicodone -) 5 mg PO Q6H PRN PRN Reason: BACK PAIN Pantoprazole Sodium (Protonix -) 40 mg PO DAILY [facility] Last Admin: 05/08/16 13:56 Dose: 40 mg Tamoxifen Citrate (Tamoxifen Citrate) 20 mg PO DAILY [facility] Last Admin: 05/08/16 17:36 Dose: 20 mg Vancomycin HCl (Vancomycin Oral Solution) 125 mg PO Q6HPO [facility] Last Admin: 05/09/16 05:32 Dose: 125 ml - Objective Vital Signs: Vital Signs Temperature 97.4 F L 05/09/16 06:26 Pulse Rate 64 05/09/16 06:26 Respiratory Rate 20 05/09/16 06:26 Blood Pressure 113/63 05/09/16 06:26 O2 Sat by Pulse Oximetry (%) 97 05/08/16 21:00 Constitutional: Yes: No Distress Cardiovascular: Yes: Regular Rate and Rhythm Respiratory: Yes: Diminished, Rales Gastrointestinal: Yes: Normal Bowel Sounds, Soft, Abdomen, Obese. No: Distention, Tenderness Edema: Yes (decreased) Psychiatric: Yes: Alert Labs: CBC, BMP 05/08/16 06:00 05/08/16 06:00 INR, PTT INR 1.20 (0.82-1.09) H 05/01/16 15:05 Problem List - Problems (1) CHF (congestive heart failure) Code(s): I50.9 - HEART FAILURE, UNSPECIFIED (2) Chronic diastolic CHF (congestive heart failure) Code(s): I50.32 - CHRONIC DIASTOLIC (CONGESTIVE) HEART FAILURE (3) DM II (diabetes mellitus, type II), controlled Code(s): E11.9 - TYPE 2 DIABETES MELLITUS WITHOUT COMPLICATIONS Qualifiers: Diabetes mellitus complication status: with neurologic complications Diabetes mellitus complication detail: with autonomic neuropathy (4) Edema Code(s): R60.9 - EDEMA, UNSPECIFIED (5) HLD (hyperlipidemia) Code(s): E78.5 - HYPERLIPIDEMIA, UNSPECIFIED (6) UTI (urinary tract infection) Code(s): N39.0 - URINARY TRACT INFECTION, SITE NOT SPECIFIED Qualifiers: Urinary tract infection type: acute cystitis (7) Hypotension Code(s): I95.9 - HYPOTENSION, UNSPECIFIED Qualifiers: Hypotension type: other hypotension type Qualified Code(s): I95.89 - Other hypotension Assessment/Plan plan off Lasix due to worsening renal function pt and family does not want dialysis Flagyl and Vanco PO for Cdiff diarrhea improving OOB daily pain control as needed palliative care --spoke to Laura and pt-- she is receptive to go to [facility]-- daughter in agreement PT lis
[2016-05-09] MEDS: CALCIUM ACETATE 667 MG CAPSULE (FP) PO SCH ×3 (12:21→18:49)
[2016-05-09] MEDS: TAMOXIFEN CITRATE 10 MG TABLET PO SCH (12:21)
[2016-05-09] MEDS: DRONABINOL 2.5 MG CAPSULE PO SCH (12:21)
[2016-05-09] MEDS: PANTOPRAZOLE 40 MG TABLET (FP) PO SCH (12:21)
--- NOTE | 2016-05-09 14:46 | PN ---
Progress Note (short form) - Note Progress Note: Renal Follow up for SUSY/CKD/Volume Overload Pt seen and examined at the bedside said that she had difficulty sleeping last night - could not specify why denies any sob at this time, no cough no fever or chills diarrhea improved Vital Signs Temperature 97.4 F L 05/09/16 06:26 Pulse Rate 64 05/09/16 06:26 Respiratory Rate 20 05/09/16 06:26 Blood Pressure 113/63 05/09/16 06:26 O2 Sat by Pulse Oximetry (%) 97 05/08/16 21:00 Intake & Output 05/06/16 05/07/16 05/08/16 05/09/16 23:59 23:59 23:59 23:59 Intake Total 250 600 340 Output Total 1050 900 Balance -800 -300 340 Weight 141 lb 14.4 oz 140 lb 2 oz 142 lb 8 oz 142 lb 1 oz Gen: NAD, awake and alert CVS: RRR, No M/R Lungs: + rales Right lung base Abd: soft NT/ND Ext: 1+ edema in LE CBC, BMP 05/08/16 06:00 05/08/16 06:00 Laboratory Tests 05/08/16 06:00 Calcium 8.5 Phosphorus 4.2 Magnesium 2.2 Current Medications Albuterol Sulfate (Ventolin 0.083% Nebulizer Soln -) 1 amp NEB Q4H PRN PRN Reason: SHORT OF BREATH/WHEEZING Calcium Acetate (Phoslo -) 667 mg PO TIDCM [facility] Last Admin: 05/09/16 12:21 Dose: 667 mg Dronabinol (Marinol -) 5 mg PO DAILY [facility] Last Admin: 05/09/16 12:21 Dose: 5 mg Insulin Aspart (Novolog Vial Sliding Scale -) 1 vial SQ ACHS [facility] PRN Reason: Protocol Last Admin: 05/09/16 12:21 Dose: Not Given Metronidazole (Flagyl -) 500 mg PO TID [facility] Last Admin: 05/09/16 05:32 Dose: 500 mg Oxycodone HCl (Roxicodone -) 5 mg PO Q6H PRN PRN Reason: BACK PAIN Pantoprazole Sodium (Protonix -) 40 mg PO DAILY [facility] Last Admin: 05/09/16 12:21 Dose: 40 mg Tamoxifen Citrate (Tamoxifen Citrate) 20 mg PO DAILY [facility] Last Admin: 05/09/16 12:21 Dose: 20 mg Vancomycin HCl (Vancomycin Oral Solution) 125 mg PO Q6HPO [facility] Last Admin: 05/09/16 05:32 Dose: 125 ml A/p 76 year odl Woman with Breast Ca, Hypertension, CHF (right heart), DM, CKD with recent SUSY from Left Hydronephrosis presented with sob, worsening LE edema and found to have acute HF. #Acute on chronic Renal Insufficiency no new labs edema stable, no acute uremic symptoms pt appears comfortable but does have rales on lung exam for hospice care may benefit from standing oral diuretic to prevent pulmonary congestion start torsemide 20mg Daily Check BMP in the AM to ensure K is not too low Prognosis guarded Cdae Altamirano DO
[2016-05-09] MEDS: TORSEMIDE 20 MG TABLET (FP) PO SCH (16:15)
--- NOTE | 2016-05-09 17:47 | PN ---
Progress Note (short form) - Note Progress Note: Patient seen and examined c/o exertional SOB Last Vital Signs Temp Pulse Resp BP Pulse Ox 97.3 F L 66 20 136/64 97 05/09/16 15:32 05/09/16 15:32 05/09/16 15:32 05/09/16 15:32 05/08/16 21:00 Cor: RSR, No murmurs, No gallops Lungs: Clear to P&A Abd: Soft, Normal bowel sounds, No organomegaly Ext:No significant edema Skin: No rashes, Integument intact Current Medications Albuterol Sulfate (Ventolin 0.083% Nebulizer Soln -) 1 amp NEB Q4H PRN PRN Reason: SHORT OF BREATH/WHEEZING Calcium Acetate (Phoslo -) 667 mg PO TIDCM [facility] Last Admin: 05/09/16 15:44 Dose: 667 mg Dronabinol (Marinol -) 5 mg PO DAILY [facility] Last Admin: 05/09/16 12:21 Dose: 5 mg Insulin Aspart (Novolog Vial Sliding Scale -) 1 vial SQ ACHS [facility] PRN Reason: Protocol Last Admin: 05/09/16 12:21 Dose: Not Given Metronidazole (Flagyl -) 500 mg PO TID [facility] Last Admin: 05/09/16 16:15 Dose: 500 mg Oxycodone HCl (Roxicodone -) 5 mg PO Q6H PRN PRN Reason: BACK PAIN Pantoprazole Sodium (Protonix -) 40 mg PO DAILY [facility] Last Admin: 05/09/16 12:21 Dose: 40 mg Tamoxifen Citrate (Tamoxifen Citrate) 20 mg PO DAILY [facility] Last Admin: 05/09/16 12:21 Dose: 20 mg Torsemide (Demadex -) 20 mg PO DAILY [facility] Last Admin: 05/09/16 16:15 Dose: 20 mg Vancomycin HCl (Vancomycin Oral Solution) 125 mg PO Q6HPO [facility] Last Admin: 05/09/16 12:00 Dose: 125 ml A/P 76 y/o patient with metastatic breast cancer , s/p multiple lines of therapy, now worsenig renal disease/shortness of breath Concern for lymphangitic spread poor overall prognosis ongoing discussion regarding calvary placement
[2016-05-10] MEDS: VANCOMYCIN 250 MG/5 ML ORAL SOLUTION PO SCH ×2 (00:20→06:12)
[2016-05-10] MEDS: metroNIDAZOLE 250 MG TABLET PO SCH (06:12)
[2016-05-10] MEDS: INSULIN SLIDING SCALE (NOVOLOG) 1 VIAL SQ SCH (06:12)
[2016-05-10 07:34] LABS: MCH 30.1 pg (25.7-33.7); MCHC 32.3 g/dl (32.0-36.0); MEAN CELL VOLUME 93.2 fl (80-96); MEAN PLT VOLUME 9.3 fl (7.5-11.1); PLATELET COUNT 179 K/MM3 (134-434); RDW 17.6 % (11.6-15.6); WHITE BLOOD COUNT 3.8 K/mm3 (4.0-10.0)
[2016-05-10 07:48] VITALS: TEMP 97.2
[2016-05-10 07:55] LABS: CALCIUM 8.6 mg/dL (8.5-10.1); CREATININE 3.6 mg/dL (0.55-1.02)
[2016-05-10] MEDS: DRONABINOL 2.5 MG CAPSULE PO SCH (09:44)
[2016-05-10] MEDS: TORSEMIDE 20 MG TABLET (FP) PO SCH (09:45)
[2016-05-10] MEDS: CALCIUM ACETATE 667 MG CAPSULE (FP) PO SCH (09:45)
[2016-05-10] MEDS: TAMOXIFEN CITRATE 10 MG TABLET PO SCH (09:45)
[2016-05-10] MEDS: PANTOPRAZOLE 40 MG TABLET (FP) PO SCH (09:45)
--- NOTE | 2016-05-10 09:54 | PN ---
Progress Note (short form) - Note Progress Note: SUBJECTIVE: Patient seen and examined. Chart reviewed. Awake and comfortable. Denies pain. Afebrile. Denies diarrhea. OBJECTIVE: Vital Signs - 8 hr 05/10/16 06:00 Temperature 97.2 F L Pulse Rate 67 Respiratory 26 H Rate Blood Pressure 117/55 Intake & Output 05/09/16 05/10/16 05/10/16 23:59 07:59 15:59 Intake Total 120 Balance 120 Weight 63.684 kg Intake: Oral 120 Other: Voiding Method Incontinent # Unmeasured Voids Guerrero 2 Weight Measurement Method Chair Scale Active Medications Albuterol Sulfate (Ventolin 0.083% Nebulizer Soln -) 1 amp NEB Q4H PRN PRN Reason: SHORT OF BREATH/WHEEZING Calcium Acetate (Phoslo -) 667 mg PO TIDCM [facility] Last Admin: 05/10/16 09:45 Dose: 667 mg Dronabinol (Marinol -) 5 mg PO DAILY [facility] Last Admin: 05/10/16 09:44 Dose: 5 mg Insulin Aspart (Novolog Vial Sliding Scale -) 1 vial SQ ACHS [facility] PRN Reason: Protocol Last Admin: 05/10/16 06:12 Dose: Not Given Metronidazole (Flagyl -) 500 mg PO TID [facility] Last Admin: 05/10/16 06:12 Dose: 500 mg Oxycodone HCl (Roxicodone -) 5 mg PO Q6H PRN PRN Reason: BACK PAIN Pantoprazole Sodium (Protonix -) 40 mg PO DAILY [facility] Last Admin: 05/10/16 09:45 Dose: 40 mg Tamoxifen Citrate (Tamoxifen Citrate) 20 mg PO DAILY [facility] Last Admin: 05/10/16 09:45 Dose: 20 mg Torsemide (Demadex -) 20 mg PO DAILY [facility] Last Admin: 05/10/16 09:45 Dose: 20 mg Vancomycin HCl (Vancomycin Oral Solution) 125 mg PO Q6HPO [facility] Last Admin: 05/10/16 06:12 Dose: 125 ml CBC, BMP 05/10/16 06:00 05/10/16 06:00 Laboratory Results - last 24 hr 05/09/16 05/09/16 05/09/16 12:08 18:48 20:57 WBC RBC Hgb Hct MCV MCHC RDW Plt Count MPV Sodium Potassium Chloride Carbon Dioxide Anion Gap BUN Creatinine POC Glucometer 80 132 135 Random Glucose Calcium 05/10/16 05/10/16 06:00 06:00 WBC 3.8 L D RBC 2.74 L Hgb 8.2 L Hct 25.5 L MCV 93.2 MCHC 32.3 RDW 17.6 H Plt Count 179 D MPV 9.3 Sodium 145 Potassium 3.2 L Chloride 113 H Carbon Dioxide 26 Anion Gap 6 L BUN 72 H Creatinine 3.6 H POC Glucometer Random Glucose 76 Calcium 8.6 PHYSICAL EXAMINATION: Constitutional: Yes: No Distress Cardiovascular: Yes: Regular Rate and Rhythm Respiratory: Yes: Diminished at the bases. Gastrointestinal: Yes: Normal Bowel Sounds, Soft, Abdomen, Obese. No: Distention, Tenderness Edema: Yes (decreased) Psychiatric: Yes: Alert ASSESSMENT & PLAN: - Stable. - Chronic health issues. - Discharge to [place] today. - Patient in agreement. Problem List - Problems (1) CHF (congestive heart failure) Code(s): I50.9 - HEART FAILURE, UNSPECIFIED (2) Chronic diastolic CHF (congestive heart failure) Code(s): I50.32 - CHRONIC DIASTOLIC (CONGESTIVE) HEART FAILURE (3) DM II (diabetes mellitus, type II), controlled Code(s): E11.9 - TYPE 2 DIABETES MELLITUS WITHOUT COMPLICATIONS Qualifiers: Diabetes mellitus complication status: with neurologic complications Diabetes mellitus complication detail: with autonomic neuropathy (4) Edema Code(s): R60.9 - EDEMA, UNSPECIFIED (5) HLD (hyperlipidemia) Code(s): E78.5 - HYPERLIPIDEMIA, UNSPECIFIED (6) UTI (urinary tract infection) Code(s): N39.0 - URINARY TRACT INFECTION, SITE NOT SPECIFIED Qualifiers: Urinary tract infection type: acute cystitis (7) Hypotension Code(s): I95.9 - HYPOTENSION, UNSPECIFIED Qualifiers: Hypotension type: other hypotension type Qualified Code(s): I95.89 - Other hypotension Documentation prepared by Dana Samuel, acting as a certified medical technician for Eleuterio Mejias MD. <Dana Samuel - Last Filed: 05/10/16 10:27> Problem List - Problems (1) Breast cancer metastasized to bone Code(s): C50.919 - MALIGNANT NEOPLASM OF UNSP SITE OF UNSPECIFIED FEMALE BREAST C79.51 - SECONDARY MALIGNANT NEOPLASM OF BONE <Eleuterio Mejias - Last Filed: 05/10/16 09:54>
--- NOTE | 2016-05-10 09:54 | PN ---
Progress Note, Physician Chief Complaint: No distress feels fine Denies chest pain or SOB - Current Medication List Current Medications: Active Medications Albuterol Sulfate (Ventolin 0.083% Nebulizer Soln -) 1 amp NEB Q4H PRN PRN Reason: SHORT OF BREATH/WHEEZING Calcium Acetate (Phoslo -) 667 mg PO TIDCM [facility] Last Admin: 05/10/16 09:45 Dose: 667 mg Dronabinol (Marinol -) 5 mg PO DAILY [facility] Last Admin: 05/10/16 09:44 Dose: 5 mg Insulin Aspart (Novolog Vial Sliding Scale -) 1 vial SQ ACHS [facility] PRN Reason: Protocol Last Admin: 05/10/16 06:12 Dose: Not Given Metronidazole (Flagyl -) 500 mg PO TID [facility] Last Admin: 05/10/16 06:12 Dose: 500 mg Oxycodone HCl (Roxicodone -) 5 mg PO Q6H PRN PRN Reason: BACK PAIN Pantoprazole Sodium (Protonix -) 40 mg PO DAILY [facility] Last Admin: 05/10/16 09:45 Dose: 40 mg Tamoxifen Citrate (Tamoxifen Citrate) 20 mg PO DAILY [facility] Last Admin: 05/10/16 09:45 Dose: 20 mg Torsemide (Demadex -) 20 mg PO DAILY [facility] Last Admin: 05/10/16 09:45 Dose: 20 mg Vancomycin HCl (Vancomycin Oral Solution) 125 mg PO Q6HPO [facility] Last Admin: 05/10/16 06:12 Dose: 125 ml - Objective Vital Signs: Vital Signs Temperature 97.2 F L 05/10/16 06:00 Pulse Rate 67 05/10/16 06:00 Respiratory Rate 26 H 05/10/16 06:00 Blood Pressure 117/55 05/10/16 06:00 O2 Sat by Pulse Oximetry (%) 96 05/09/16 20:54 Constitutional: Yes: No Distress Eyes: Yes: Conjunctiva Clear Cardiovascular: Yes: Regular Rate and Rhythm Respiratory: Yes: Other (slight decreased breath sounds at bases) Gastrointestinal: Yes: Soft Edema: Yes Edema: LLE: 1+, RLE: 1+ Neurological: Yes: Alert Labs: CBC, BMP 05/10/16 06:00 05/10/16 06:00 INR, PTT INR 1.20 (0.82-1.09) H 05/01/16 15:05 Assessment/Plan Assessment/Plan 76 year old woman with a history of HTN, chronic diastolic chf, CKD, JOSUÉ h/o stents, DMII, breast Ca with mets admitted with sob, lethargy, b/l LE swelling, hypotension. SOB-likely multifactorial including acute on chronic diastolic CHF -now on torsemide -monitor bun/creat/electrolytes closely -repeat echo showed normal LV function, mildly reduced RV function with severe TR, mild PAH -Unlikely PE- LE venous duplex showed no DVT C Diff- on flagyl -as per PMD
[2016-05-10] MEDS ORDERED: POTASSIUM CHLORIDE TABS 20 MEQ TABLET.ER (FP) PO ONE (09:56)
--- NOTE | 2016-05-10 10:27 | DS ---
Physical Examination Vital Signs: Vital Signs Temperature 97.2 F L 05/10/16 06:00 Pulse Rate 67 05/10/16 06:00 Respiratory Rate 26 H 05/10/16 06:00 Blood Pressure 117/55 05/10/16 06:00 O2 Sat by Pulse Oximetry (%) 96 05/09/16 20:54 Labs: CBC, BMP 05/10/16 06:00 05/10/16 06:00 <Eleuterio Mejias - Last Filed: 05/10/16 10:27> Vital Signs: Vital Signs Temperature 97.2 F L 05/10/16 06:00 Pulse Rate 67 05/10/16 06:00 Respiratory Rate 26 H 05/10/16 06:00 Blood Pressure 117/55 05/10/16 06:00 O2 Sat by Pulse Oximetry (%) 96 05/09/16 20:54 Findings/Remarks: See today's progress note. Labs: CBC, BMP 05/10/16 06:00 05/10/16 06:00 <Dana Samuel - Last Filed: 05/10/16 10:30> Discharge Summary Reason For Visit: CHF Current Active Problems CHF (congestive heart failure) (Acute) Chronic diastolic CHF (congestive heart failure) (Acute) DM II (diabetes mellitus, type II), controlled (Acute) Edema (Acute) HLD (hyperlipidemia) (Acute) HTN (hypertension) (Acute) Hypotension (Acute) Renal artery stenosis (Acute) SOB (shortness of breath) (Acute) - Home Medications Comprehensive Discharge Medication List: Ambulatory Orders Amlodipine Besylate [Norvasc -] 5 mg PO DAILY 05/01/16 Atenolol [Tenormin] 50 mg PO DAILY 05/01/16 Calcium Acetate [Phoslo -] 667 mg PO TID 05/01/16 Dronabinol [Marinol] 5 mg PO DAILY 05/01/16 Oxycodone HCl 5 mg PO QID 05/01/16 Pantoprazole Sodium [Protonix] 40 mg PO DAILY 05/01/16 Polyethylene Glycol 3350 [Miralax 119 gm Btl -] 17 gm PO DAILY 05/01/16 Tamoxifen Citrate 20 mg PO DAILY 05/01/16 Albuterol 0.083% Nebulizer Virgie [Ventolin 0.083% Nebulizer Soln -] 1 amp NEB Q4H PRN #0 amp 05/10/16 Insulin Sliding Scale [Novolog Vial Sliding Scale -] 1 vial SQ ACHS units 05/10 Metronidazole [Flagyl -] 500 mg PO TID #21 tablet 05/10/16 Torsemide [Demadex -] 20 mg PO DAILY tablet 05/10/16 Vancomycin Oral Solution 125 mg PO Q6HPO #40 ml 05/10/16 <Eleuterio Mejias - Last Filed: 05/10/16 10:27> Current Active Problems CHF (congestive heart failure) (Acute) Chronic diastolic CHF (congestive heart failure) (Acute) DM II (diabetes mellitus, type II), controlled (Acute) Edema (Acute) HLD (hyperlipidemia) (Acute) HTN (hypertension) (Acute) Hypotension (Acute) Renal artery stenosis (Acute) SOB (shortness of breath) (Acute) Hospital Course: Patient is admitted due to worsening renal function. Patient has metastatic breast Ca. Overall not doing better. Now being transferred to [place] today. Patient also found to be C. Diff positive. Currently on antibiotics. Meds reconciled. Discussed with nursing staff also. Documentation prepared by Dana Samuel, acting as a medical services assistant for Eleuterio Mejias MD. - Home Medications Comprehensive Discharge Medication List: Ambulatory Orders Amlodipine Besylate [Norvasc -] 5 mg PO DAILY 05/01/16 Atenolol [Tenormin] 50 mg PO DAILY 05/01/16 Calcium Acetate [Phoslo -] 667 mg PO TID 05/01/16 Dronabinol [Marinol] 5 mg PO DAILY 05/01/16 Oxycodone HCl 5 mg PO QID 05/01/16 Pantoprazole Sodium [Protonix] 40 mg PO DAILY 05/01/16 Polyethylene Glycol 3350 [Miralax 119 gm Btl -] 17 gm PO DAILY 05/01/16 Tamoxifen Citrate 20 mg PO DAILY 05/01/16 Albuterol 0.083% Nebulizer Virgie [Ventolin 0.083% Nebulizer Soln -] 1 amp NEB Q4H PRN #0 amp 05/10/16 Insulin Sliding Scale [Novolog Vial Sliding Scale -] 1 vial SQ ACHS units 05/10 Metronidazole [Flagyl -] 500 mg PO TID #21 tablet 05/10/16 Torsemide [Demadex -] 20 mg PO DAILY tablet 05/10/16 Vancomycin Oral Solution 125 mg PO Q6HPO #40 ml 05/10/16 <Dana Samuel - Last Filed: 05/10/16 10:30> Condition: Guarded - Instructions Referrals: Briseyda Recinos MD [Primary Care Provider] -
[2016-05-10 11:54] VITALS: BP 149/70; PULSE 70
== END 2016-05-10 11:25 | disposition hospice, inpatient (51) | DRG 291 ==
LOC: JER 14:03 → JERBED 18:39 → J4S 21:43 → JICU 05-02 03:29 → J5S 05-03 17:18 → J7W 05-06 20:38
PROVIDERS: ADMIT Internal Medicine; ATTEND Internal Medicine
PROC: 30233N1 Transfusion of Nonautologous Red Blood Cells into Peripheral Vein, Percutaneous Approach (ICD-10-PCS; principal; 2016-05-02)
DX: I13.0 Hypertensive heart and chronic kidney disease with heart failure and stage 1 through stage 4 chronic kidney disease, or unspecified chronic kidney disease (principal); I50.33 Acute on chronic diastolic (congestive) heart failure; J18.9 Pneumonia, unspecified organism; N18.4 Chronic kidney disease, stage 4 (severe); C78.4 Secondary malignant neoplasm of small intestine; C79.51 Secondary malignant neoplasm of bone; N39.0 Urinary tract infection, site not specified; N17.9 Acute kidney failure, unspecified; N13.39 Other hydronephrosis; A04.7 Enterocolitis due to Clostridium difficile; D61.818 Other pancytopenia; E11.43 Type 2 diabetes mellitus with diabetic autonomic (poly)neuropathy; D64.81 Anemia due to antineoplastic chemotherapy; T45.1X5A Adverse effect of antineoplastic and immunosuppressive drugs, initial encounter; C50.919 Malignant neoplasm of unspecified site of unspecified female breast; I70.1 Atherosclerosis of renal artery; E86.0 Dehydration; R68.0 Hypothermia, not associated with low environmental temperature; D69.6 Thrombocytopenia, unspecified
CPT/HCPCS: 36415; 36430; 71010-TC; 76775-TC; 80048; 80053; 81003; 81015; 82436; 82550; 82570; 83605; 83735; 83880; 84100; 84133; 84156; 84300; 84439; 84443; 84481; 84484; 84540; 85025; 85027; 85610; 85730; 86850; 86900; 86901; 86922; 87040; 87086; 87324; 87449; 93005; 93010; 93306-TC; 93970-TC; 97116-GP; 97163-GP; 99285-25; J1644; P9058